=== PATIENT | female | born 1975 | race Caucasian/White ===

== ENCOUNTER 2016-12-07 19:37 | Emergency (ER) | payer SELFPAY ==
[2016-12-07 19:51] VITALS: BP 171/91
[2016-12-07] MEDS ORDERED: Ketorolac 60 MG/2 ML SDV IM ONE (20:53)
[2016-12-07] MEDS ORDERED: diphenhydrAMINE 50 MG/ML SDV IM ONE (20:54)
[2016-12-07] MEDS ORDERED: Haloperidol Lactate 5 MG/ML SDV IM ONE (20:54)
[2016-12-07] MEDS ORDERED: Ondansetron 4 MG Tab.DIS PO ONE (20:58)
--- NOTE | 2016-12-07 21:05 | EDM.PDOC ---
ED HPI HEADACHE COMPLAINT - General Chief Complaint: Headache Stated Complaint: POSSIBLE MIGRAINE Time Seen by Provider: 12/07/16 20:45 Source of Information: Reports: Patient History Limitations: Reports: No limitations - History of Present Illness INITIAL COMMENTS - FREE TEXT/NARRATIVE: Patient is a 41-year-old female who presents to the ED complaining of retro- orbital right-sided migraine that started at approximately 4:30 this afternoon upon awakening. Describes the headache as a throbbing sensation localized with no radiation. Complain of photophobia and hyperacusis. She denies any vision changes. She does have a history of MS and has chronic weakness noted. No new changes noted. She denies recent trauma to her head and or activity that may have precipitated this headache. Denies any changes to medications. She denies being . She denies recent illness, or any fever/chills, shortness of breath, chest pain, abdominal pain, numbness and tingling to extremities, stiff neck, or any additional complaints. Headache is following similar pattern to previous episodes. Timing/Duration: Reports: sudden onset, constant/continuous, waxing/waning Location: Reports: frontal, temporal, right, eye, right Quality: Reports: pounding, squeezing Severity: Reports: moderate, similar to past headaches. Denies: worst headache ever Context: Reports: other (unknown) Associated Symptoms: Reports: hyperacusis, photophobia. Denies: aura, confusion , dizziness, vision changes Treatments FURNACE FILLER: Reports: Other (see below) (none stated ) - Related Data Allergies/ADRs: Allergies Allergy/AdvReac Type Severity Reaction Status Date / Time chlorhexidine Allergy Rash Verified 12/07/16 19:51 ketoconazole Allergy Rash Verified 12/07/16 19:51 Penicillins AdvReac Vomiting Verified 12/07/16 19:51 sulfamethoxazole AdvReac Vomiting Verified 12/07/16 19:51 [From Bactrim] trimethoprim [From Bactrim] AdvReac Vomiting Verified 12/07/16 19:51 Home Meds: Home Meds Ibuprofen [Motrin] 800 mg PO Q8H PRN #20 tablet 08/05/16 [Rx] SUMAtriptan [Imitrex] 50 mg PO Q2H PRN 12/07/16 [History] Past Medical History HEENT History: Reports: Impaired vision Other HEENT History: wears glasses Genitourinary History: Reports: Renal calculus Musculoskeletal History: Reports: Back pain, chronic Neurological History: Reports: Migraines, MS Psychiatric History: Reports: Anxiety, Depression - Infectious Disease History Infectious Disease History: Reports: Chicken pox - Past Surgical History HEENT Surgical History: Reports: Tonsillectomy GI Surgical History: Reports: Appendectomy Musculoskeletal Surgical History: Reports: Other (see below) Other Musculoskeletal Surgeries/Procedures:: right lower back surgery cyst removal Social & Family History - Family History Family Medical History: Noncontributory - Tobacco Use Smoking Status *Q: Former Smoker Second Hand Smoke Exposure: No - Caffeine Use Caffeine Use: Reports: Soda - Alcohol Use Days Per Week of Alcohol Use: 0 - Recreational Drug Use Recreational Drug Use: No ED ROS GENERAL - Review of Systems Review Of Systems: See Below Constitutional: Denies: fever, chills, malaise, weakness, decreased appetite Respiratory: Reports: Cough (intermittent). Denies: Shortness of Breath Cardiovascular: Denies: Chest pain, Dyspnea on exertion, Lightheadedness, Palpitations, Syncope GI/Abdominal: Reports: Nausea (mild). Denies: Abdominal pain, Diarrhea, Vomiting : Reports: no symptoms Musculoskeletal: Denies: neck pain, back pain Neurological: Reports: Headache. Denies: Confusion, Dizziness, Numbness, Syncope, Tingling - Physical Exam Exam: See Below Exam Limited By: No limitations General Appearance: alert, WD/WN, mild distress, other (sitting in dark room on the phone) Eye Exam: bilateral eye: EOMI, PERRL (negative nystagmus) Ears: hearing grossly normal Nose: normal inspection Throat/Mouth: Normal voice, No airway compromise Head Exam: atraumatic, normocephalic Neck: normal inspection, supple, non-tender, full range of motion. No: lymphadenopathy (L), lymphadenopathy (R) Respiratory/Chest: no respiratory distress, lungs clear, normal breath sounds, no accessory muscle use Cardiovascular: normal peripheral pulses, regular rate, rhythm GI/Abdominal: normal bowel sounds, soft, non tender Neuro Exam (Abbreviated): alert, oriented, CN II-XII intact, normal cognition, no motor/sensory deficits, other (romberg intact. No weakness to upper/lower extremities) Back Exam: normal inspection, full range of motion Extremities: normal inspection, non-tender, no pedal edema, normal capillary refill Psychiatric: normal affect, normal mood Skin Exam: Warm, Dry, Intact, Normal color Course - Vital Signs Last Recorded V/S: Last Vital Signs Temp 97.8 F 12/07/16 19:40 Pulse 85 12/07/16 19:40 Resp 18 12/07/16 19:40 BP 171/91 H 12/07/16 19:40 Pulse Ox 98 12/07/16 19:40 - Orders/Labs/Meds Meds: Medications Discontinued Medications Generic Name Dose Route Start Last Admin Trade Name Davina PRGale Reason Stop Dose Admin Diphenhydramine HCl 50 mg 12/07/16 20:54 12/07/16 21:13 Benadryl IM 12/07/16 20:55 50 mg ONETIME ONE Administration Haloperidol Lactate 5 mg 12/07/16 20:54 12/07/16 21:17 Haldol IM 12/07/16 20:55 5 mg ONETIME ONE Administration Ketorolac Tromethamine 30 mg 12/07/16 20:53 12/07/16 21:10 Toradol IM 12/07/16 20:54 30 mg ONETIME ONE Administration Ondansetron HCl 4 mg 12/07/16 20:58 12/07/16 21:08 Zofran Odt PO 12/07/16 20:59 4 mg ONETIME ONE Administration - Re-Assessments/Exams Free Text/Narrative Re-Assessment/Exam: 12/07/16 21:02 Ordered IM Toradol 30 mg, Zofran 4 mg ODT, Benadryl 50 mg IM, and 5 mg IM. 12/07/16 22:20 Reassessment, headache is almost gone. Patient is requesting to be discharged home. Will discharge patient home with instructions as documented. Departure - Departure Time of Disposition: 22:20 Disposition: Home, Self-Care 01 Condition: good Clinical Impression: Migraine Referrals: Marylin Sharma NP [Primary Care Provider] - Forms: ED Department Discharge, Return to Work/School Form Additional Instructions: Followup with your primary care provider as needed for further management and treatment of migraines. No driving this evening since receiving sedative medication while in the ED. Return back to the ED for any new or worsening symptoms.v
== END 2016-12-07 22:35 | disposition home or self-care (01) ==
LOC: JD.ED 19:37
DX: G43.909 Migraine, unspecified, not intractable, without status migrainosus (principal); F41.8 Other specified anxiety disorders; Z90.49 Acquired absence of other specified parts of digestive tract; Z98.890 Other specified postprocedural states; Z87.891 Personal history of nicotine dependence; Z88.0 Allergy status to penicillin; Z88.1 Allergy status to other antibiotic agents; Z88.2 Allergy status to sulfonamides; Z88.8 Allergy status to other drugs, medicaments and biological substances
CPT/HCPCS: 96372; 99283; A9270; J1200; J1630; J1885

== ENCOUNTER 2017-05-25 20:25 | Emergency (ER) | payer OTHER ==
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
[2017-05-25 20:39] VITALS: BP 135/67
[2017-05-25] MEDS ORDERED: Lactated Ringers 1,000 ML IV ONE (20:55)
[2017-05-25] MEDS ORDERED: diphenhydrAMINE 50 MG/ML SDV IVPUSH ONE (20:55)
[2017-05-25] MEDS ORDERED: Ondansetron 4 MG/2 ML SDV IVPUSH ONE (20:55)
--- NOTE | 2017-05-26 09:42 | CR ---
Lumbar spine: AP and lateral views of the lumbar spine were obtained. Comparison: No previous study. Moderate to severe disc space narrowing is noted at L5-S1 with posterior spurring. Other disc spaces are maintained. Vertebral body heights are maintained. Slight anterior osteophytes are seen within the lumbar spine most prominent at L4. Minimal scoliosis is noted. Pedicles as well as visualized portions of the transverse and spinous processes are intact. No subluxation or fracture is seen. Sacroiliac joints are within normal limits. Impression: 1. Slight degenerative change as noted above. Minimal scoliosis. 2. Nothing acute is identified on two-view lumbar spine study. Diagnostic code #2
== END 2017-05-25 23:10 | disposition home or self-care (01) ==
LOC: JD.ED 20:25
DX: S16.1XXA Strain of muscle, fascia and tendon at neck level, initial encounter (principal); R51 Headache; G20 Parkinson's disease; F32.9 Major depressive disorder, single episode, unspecified; Z87.442 Personal history of urinary calculi; Z87.891 Personal history of nicotine dependence; Z88.0 Allergy status to penicillin; Z88.1 Allergy status to other antibiotic agents; Z88.2 Allergy status to sulfonamides; Z88.8 Allergy status to other drugs, medicaments and biological substances; V89.2XXA Person injured in unspecified motor-vehicle accident, traffic, initial encounter; Y92.410 Unspecified street and highway as the place of occurrence of the external cause
CPT/HCPCS: 72100; 96361; 96374; 96375; 99284; J1200; J2405; J3360; J7120; 99283

== ENCOUNTER 2017-06-08 14:14 | Emergency (ER) | payer OTHER ==
[2017-06-08 14:35] VITALS: BP 137/60
[2017-06-08] MEDS ORDERED: Ketorolac 60 MG/2 ML SDV IM ONE (15:16)
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
== END 2017-06-08 15:50 | disposition home or self-care (01) ==
LOC: JD.ED 14:14
DX: M54.41 Lumbago with sciatica, right side (principal); F32.9 Major depressive disorder, single episode, unspecified; Z90.49 Acquired absence of other specified parts of digestive tract; Z87.891 Personal history of nicotine dependence; Z88.0 Allergy status to penicillin; Z88.1 Allergy status to other antibiotic agents; Z88.8 Allergy status to other drugs, medicaments and biological substances
CPT/HCPCS: 96372; 99283; J1885

== ENCOUNTER 2017-06-19 14:27 | Emergency (ER) | payer SELFPAY ==
[2017-06-19 14:41] VITALS: BP 146/88
--- NOTE | 2017-06-19 15:11 | EDM.PDOC ---
ED HPI GENERAL MEDICAL PROBLEM - General Chief Complaint: Genitourinary Problem Stated Complaint: VAGINAL BURNING Time Seen by Provider: 06/19/17 15:00 Source of Information: Reports: Patient History Limitations: Reports: No Limitations - History of Present Illness INITIAL COMMENTS - FREE TEXT/NARRATIVE: 42-year-old female presents for evaluation treatment of vaginal burning. Patient reports that the symptoms have been going on the last 2 weeks. She states that she has been taking Azo for yeast symptoms initially improved but then the symptoms returned. She reports that the pain worsening and therefore decided to come to the ER for further management. Patient is reporting vaginal discharge any foul vaginal odor. She reports discharge has let up today. She reports some dysuria several days ago but then resolves. Denies any fevers, chills, nausea, vomiting, abdominal pain or hematuria. Patient reports that she did have intercourse 2 days ago. Reports that her fianc has a ketoconazole cream that he may have used which may have worsened things. She has an allergy to ketoconazole. Patient reports that she cannot take Monistat. States Diflucan has not been working for her in the past. Feels she has a yeast infection today. Vaginal Pain Score (Numeric/FACES): 10 - Related Data Allergies Allergy/AdvReac Type Severity Reaction Status Date / Time chlorhexidine Allergy Rash Verified 06/08/17 14:36 ketoconazole Allergy Rash Verified 05/25/17 21:48 Penicillins AdvReac Vomiting Verified 06/08/17 14:36 sulfamethoxazole AdvReac Vomiting Verified 06/08/17 14:36 [From Bactrim] trimethoprim [From Bactrim] AdvReac Vomiting Verified 06/08/17 14:36 Home Meds: Home Meds Ibuprofen [Motrin] 800 mg PO Q8H PRN #20 tablet 08/05/16 [Rx] Orphenadrine [Norflex] 100 mg PO BID #30 tab.er 06/08/17 [Rx] Nystatin 30 gm TP BID #1 bottle 06/19/17 [Rx] Past Medical History HEENT History: Reports: Impaired Vision Other HEENT History: wears glasses Genitourinary History: Reports: Renal Calculus Musculoskeletal History: Reports: Back Pain, Chronic Neurological History: Reports: Migraines, MS Psychiatric History: Reports: Anxiety, Depression - Infectious Disease History Infectious Disease History: Reports: Chicken Pox - Past Surgical History GI Surgical History: Reports: Appendectomy Social & Family History - Family History Family Medical History: Noncontributory - Tobacco Use Smoking Status *Q: Never Smoker Used Tobacco, but Quit: Yes Month Tobacco Last Used: may Second Hand Smoke Exposure: No - Caffeine Use Caffeine Use: Reports: Soda - Alcohol Use Days Per Week of Alcohol Use: 0 - Recreational Drug Use Recreational Drug Use: No ED ROS GENERAL - Review of Systems Review Of Systems: See Below Constitutional: Denies: Fever GI/Abdominal: Denies: Abdominal Pain, Nausea, Vomiting : Reports: Dysuria (on and off), Other (reprots vaginal burning and discharge ; reports vaginal discharge, minimal today). Denies: Hematuria ED EXAM, RENAL/ - Physical Exam Exam: See Below Exam Limited By: No Limitations General Appearance: Alert, WD/WN, No Apparent Distress Respiratory/Chest: No Respiratory Distress, Lungs Clear, Normal Breath Sounds Cardiovascular: Normal Peripheral Pulses, Regular Rate, Rhythm, No Murmur GI/Abdominal: Soft, Non-Tender (Female) Exam: Normal External Exam, Normal Speculum Exam, Vaginal Discharge (white yeast like discharge; also thinner clear white cdischarge) Neurological: Alert, Oriented, Normal Cognition Psychiatric: Normal Affect, Normal Mood Skin Exam: Warm, Dry, Normal Color Course - Vital Signs Last Recorded V/S: Last Vital Signs Temp 36.8 C 06/19/17 14:40 Pulse 88 06/19/17 14:40 Resp 20 06/19/17 14:40 BP 146/88 H 06/19/17 14:40 Pulse Ox 98 06/19/17 14:40 - Orders/Labs/Meds Orders: Active Orders 24 hr Category Date Time Status Pelvic Exam, Set Up [RC] ASDIRECTED Care 06/19/17 15:07 Active CULTURE URINE [RM] Stat Lab 06/19/17 15:30 Received Labs: Laboratory Tests 06/19/17 Range/Units 15:30 Urine Color Yellow (Yellow) Urine Appearance Clear (Clear) Urine pH 7.0 (5.0-8.0) Ur Specific [place] 1.020 (1.005-1.030) Urine Protein Negative (Negative) Urine Glucose (UA) Negative (Negative) Urine Ketones Negative (Negative) Urine Occult Blood Trace-lysed H (Negative) Urine Nitrite Negative (Negative) Urine Bilirubin Negative (Negative) Urine Urobilinogen 0.2 (0.2-1.0) Ur Leukocyte Esterase Negative (Negative) Urine RBC 0-5 (0-5) /hpf Urine WBC 0-5 (0-5) /hpf Ur Epithelial Cells 5-10 H (0-5) /hpf Urine Bacteria Few (FEW) /hpf Urine Mucus Few (FEW) /hpf - Re-Assessments/Exams Free Text/Narrative Re-Assessment/Exam: 06/19/17 16:47 wet prep has moderate clue cells and few yeast. She was offered additional STD testing but declined. Will treat with flagyl PO and nystatin topical. discharge instructions as documented. Departure - Departure Time of Disposition: 16:50 Disposition: Home, Self-Care 01 Condition: Good Clinical Impression: Bacterial vaginosis, Soni vaginitis - Discharge Information Prescriptions: Nystatin 30 gm TP BID #1 bottle Instructions: Vaginitis, Kova-[id number], Bacterial Vaginosis, [id number]-[id number] Referrals: Marylin Sharma MARKET RESEARCH INTERVIEWER [Primary Care Provider] - Forms: ED Department Discharge Additional Instructions: flagyl 500mg PO bid x 7 days given from instymeds Flagyl 1 tab twice a day for 7 days. Avoid alcohol while on this antibiotic. Nystatin twice a day for 7 days. Follow-up with your primary care provider if your symptoms persist beyond 7 days. Please return to the ER if your symptoms change or worsen. - My Orders Last 24 Hours: My Active Orders 06/19/17 15:07 Pelvic Exam, Set Up [] ASDIRECTED 06/19/17 15:30 CULTURE URINE [RM] Stat - Assessment/Plan Last 24 Hours: My Active Orders 06/19/17 15:07 Pelvic Exam, Set Up [RC] ASDIRECTED 06/19/17 15:30 CULTURE URINE [RM] Stat
== END 2017-06-19 17:17 | disposition home or self-care (01) ==
LOC: JD.ED 14:27
DX: N76.0 Acute vaginitis (principal); B37.3 Candidiasis of vulva and vagina; Z88.8 Allergy status to other drugs, medicaments and biological substances; Z88.0 Allergy status to penicillin; Z88.2 Allergy status to sulfonamides; Z87.442 Personal history of urinary calculi
CPT/HCPCS: 81001; 87086; 87210; 87808; 99283

== ENCOUNTER 2017-09-19 23:24 | Emergency (ER) | payer SELFPAY ==
[2017-09-19 23:52] VITALS: BP 150/79
[2017-09-20] MEDS ORDERED: Sodium Chloride 0.9% 10 ML Syringe FLUSH PRN (00:22)
--- NOTE | 2017-09-20 00:47 | EDM.PDOC ---
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 This has been on and off for a couple weeks but it has gotten worse. She was passing large clots today. She thinks she may be but she is not sure. She has no fever, chills, cough, chest pain, shortness of breath or dysuria. She soaked 4 pads today. Onset: Gradual Duration: Week(s): Location: Reports: Pelvis Quality: Reports: Other (cramping) Severity: Severe Improves with: Reports: None Worsens with: Reports: None Associated Symptoms: Reports: No Other Symptoms Lower Pelvic Pain Score (Numeric/FACES): 8 - Related Data Allergies Allergy/AdvReac Type Severity Reaction Status Date / Time chlorhexidine Allergy Rash Verified 09/19/17 23:44 ketoconazole Allergy Rash Verified 09/19/17 23:44 Penicillins AdvReac Vomiting Verified 09/19/17 23:44 sulfamethoxazole AdvReac Vomiting Verified 09/19/17 23:44 [From Bactrim] trimethoprim [From Bactrim] AdvReac Vomiting Verified 09/19/17 23:44 Home Meds: Home Meds medroxyPROGESTERone [Provera] 10 mg PO DAILY #9 tab 09/20/17 [Rx] Past Medical History HEENT History: Reports: Impaired Vision Other HEENT History: wears glasses Genitourinary History: Reports: Renal Calculus Musculoskeletal History: Reports: Back Pain, Chronic Neurological History: Reports: Migraines, MS Psychiatric History: Reports: Anxiety, Depression - Infectious Disease History Infectious Disease History: Reports: Chicken Pox - Past Surgical History GI Surgical History: Reports: Appendectomy Social & Family History - Family History Family Medical History: Noncontributory - Tobacco Use Smoking Status *Q: Never Smoker Used Tobacco, but Quit: Yes Month Tobacco Last Used: may Second Hand Smoke Exposure: No - Caffeine Use Caffeine Use: Reports: Soda - Alcohol Use Days Per Week of Alcohol Use: 0 - Recreational Drug Use Recreational Drug Use: No ED ROS GENERAL - Review of Systems Review Of Systems: See Below Constitutional: Reports: No Symptoms HEENT: Reports: No Symptoms Respiratory: Reports: No Symptoms Cardiovascular: Reports: No Symptoms Endocrine: Reports: No Symptoms GI/Abdominal: Reports: Abdominal Pain. Denies: Diarrhea, Nausea, Vomiting : Reports: Other (Vaginal bleeding and cramping) Musculoskeletal: Reports: No Symptoms ED EXAM, RENAL/ - Physical Exam Exam: See Below Exam Limited By: No Limitations General Appearance: Alert, No Apparent Distress Ears: Normal External Exam Nose: Normal Inspection Head: Atraumatic, Normocephalic Neck: Normal Inspection Respiratory/Chest: No Respiratory Distress, Lungs Clear, Normal Breath Sounds Cardiovascular: Regular Rate, Rhythm, No Edema, No Murmur GI/Abdominal: Soft, No Organomegaly, Tender (Mild to the lower abdomen) (Female) Exam: Other (Moderate amount of dark blood in the vagina) Course - Vital Signs Last Recorded V/S: Last Vital Signs Temp 98.2 F 09/19/17 23:46 Pulse 74 09/19/17 23:46 Resp 18 09/19/17 23:46 BP 150/79 H 09/19/17 23:46 Pulse Ox 100 09/19/17 23:46 - Orders/Labs/Meds Orders: Active Orders 24 hr Category Date Time Status Cardiac Monitoring [RC] . DIRECTED Care 09/20/17 00:22 Active Pelvic Exam, Set Up [RC] ASDIRECTED Care 09/20/17 00:23 Active Peripheral IV Care [RC] . DIRECTED Care 09/20/17 00:23 Active Transvaginal Non OB [US] Stat Exams 09/20/17 00:23 Taken ABO/RH TYPE [BBK] Stat Lab 09/20/17 01:30 Results PATIENT RETYPE [BBK] Stat Lab 09/20/17 01:30 Results Sodium Chloride 0.9% [Saline Flush] Med 09/20/17 00:22 Active 10 ml FLUSH ASDIRECTED PRN Peripheral IV Insertion Adult [OM.PC] Stat Oth 09/20/17 00:22 Ordered Medication Orders Sodium Chloride (Saline Flush) 10 ml FLUSH ASDIRECTED PRN PRN Reason: Keep Vein Open Labs: Laboratory Tests 09/20/17 09/20/17 09/20/17 Range/Units 01:30 01:30 01:30 WBC 10.48 H (3.98-10.04) K/mm3 RBC 4.71 (3.98-5.22) M/mm3 Hgb 13.8 (11.2-15.7) gm/L Hct 41.6 (34.1-44.9) % MCV 88.3 (79.4-94.8) fl MCH 29.3 (25.6-32.2) pg MCHC 33.2 (32.2-35.5) g/dl RDW Std Deviation 41.9 (36.4-46.3) fL Plt Count 372 H (182-369) K/mm3 MPV 10.3 (9.4-12.3) fl Neut % (Auto) 66.3 (34.0-71.1) % Lymph % (Auto) 18.6 L (19.3-51.7) % [place] % (Auto) 11.9 (4.7-12.5) % Eos % (Auto) 1.8 (0.7-5.8) Baso % (Auto) 0.8 (0.1-1.2) % Neut # (Auto) 6.95 H (1.56-6.13) K/mm3 Lymph # (Auto) 1.95 (1.18-3.74) K/mm3 [place] # (Auto) 1.25 H (0.24-0.36) K/mm3 Eos # (Auto) 0.19 (0.04-0.36) K/mm3 Baso # (Auto) 0.08 (0.01-0.08) K/mm3 HCG, Qual Negative (NEGATIVE) Blood Type O POSITIVE Meds: Medications Generic Name Dose Route Start Last Admin Trade Name Freq PRN Reason Stop Dose Admin Sodium Chloride 10 ml 09/20/17 00:22 Saline Flush FLUSH ASDIRECTED PRN Keep Vein Open Discontinued Medications Generic Name Dose Route Start Last Admin Trade Name Freq PRN Reason Stop Dose Admin Medroxyprogesterone Acetate 10 mg 09/20/17 02:59 Provera PO 09/20/17 03:00 ONETIME ONE - Re-Assessments/Exams Free Text/Narrative Re-Assessment/Exam: 09/20/17 00:47 I ordered an IV saline lock labs, and a transvaginal US. 09/20/17 02:55 Her WBC was slightly elevated at 10.48. Her HGB was normal at 13.8. Her HCG was negative. Her blood was o positive. Her US shows endometrium is thickened measuring 17mm, with a heterogeneous appearance. No significant associated vascularity. No focal mass. 09/20/17 03:05 I will get her on provera 10mg daily for 10 days and refer her to Dr King. Departure - Departure Time of Disposition: 03:05 Disposition: Home, Self-Care 01 Condition: Good Clinical Impression: Dysfunctional uterine bleeding - Discharge Information Prescriptions: medroxyPROGESTERone [Provera] 10 mg PO DAILY #9 tab Referrals: PCP,None [Primary Care Provider] - Esther King MD [Physician] - 1 Week Forms: ED Department Discharge Additional Instructions: Take the provera daily for 9 days. Follow up with Dr King this week. Please return if you are worse. - My Orders Last 24 Hours: My Active Orders 09/20/17 00:22 Cardiac Monitoring [RC] . DIRECTED Sodium Chloride 0.9% [Saline Flush] 10 ml FLUSH ASDIRECTED PRN Peripheral IV Insertion Adult [OM.PC] Stat 09/20/17 00:23 Pelvic Exam, Set Up [RC] ASDIRECTED Peripheral IV Care [RC] . DIRECTED Transvaginal Non OB [US] Stat 09/20/17 01:30 ABO/RH TYPE [BBK] Stat PATIENT RETYPE [BBK] Stat - Assessment/Plan Last 24 Hours: My Active Orders 09/20/17 00:22 Cardiac Monitoring [RC] . DIRECTED Sodium Chloride 0.9% [Saline Flush] 10 ml FLUSH ASDIRECTED PRN Peripheral IV Insertion Adult [OM.PC] Stat 09/20/17 00:23 Pelvic Exam, Set Up [RC] ASDIRECTED Peripheral IV Care [RC] . DIRECTED Transvaginal Non OB [US] Stat 09/20/17 01:30 ABO/RH TYPE [BBK] Stat PATIENT RETYPE [BBK] Stat
--- NOTE | 2017-09-20 08:24 | US ---
Addendum: Endometrial lining mentioned is heterogeneous in the body of the report and inhomogeneous in the impression. These two descriptions can be used interchangeably. --- Addendum1 above dictated on [09/22/2017 06:59] by [Lawrence Locke, Jonathan Rosado] --- --- Addendum1 above signed on [09/22/2017 07:20] by [Lawrence Locke Hilton J.] --- --- Original report below dictated on [09/20/2017 07:53] by [Lawrence Locke Hilton J.] --- --- Original report below signed on [09/20/2017 08:21] by [Lawrence Locke Hilton J.] --- Pelvic ultrasound: Multiple real-time images were obtained transvaginally. Comparison: No prior pelvic ultrasound. Uterus is retroverted. No myometrial abnormality is identified. Incidental nabothian cysts are present. Endometrial thickness is 1.7 cm which is at the upper limits of normal. Endometrial lining shows a slightly heterogeneous appearance. Simple 3.0 cm cyst noted within the left ovary. Two cysts noted within the right ovary believed to be physiologic. No free fluid is seen. Measurements: Uterus: Length 7.5 cm, AP height 4.1 cm, width 5.9 cm Right ovary: 2.4 x 1.6 x 1.9 cm Left ovary: 4.1 x 2.4 x 3.5 cm Impression: 1. 1.7 cm endometrial thickness. Endometrium appears somewhat inhomogeneous. 2. Simple 3.0 cm cyst within the left ovary believed to be incidental. Diagnostic code #3 I agree with preliminary report issued by [facility] ([facility] report finalized on 09/20/17, 3:51 AM Central Time) --- Addendum1 signed ---
== END 2017-09-20 03:38 | disposition home or self-care (01) ==
LOC: JD.ED 23:24
DX: N93.8 Other specified abnormal uterine and vaginal bleeding (principal); Z88.1 Allergy status to other antibiotic agents; Z88.0 Allergy status to penicillin; Z88.2 Allergy status to sulfonamides; Z79.899 Other long term (current) drug therapy
CPT/HCPCS: 36415; 76830; 84703; 85025; 86900; 86901; 99284; A9270; 99283

== ENCOUNTER 2017-11-09 07:15 | Emergency (ER) | payer SELFPAY ==
[2017-11-09 07:31] VITALS: BP 152/75
--- NOTE | 2017-11-09 07:47 | EDM.PDOC ---
ED HPI GENERAL MEDICAL PROBLEM - General Chief Complaint: ENT Problem Stated Complaint: DENTAL COMPLAINT Time Seen by Provider: 11/09/17 07:38 Source of Information: Reports: Patient, RN Notes Reviewed - History of Present Illness INITIAL COMMENTS - FREE TEXT/NARRATIVE: 42-year-old female comes in with right lower posterior dental pain. His been worsening over the past several days. The posterior molar of her right lower jaw chip dog at least several weeks ago. Now she is starting to have mild swelling of the jaws well. Hot and cold sensitive. No fever or chills. Right Oral/Mouth Pain Score (Numeric/FACES): 8 - Related Data Allergies Allergy/AdvReac Type Severity Reaction Status Date / Time chlorhexidine Allergy Rash Verified 11/09/17 07:33 ketoconazole Allergy Rash Verified 11/09/17 07:33 Penicillins AdvReac Vomiting Verified 11/09/17 07:33 sulfamethoxazole AdvReac Vomiting Verified 11/09/17 07:33 [From Bactrim] trimethoprim [From Bactrim] AdvReac Vomiting Verified 11/09/17 07:33 Home Meds: Home Meds Acetaminophen/HYDROcodone [[place] 325-5 MG] 1 tab PO Q6H PRN #14 tablet 11/09/17 [Rx] Clindamycin HCl 300 mg PO Q6HR #30 capsule 11/09/17 [Rx] Past Medical History HEENT History: Reports: Impaired Vision Other HEENT History: wears glasses Genitourinary History: Reports: Renal Calculus Musculoskeletal History: Reports: Back Pain, Chronic Neurological History: Reports: Migraines, MS Psychiatric History: Reports: Anxiety, Depression - Infectious Disease History Infectious Disease History: Reports: Chicken Pox - Past Surgical History HEENT Surgical History: Reports: Tonsillectomy GI Surgical History: Reports: Appendectomy Neurological Surgical History: Reports: Lumbar Spine Social & Family History - Family History Family Medical History: Noncontributory - Tobacco Use Smoking Status *Q: Never Smoker Used Tobacco, but Quit: Yes Month Tobacco Last Used: may Second Hand Smoke Exposure: No - Caffeine Use Caffeine Use: Reports: Soda - Alcohol Use Days Per Week of Alcohol Use: 0 - Recreational Drug Use Recreational Drug Use: No ED ROS ENT - Review of Systems Review Of Systems: See Below Constitutional: Denies: Fever, Chills HEENT: Reports: Dental Pain Respiratory: Denies: Shortness of Breath Cardiovascular: Denies: Chest Pain GI/Abdominal: Denies: Abdominal Pain, Nausea, Vomiting ED EXAM, ENT - Physical Exam Exam: See Below General Appearance: Alert, Mild Distress Mouth/Throat: Dental Pain (Right lower posterior molar is fractured off, deeply cavitated, tender, very minimal swelling of the go home, no drainage). No: Pharyngeal Erythema, Throat Pain, Throat Swelling Head: Facial Swelling (Question very slight right facial swelling in the area of the right jaw) Neck: Supple, Full Range of Motion. No: Lymphadenopathy (L), Lymphadenopathy (R ) Respiratory/Chest: No Respiratory Distress Cardiovascular: Regular Rate, Rhythm Neurological: Alert, Oriented Skin: Warm, Dry, Normal Color Course - Vital Signs Last Recorded V/S: Last Vital Signs Temp 98.1 F 11/09/17 07:28 Pulse 78 11/09/17 07:28 Resp 16 11/09/17 07:28 BP 152/75 H 11/09/17 07:28 Pulse Ox 99 11/09/17 07:28 Departure - Departure Time of Disposition: 07:45 Disposition: Home, Self-Care 01 Condition: Fair Clinical Impression: Pain, dental - Discharge Information Prescriptions: Clindamycin HCl 300 mg PO Q6HR #30 capsule Acetaminophen/HYDROcodone [[place] 325-5 MG] 1 tab PO Q6H PRN #14 tablet PRN Reason: Pain Referrals: Marylin Sharma SCIENCE LIAISON [Primary Care Provider] - Forms: ED Department Discharge
== END 2017-11-09 07:54 | disposition home or self-care (01) ==
LOC: JD.ED 07:15
DX: K08.89 Other specified disorders of teeth and supporting structures (principal); K02.9 Dental caries, unspecified; Z88.0 Allergy status to penicillin; Z88.8 Allergy status to other drugs, medicaments and biological substances
CPT/HCPCS: 99282; 99283

== ENCOUNTER 2017-12-03 17:27 | Emergency (ER) | payer SELFPAY ==
[2017-12-03 17:48] VITALS: BP 145/73
[2017-12-03] MEDS ORDERED: LORazepam 1 MG Tab PO ONE (21:07)
--- NOTE | 2017-12-03 21:14 | EDM.PDOC ---
ED HPI GENERAL MEDICAL PROBLEM - General Chief Complaint: Eye Problems Stated Complaint: MS GIVING HER TROUBLE Time Seen by Provider: 12/03/17 17:51 Source of Information: Reports: Patient, RN Notes Reviewed - History of Present Illness INITIAL COMMENTS - FREE TEXT/NARRATIVE: 42 year old female with F facial twitching yesterday and today. She does have hx of MS. Has not been sleeping well the last few day, also works nights and that does make getting good rest more difficulty. Has not been ill with nasal or sinus cole. No facial pain. Peripheral vision R eye more sahu than usual. She has had that before. No Damon, nausea or vomiting. - Related Data Allergies Allergy/AdvReac Type Severity Reaction Status Date / Time chlorhexidine Allergy Rash Verified 11/09/17 07:33 ketoconazole Allergy Rash Verified 11/09/17 07:33 Penicillins AdvReac Vomiting Verified 11/09/17 07:33 sulfamethoxazole AdvReac Vomiting Verified 11/09/17 07:33 [From Bactrim] trimethoprim [From Bactrim] AdvReac Vomiting Verified 11/09/17 07:33 Home Meds: Home Meds . [No Known Home Meds] 12/03/17 [History] Past Medical History HEENT History: Reports: Impaired Vision Other HEENT History: wears glasses Genitourinary History: Reports: Renal Calculus Musculoskeletal History: Reports: Back Pain, Chronic, Other (See Below) Neurological History: Reports: Migraines, MS Psychiatric History: Reports: Anxiety, Depression - Infectious Disease History Infectious Disease History: Reports: Chicken Pox - Past Surgical History HEENT Surgical History: Reports: Tonsillectomy GI Surgical History: Reports: Appendectomy Neurological Surgical History: Reports: Lumbar Spine Social & Family History - Family History Family Medical History: Noncontributory - Tobacco Use Smoking Status *Q: Never Smoker Used Tobacco, but Quit: Yes Month/Year Tobacco Last Used: may Second Hand Smoke Exposure: No - Caffeine Use Caffeine Use: Reports: Soda - Alcohol Use Days Per Week of Alcohol Use: 0 - Recreational Drug Use Recreational Drug Use: No ED ROS GENERAL - Review of Systems Review Of Systems: See Below Constitutional: Denies: Fever, Chills, Diaphoresis HEENT: Reports: Vision Change. Denies: Ear Pain, Eye Discharge, Eye Pain, Rhinitis, Sinus Problem, Throat Pain Respiratory: Denies: Shortness of Breath, Cough Cardiovascular: Denies: Chest Pain GI/Abdominal: Denies: Abdominal Pain, Nausea, Vomiting Musculoskeletal: Denies: Neck Pain, Back Pain Skin: Reports: No Symptoms Neurological: Denies: Headache, Numbness, Tingling, Trouble Speaking, Difficulty Walking, Weakness ED EXAM GENERAL W FULL EYE - Physical Exam Exam: See Below General Appearance: Alert, No Apparent Distress Eye Exam: Bilateral Eye: PERRL Conjunctiva & Sclera: Bilateral: Normal Appearance Extraocular Movements: Bilateral: Intact Nose: Normal Inspection Throat/Mouth: Normal Inspection Head: Atraumatic. No: Facial Swelling Neck: Supple, Full Range of Motion Respiratory/Chest: No Respiratory Distress, Lungs Clear, Normal Breath Sounds Cardiovascular: Regular Rate, Rhythm Extremities: Normal Inspection, Normal Range of Motion Neurological: Alert, Oriented, No Motor/Sensory Deficits Skin Exam: Warm, Dry, Normal Color, No Rash Course - Vital Signs Last Recorded V/S: Last Vital Signs Temp 98.5 F 12/03/17 17:47 Pulse 70 12/03/17 17:47 Resp 20 12/03/17 17:47 BP 145/73 H 12/03/17 17:47 Pulse Ox 98 12/03/17 17:47 - Orders/Labs/Meds Labs: Laboratory Tests 12/03/17 12/03/17 Range/Units 19:20 19:20 WBC 12.58 H (3.98-10.04) K/mm3 RBC 4.68 (3.98-5.22) M/mm3 Hgb 13.7 (11.2-15.7) gm/L Hct 41.2 (34.1-44.9) % MCV 88.0 (79.4-94.8) fl MCH 29.3 (25.6-32.2) pg MCHC 33.3 (32.2-35.5) g/dl RDW Std Deviation 42.1 (36.4-46.3) fL Plt Count 324 (182-369) K/mm3 MPV 10.6 (9.4-12.3) fl Neut % (Auto) 67.1 (34.0-71.1) % Lymph % (Auto) 17.9 L (19.3-51.7) % [place] % (Auto) 12.2 (4.7-12.5) % Eos % (Auto) 1.6 (0.7-5.8) Baso % (Auto) 0.7 (0.1-1.2) % Neut # (Auto) 8.45 H (1.56-6.13) K/mm3 Lymph # (Auto) 2.25 (1.18-3.74) K/mm3 [place] # (Auto) 1.53 H (0.24-0.36) K/mm3 Eos # (Auto) 0.20 (0.04-0.36) K/mm3 Baso # (Auto) 0.09 H (0.01-0.08) K/mm3 Manual Slide Review Normal smear Sodium 138 (136-145) mEq/L Potassium 4.1 (3.5-5.1) mEq/L Chloride 101 (98-107) mEq/L Carbon Dioxide 29 (21-32) mEq/L Anion Gap 12.1 (5-15) BUN 16 (7-18) mg/dL Creatinine 0.7 (0.55-1.02) mg/dL Est Cr Clr Drug Dosing 104.53 mL/min Estimated GFR (MDRD) > 60 (>60) mL/min BUN/Creatinine Ratio 22.9 H (14-18) Glucose 94 (74-106) mg/dL Calcium 9.4 (8.5-10.1) mg/dL Total Bilirubin 0.3 (0.2-1.0) mg/dL AST 13 L (15-37) U/L ALT 25 (14-59) U/L Alkaline Phosphatase 100 (46-116) U/L Total Protein 8.1 (6.4-8.2) g/dl Albumin 3.9 (3.4-5.0) g/dl Globulin 4.2 gm/dL Albumin/Globulin Ratio 0.9 L (1-2) Meds: Medications Discontinued Medications Generic Name Dose Route Start Last Admin Trade Name Freq PRN Reason Stop Dose Admin Lorazepam 1 mg 12/03/17 21:07 12/03/17 21:18 Ativan PO 12/03/17 21:08 1 mg ONETIME ONE Administration - Re-Assessments/Exams Free Text/Narrative Re-Assessment/Exam: 12/07/17 11:09 WBC very mildly elevated, chem. are nl, discharge instr. as documented. Will hold off on steroids for now. Departure - Departure Time of Disposition: 21:10 Disposition: Home, Self-Care 01 Condition: Fair Clinical Impression: Facial twitching, Multiple sclerosis - Discharge Information Instructions: Multiple Sclerosis Referrals: Marylin Sharma LEAK DETECTION ENGINEER [Primary Care Provider] - Forms: ED Department Discharge Additional Instructions: you have been given 0.5 mg ativan to help you sleep and to help the facial twitching here in the ED at time of discharge. Take the 2nd 1/2 mg tomorrow PM at bedtime. You may take further dosage if needed for the next 3 to [address] work within 8 hours of taking the ativan. If this makes you to drowsy the following morning cut those down to 1/4 of a 1mg tab. Follow up clinic as needed if symptoms not resolving as expected.
== END 2017-12-03 21:22 | disposition home or self-care (01) ==
LOC: JD.ED 17:27
DX: G35 Multiple sclerosis (principal); Z87.891 Personal history of nicotine dependence; Z88.0 Allergy status to penicillin; Z88.2 Allergy status to sulfonamides; Z88.1 Allergy status to other antibiotic agents; Z88.8 Allergy status to other drugs, medicaments and biological substances
CPT/HCPCS: 36415; 80053; 85025; 99283; A9270

== ENCOUNTER 2018-01-03 07:19 | Emergency (ER) | payer SELFPAY ==
[2018-01-03 07:26] VITALS: BP 155/71
[2018-01-03] MEDS ORDERED: Metoclopramide 10 MG/2 ML SDV IVPUSH ONE (07:47)
[2018-01-03] MEDS ORDERED: diphenhydrAMINE 50 MG/ML SDV IVPUSH ONE (07:47)
[2018-01-03] MEDS ORDERED: Sodium Chloride 0.9% 10 ML Syringe FLUSH PRN (07:47)
[2018-01-03] MEDS ORDERED: Ketorolac 30 MG/ML SDV IVPUSH SCH (08:00)
[2018-01-03] MEDS ORDERED: Sodium Chloride 0.9% 1,000 ML IV SCH (08:00)
--- NOTE | 2018-01-03 08:09 | EDM.PDOC ---
ED HPI GENERAL MEDICAL PROBLEM - General Chief Complaint: Headache Stated Complaint: HEADACHE Time Seen by Provider: 01/03/18 07:42 Source of Information: Reports: Patient, RN Notes Reviewed - History of Present Illness INITIAL COMMENTS - FREE TEXT/NARRATIVE: 42-year-old female comes in with headache. This started about 5 days ago. Primarily left-sided throbbing, just not going away. She has had some nausea with this, no vomiting. Medications taken at home given some relief but the headache does keep coming back, moderately severe at this time. No recent cough fever chills or sinus difficulty. Headache is similar to prior headaches that she has had. Left Headache Pain Score (Numeric/FACES): 8 - Related Data Allergies Allergy/AdvReac Type Severity Reaction Status Date / Time chlorhexidine Allergy Rash Verified 01/03/18 07:27 ketoconazole Allergy Rash Verified 01/03/18 07:27 Penicillins AdvReac Vomiting Verified 01/03/18 07:27 sulfamethoxazole AdvReac Vomiting Verified 01/03/18 07:27 [From Bactrim] trimethoprim [From Bactrim] AdvReac Vomiting Verified 01/03/18 07:27 Home Meds: Home Meds . [No Known Home Meds] 12/03/17 [History] Past Medical History HEENT History: Reports: Impaired Vision Other HEENT History: wears glasses Genitourinary History: Reports: Renal Calculus Musculoskeletal History: Reports: Back Pain, Chronic Neurological History: Reports: Migraines, MS Psychiatric History: Reports: Anxiety, Depression - Infectious Disease History Infectious Disease History: Reports: Chicken Pox - Past Surgical History HEENT Surgical History: Reports: Tonsillectomy GI Surgical History: Reports: Appendectomy Neurological Surgical History: Reports: Lumbar Spine Social & Family History - Family History Family Medical History: Noncontributory - Tobacco Use Smoking Status *Q: Never Smoker Used Tobacco, but Quit: Yes Month/Year Tobacco Last Used: may Second Hand Smoke Exposure: No - Caffeine Use Caffeine Use: Reports: Soda - Alcohol Use Days Per Week of Alcohol Use: 0 - Recreational Drug Use Recreational Drug Use: No ED ROS GENERAL - Review of Systems Review Of Systems: See Below Constitutional: Denies: Fever, Chills HEENT: Reports: No Symptoms Respiratory: Denies: Shortness of Breath Cardiovascular: Denies: Chest Pain GI/Abdominal: Reports: Nausea, Vomiting. Denies: Abdominal Pain, Diarrhea Musculoskeletal: Reports: No Symptoms Skin: Reports: No Symptoms Neurological: Reports: Headache. Denies: Numbness, Tingling, Trouble Speaking, Weakness - Physical Exam Exam: See Below General Appearance: Alert, Mild Distress Eye Exam: Bilateral Eye: PERRL Nose: Normal Inspection Throat/Mouth: Normal Inspection, Normal Oropharynx Head Exam: Atraumatic. No: Facial Swelling Neck: Supple, Full Range of Motion Respiratory/Chest: No Respiratory Distress, Lungs Clear, Normal Breath Sounds Cardiovascular: Regular Rate, Rhythm GI/Abdominal: Soft, Non-Tender Neuro Exam (Abbreviated): Alert, Oriented, No Motor/Sensory Deficits, Other ( Finger to nose testing normal) Course - Vital Signs Last Recorded V/S: Last Vital Signs Temp 97.3 F 01/03/18 07:24 Pulse 73 01/03/18 07:24 Resp 16 01/03/18 07:24 BP 155/71 H 01/03/18 07:24 Pulse Ox 95 01/03/18 07:24 - Orders/Labs/Meds Orders: Active Orders 24 hr Category Date Time Status Peripheral IV Care [RC] . DIRECTED Care 01/03/18 07:49 Active Peripheral IV Insertion Adult [OM.PC] Stat Oth 01/03/18 07:47 Ordered Meds: Medications Discontinued Medications Generic Name Dose Route Start Last Admin Trade Name Freq PRN Reason Stop Dose Admin Diphenhydramine HCl 25 mg 01/03/18 07:47 01/03/18 08:11 Benadryl IVPUSH 01/03/18 07:48 25 mg ONETIME ONE Administration Sodium Chloride 1,000 mls @ 999 mls/hr 01/03/18 08:00 01/03/18 08:11 Normal Saline IV 999 mls/hr ONETIME SANDRO Administration Ketorolac Tromethamine 30 mg 01/03/18 08:00 01/03/18 08:11 Toradol IVPUSH 30 mg ONETIME SANDRO Administration Metoclopramide HCl 10 mg 01/03/18 07:47 01/03/18 08:10 Reglan IVPUSH 01/03/18 07:48 10 mg ONETIME ONE Administration Sodium Chloride 10 ml 01/03/18 07:47 01/03/18 08:10 Saline Flush FLUSH 10 ml ASDIRECTED PRN Administration Keep Vein Open - Re-Assessments/Exams Free Text/Narrative Re-Assessment/Exam: 01/03/18 11:26 Headache completely gone at time of discharge. Departure - Departure Time of Disposition: 09:01 Disposition: Home, Self-Care 01 Condition: Fair Clinical Impression: Migraine - Discharge Information Instructions: Migraine Headache, [id number] Referrals: Marylin Sharma, SENIOR EXECUTIVE COMPENSATION ANALYST [Primary Care Provider] - Forms: ED Department Discharge Additional Instructions: Rest, continue Tylenol today if needed for any further headache. You also may take a dose of Benadryl 25 mg oral if needed for any further headache. Follow- up clinic as needed, return to ED as needed if symptoms worsening in any way. - My Orders Last 24 Hours: My Active Orders 01/03/18 07:47 Peripheral IV Insertion Adult [OM.PC] Stat 01/03/18 07:49 Peripheral IV Care [RC] . DIRECTED - Assessment/Plan Last 24 Hours: My Active Orders 01/03/18 07:47 Peripheral IV Insertion Adult [OM.PC] Stat 01/03/18 07:49 Peripheral IV Care [RC] . DIRECTED
== END 2018-01-03 09:25 | disposition home or self-care (01) ==
LOC: JD.ED 07:19
DX: G43.909 Migraine, unspecified, not intractable, without status migrainosus (principal); Z88.8 Allergy status to other drugs, medicaments and biological substances; Z88.0 Allergy status to penicillin; Z88.2 Allergy status to sulfonamides; Z87.891 Personal history of nicotine dependence
CPT/HCPCS: 96361; 96374; 96375; 99284; J1200; J1885; J2765; J7040; J7050

== ENCOUNTER 2018-01-27 13:25 | Emergency (ER) | payer SELFPAY ==
[2018-01-27 13:34] VITALS: BP 177/77
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
[2018-01-27] MEDS ORDERED: Ondansetron 4 MG/2 ML SDV IVPUSH ONE (13:52)
[2018-01-27] MEDS ORDERED: Sodium Chloride 0.9% 1,000 ML IV ONE ×2 (13:52→15:02)
[2018-01-27] MEDS ORDERED: Pantoprazole 40 MG Vial IVPUSH ONE (14:09)
--- NOTE | 2018-01-29 07:56 | CR ---
Abdominal series: Frontal view of the chest was obtained as well as supine and upright views of the abdomen. Comparison: No prior chest x-ray or abdominal x-ray. Mild scoliosis is seen. Heart size and mediastinum are normal. Lungs are clear. Small bowel gas is slightly increased. Several air-fluid levels are seen within small bowel. Slight stool scattered within the colon. Calcifications within the pelvis are seen most likely incidental. No soft tissue abnormality is appreciated. Impression: 1. Slightly prominent small bowel gas with air-fluid levels. Mild gastroenteritis is a possibility. This does not appear to be obstructive at this time. 2. Other incidental findings. Diagnostic code #3
== END 2018-01-27 17:13 | disposition home or self-care (01) ==
LOC: JD.ED 13:25
DX: K29.00 Acute gastritis without bleeding (principal); K59.00 Constipation, unspecified; Z88.8 Allergy status to other drugs, medicaments and biological substances; Z88.0 Allergy status to penicillin; Z88.2 Allergy status to sulfonamides; Z87.891 Personal history of nicotine dependence
CPT/HCPCS: 36415; 74022; 80053; 81001; 83735; 85025; 86677; 96361; 96374; 96375; 99284; C9113; J2405; J7040

== ENCOUNTER 2018-11-26 17:17 | Emergency (ER) | payer SELFPAY ==
[2018-11-26 17:25] VITALS: BP 159/69
--- NOTE | 2018-11-26 18:10 | EDM.PDOC ---
ED HPI GENERAL MEDICAL PROBLEM - General Chief Complaint: Lower Extremity Injury/Pain Stated Complaint: SPRAIN RIGHT ANKLE Time Seen by Provider: 11/26/18 17:38 Source of Information: Reports: Patient History Limitations: Reports: No Limitations - History of Present Illness INITIAL COMMENTS - FREE TEXT/NARRATIVE: 43 yo F comes in today for R lower leg and ankle pain/swelling/redness after slipping while trying to get into her car on Tuesday (5 days ago). She stated she waited to come in bc she needed her to give her a ride. She states she has h/o MS, with right sided weakness> left sided weakness, which caused her to slip, twisting her leg and fall to the ground. She states she did hit her R knee, there is a current abrasion there, but that she currently has no pain there. She denies any F/C, however the leg and ankle has been having increased warmth, erythema, tenderness. Unable to weight bear, but has been doing so for the past 5 days as she has no crutches or anything at home. She has tried over the counter ibuprofen with no relief. She has not tried ice. No other symptoms or complaints at this time. Right Ankle Pain Score (Numeric/FACES): 8 - Related Data Allergies Allergy/AdvReac Type Severity Reaction Status Date / Time chlorhexidine Allergy Rash Verified 11/26/18 17:23 ketoconazole Allergy Rash Verified 11/26/18 17:23 Penicillins AdvReac Vomiting Verified 11/26/18 17:23 sulfamethoxazole AdvReac Vomiting Verified 11/26/18 17:23 [From Bactrim] trimethoprim [From Bactrim] AdvReac Vomiting Verified 11/26/18 17:23 Home Meds: Home Meds Ondansetron [Zofran ODT] 1 tab PO Q8H PRN #10 tab.dis 07/26/18 [Rx] Clindamycin HCl 300 mg PO TID 7 Days #21 capsule 11/26/18 [Rx] Doxycycline [Vibramycin] 100 mg PO BID 7 Days #14 tab 11/26/18 [Rx] Saccharomyces Boulardii [Florastor] 250 mg PO BID 20 Days #40 cap 11/26/18 [Rx] Past Medical History HEENT History: Reports: Impaired Vision Other HEENT History: wears glasses Gastrointestinal History: Reports: GERD Genitourinary History: Reports: Renal Calculus Musculoskeletal History: Reports: Back Pain, Chronic Neurological History: Reports: Migraines, MS Psychiatric History: Reports: Anxiety, Depression - Infectious Disease History Infectious Disease History: Reports: Chicken Pox - Past Surgical History HEENT Surgical History: Reports: Oral Surgery, Tonsillectomy GI Surgical History: Reports: Appendectomy Neurological Surgical History: Reports: Laminectomy Social & Family History - Family History Family Medical History: Noncontributory - Tobacco Use Smoking Status *Q: Former Smoker Used Tobacco, but Quit: Yes Month/Year Tobacco Last Used: 1998 - Caffeine Use Caffeine Use: Reports: Soda - Recreational Drug Use Recreational Drug Use: No - Living Situation & Occupation Living situation: Reports: , with Spouse 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 ED EXAM, GENERAL - Physical Exam Exam: See Below Exam Limited By: No Limitations General Appearance: Alert Eye Exam: Bilateral Eye: EOMI, PERRL Head: Atraumatic, Normocephalic Neck: Normal Inspection, Supple, Non-Tender, Full Range of Motion Respiratory/Chest: No Respiratory Distress, Lungs Clear, Normal Breath Sounds, No Accessory Muscle Use, Chest Non-Tender Cardiovascular: Normal Peripheral Pulses, Regular Rate, Rhythm, No Edema, No Gallop, No JVD, No Murmur, No Rub Peripheral Pulses: 1+: Posterior Tibial (R), Dorsalis Pedis (R), 2+: Posterior Tibial (L), Dorsalis Pedis (L) GI/Abdominal: Normal Bowel Sounds, Soft, Non-Tender, No Organomegaly, No Distention, No Abnormal Bruit, No Mass Back Exam: Normal Inspection Extremities: Normal Inspection, Non-Tender, No Pedal Edema, Normal Capillary Refill, Joint Swelling (R ankle), Leg Pain (Right leg), Limited Range of Motion (R ankle), Increased Warmth (R leg and ankle), Redness (Right anterior leg and ankle) Neurological: Alert, Oriented, CN II-XII Intact. No: Normal Gait Skin Exam: Warm, Dry, Erythema (R leg and ankle), Increased Warmth (R leg and ankle), Wound/Incision (abrasion on R anterior leg, near knee) Course - Vital Signs Last Recorded V/S: Last Vital Signs Temp 98 F 11/26/18 17:23 Pulse 82 11/26/18 17:23 Resp 18 11/26/18 17:23 BP 159/69 H 11/26/18 17:23 Pulse Ox 99 11/26/18 17:23 - Orders/Labs/Meds Orders: Active Orders 24 hr Category Date Time Status Ankle Min 3V Rt [CR] Stat Exams 11/26/18 18:02 Taken Tibia Fibula Rt [CR] Stat Exams 11/26/18 18:02 Taken CULTURE BLOOD [BC] Stat Lab 11/26/18 18:25 Received CULTURE BLOOD [BC] Stat Lab 11/26/18 18:40 Received Saccharomyces Boulardii [Florastor] Med 11/26/18 21:00 Ordered 250 mg PO BID cefTRIAXone [Rocephin] 2 gm Med 11/26/18 19:00 Active Sodium Chloride 0.9% [Normal Saline] 100 ml IV Q24H Blood Culture x2 Reflex Set [OM.PC] Stat Oth 11/26/18 18:02 Ordered DME for Discharge [COMM] Routine Oth 11/26/18 20:31 Ordered DME for Discharge [COMM] Routine Oth 11/26/18 20:42 Ordered Medication Orders Ceftriaxone Sodium 2 gm/ (Sodium Chloride) 100 mls @ 200 mls/hr IV Q24H SANRDO Last Admin: 11/26/18 20:11 Dose: 200 mls/hr Saccharomyces Boulardii (Florastor) 250 mg PO BID [facility] Labs: Laboratory Tests 11/26/18 11/26/18 11/26/18 Range/Units 18:40 18:40 18:40 WBC 9.90 (3.98-10.04) K/mm3 RBC 4.67 (3.98-5.22) M/mm3 Hgb 13.2 (11.2-15.7) gm/L Hct 40.9 (34.1-44.9) % MCV 87.6 (79.4-94.8) fl MCH 28.3 (25.6-32.2) pg MCHC 32.3 (32.2-35.5) g/dl RDW Std Deviation 41.4 (36.4-46.3) fL Plt Count 314 (182-369) K/mm3 MPV 10.6 (9.4-12.3) fl Neut % (Auto) 61.2 (34.0-71.1) % Lymph % (Auto) 19.8 (19.3-51.7) % [place] % (Auto) 15.4 H (4.7-12.5) % Eos % (Auto) 1.9 (0.7-5.8) Baso % (Auto) 0.8 (0.1-1.2) % Neut # (Auto) 6.06 (1.56-6.13) K/mm3 Lymph # (Auto) 1.96 (1.18-3.74) K/mm3 [place] # (Auto) 1.52 H (0.24-0.36) K/mm3 Eos # (Auto) 0.19 (0.04-0.36) K/mm3 Baso # (Auto) 0.08 (0.01-0.08) K/mm3 Manual Slide Review Normal smear Sodium 137 (136-145) mEq/L Potassium 3.8 (3.5-5.1) mEq/L Chloride 102 (98-107) mEq/L Carbon Dioxide 27 (21-32) mEq/L Anion Gap 11.8 (5-15) BUN 13 (7-18) mg/dL Creatinine 0.7 (0.55-1.02) mg/dL Est Cr Clr Drug Dosing 103.46 mL/min Estimated GFR (MDRD) > 60 (>60) mL/min BUN/Creatinine Ratio 18.6 H (14-18) Glucose 100 (74-106) mg/dL Lactic Acid 1.0 (0.4-2.0) mmol/L Calcium 8.6 (8.5-10.1) mg/dL Total Bilirubin 0.3 (0.2-1.0) mg/dL AST 13 L (15-37) U/L ALT 28 (14-59) U/L Alkaline Phosphatase 114 (46-116) U/L C-Reactive Protein 0.9 (<1.0) mg/dL Total Protein 7.1 (6.4-8.2) g/dl Albumin 3.1 L (3.4-5.0) g/dl Globulin 4.0 gm/dL Albumin/Globulin Ratio 0.8 L (1-2) Meds: Medications Generic Name Dose Route Start Last Admin Trade Name Freq PRN Reason Stop Dose Admin Ceftriaxone Sodium 2 gm/ 100 mls @ 200 mls/hr 11/26/18 19:00 11/26/18 20:11 Sodium Chloride IV 200 mls/hr Q24H SANDRO Administration Saccharomyces Boulardii 250 mg 11/26/18 21:00 Florastor PO BID SANDRO Discontinued Medications Generic Name Dose Route Start Last Admin Trade Name Freq PRN Reason Stop Dose Admin Ceftriaxone Sodium 2 gm 11/26/18 18:15 11/26/18 19:25 Rocephin IVPUSH Not Given Q24H SANDRO Ceftriaxone Sodium Confirm 11/26/18 18:22 11/26/18 19:25 Rocephin Administered 11/26/18 18:23 Not Given Dose 2 gm IV .STK-MED ONE Diphenhydramine HCl 25 mg 11/26/18 20:03 11/26/18 20:12 Benadryl PO 11/26/18 20:04 25 mg ONETIME ONE Administration Doxycycline Hyclate 100 mg/ 100 mls @ 100 mls/hr 11/26/18 18:12 11/26/18 18: 48 Sodium Chloride IV 11/26/18 19:11 100 mls/hr ONETIME ONE Administration Sodium Chloride Confirm 11/26/18 18:22 11/26/18 19:25 Normal Saline Administered 11/26/18 18:23 Not Given Dose 100 mls @ as directed .ROUTE .STK-MED ONE Ketorolac Tromethamine 30 mg 11/26/18 18:48 11/26/18 20:09 Toradol IVPUSH 11/26/18 18:49 30 mg ONETIME ONE Administration - Re-Assessments/Exams Free Text/Narrative Re-Assessment/Exam: 11/26/18 18:11 I have ordered CBC, CMP, CRP , Blood cultures x2, Lactic Acid, R Tib/Fib, R 3V ankle Rocephin 2g and Doxy 100 IV 11/26/18 18:13 R Tib/Fib, R 3V ankle reviewed by myself and Dr. Comer- no fracture seen. 11/26/18 19:21 CBC WNL, LA 1 CMP, CRP pending 11/26/18 19:46 CMP and CRP WNL 11/26/18 20:32 Pt has received her IV antibiotic, 1/2 bags. She is having some pain with the infusion site and apparently is allergic to the chlorhexidine used to cleanse the skin. Will also give 25mg Benadryl. Departure - Departure Time of Disposition: 20:00 Disposition: Home, Self-Care 01 Condition: Good Clinical Impression: Sprained ankle, Cellulitis of right lower leg - Discharge Information *PRESCRIPTION DRUG MONITORING PROGRAM REVIEWED*: Not Applicable *COPY OF PRESCRIPTION DRUG MONITORING REPORT IN PATIENT JUAN CARLOS: Not Applicable Prescriptions: Clindamycin HCl 300 mg PO TID 7 Days #21 capsule Doxycycline [Vibramycin] 100 mg PO BID 7 Days #14 tab Saccharomyces Boulardii [Florastor] 250 mg PO BID 20 Days #40 cap Instructions: Muscle Strain, [id number], Cellulitis, Adult, [id number], Walking Boot, Adult Referrals: Cristina Recio NP [ED Midlevel Provider] - Forms: ED Department Discharge Additional Instructions: You were seen in the ED today for R leg pain and swelling after injuring it getting into your truck on Tuesday. Xrays did not show any fracture, however you do have symptoms of infection such as redness, swelling and pain (cellulitis ). You were started on IV antibiotics while here and will be sent home with antibiotics for completion of infection treatment. Recommend follow up with primary care doctor in 2-3 days, we have recommended Cristina Recio NP here at [facility]. You can call to make an appointment with her at . Please return to ED if new or worsening symptoms. - My Orders Last 24 Hours: My Active Orders 11/26/18 18:02 Ankle Min 3V Rt [CR] Stat Tibia Fibula Rt [CR] Stat Blood Culture x2 Reflex Set [OM.PC] Stat 11/26/18 18:25 CULTURE BLOOD [BC] Stat 11/26/18 18:40 CULTURE BLOOD [BC] Stat 11/26/18 19:00 cefTRIAXone [Rocephin] 2 gm Sodium Chloride 0.9% [Normal Saline] 100 ml IV Q24H 11/26/18 20:31 DME for Discharge [COMM] Routine 11/26/18 20:42 DME for Discharge [COMM] Routine 11/26/18 21:00 Saccharomyces Boulardii [Florastor] 250 mg PO BID - Assessment/Plan Last 24 Hours: My Active Orders 11/26/18 18:02 Ankle Min 3V Rt [CR] Stat Tibia Fibula Rt [CR] Stat Blood Culture x2 Reflex Set [OM.PC] Stat 11/26/18 18:25 CULTURE BLOOD [BC] Stat 11/26/18 18:40 CULTURE BLOOD [BC] Stat 11/26/18 19:00 cefTRIAXone [Rocephin] 2 gm Sodium Chloride 0.9% [Normal Saline] 100 ml IV Q24H 11/26/18 20:31 DME for Discharge [COMM] Routine 11/26/18 20:42 DME for Discharge [COMM] Routine 11/26/18 21:00 Saccharomyces Boulardii [Florastor] 250 mg PO BID
[2018-11-26] MEDS ORDERED: Doxycycline 100 MG in Sodium Chloride 0.9% 100 ML IV ONE (18:12)
[2018-11-26] MEDS ORDERED: cefTRIAXone 2 GM Vial IVPUSH SCH (18:15)
[2018-11-26] MEDS ORDERED: Sodium Chloride 0.9% 100 ML ONE (18:22)
[2018-11-26] MEDS ORDERED: cefTRIAXone 2 GM AdvVial IV ONE (18:22)
[2018-11-26] MEDS ORDERED: Ketorolac 30 MG/ML SDV IVPUSH ONE (18:48)
[2018-11-26] MEDS ORDERED: cefTRIAXone 2 GM in Sodium Chloride 0.9% 100 ML IV SCH (19:00)
[2018-11-26] MEDS ORDERED: diphenhydrAMINE 25 MG Cap PO ONE (20:03)
[2018-11-26] MEDS ORDERED: Saccharomyces Boulardii (Probiotic) 250 MG Cap PO SCH (21:00)
--- NOTE | 2018-11-27 08:20 | CR ---
Right ankle: Four views of the right ankle were obtained. Comparison: No prior ankle study. Ankle mortise is symmetric. Small plantar spur is noted. Diffuse soft tissue swelling is seen. No acute fracture, dislocation or other bony abnormality is seen. Impression: 1. Soft tissue swelling. Other incidental findings. No acute bony abnormality is identified. Diagnostic code #2
--- NOTE | 2018-11-27 08:30 | CR ---
Right tibia and fibula: AP and lateral views of the right tibia and fibula were obtained. Comparison: No previous tibia or fibula study is available. Small plantar spur is again noted. Soft tissue swelling is noted around the ankle. No acute fracture, dislocation or other bony abnormality is identified. Impression: 1. Soft tissue swelling around the ankle. Incidental plantar spur. 2. Nothing acute is appreciated on right tibia and fibula study. Diagnostic code #2
== END 2018-11-26 21:20 | disposition home or self-care (01) ==
LOC: JD.ED 17:17
DX: S93.401A Sprain of unspecified ligament of right ankle, initial encounter (principal); L03.115 Cellulitis of right lower limb; W01.0XXA Fall on same level from slipping, tripping and stumbling without subsequent striking against object, initial encounter; Z88.8 Allergy status to other drugs, medicaments and biological substances; Z88.0 Allergy status to penicillin; Z88.1 Allergy status to other antibiotic agents; Z88.2 Allergy status to sulfonamides; Z87.891 Personal history of nicotine dependence
CPT/HCPCS: 36415; 73590; 73610; 80053; 83605; 85025; 86140; 87040; 96365; 96367; 96375; 99283; A9270; J0696; J1885; J3490; J7030; 99284

== ENCOUNTER 2018-12-08 16:13 | Observation (INO) | payer OTHER ==
[2018-12-08] MEDS ORDERED: Sodium Chloride 0.9% 1,000 ML IV SCH (17:15)
--- NOTE | 2018-12-08 17:29 | EDM.PDOC ---
ED HPI GENERAL MEDICAL PROBLEM - General Chief Complaint: Lower Extremity Injury/Pain Stated Complaint: SKIN INFECTION Time Seen by Provider: 12/08/18 16:30 Source of Information: Reports: Patient, Provider History Limitations: Reports: No Limitations - History of Present Illness INITIAL COMMENTS - FREE TEXT/NARRATIVE: 43 yo F comes in with at the request of her neurologist for continuing RLE pain, redness, and swelling x 2.5 weeks. She was first seen here in the ED by me about 1.5 weeks ago (11/26/18) and was discharged with Doxycycline and Clindamycin for treatment of Cellulitis as well as a walker to prevent weight bearing. She states she took all medication as prescribed and completed the treatment, but has not completely compliant with non-weight bearing. She was then seen by her neurologist, Dr. Gudino, 2 days ago in [place] and he started her on Zyvox. When he heard she had no improvement, he called the ED to let us know she was coming and told her to come in today for treatment. She states that her symptoms have not gotten worse, but that they have remained the same. She also does complain of F/C, nausea, random sharp shooting pain in the leg 9/ 10 at its worst, chronic numbness/tingling d/t MS. She denies any new neurological deficits, chest pain, SOB, abdominal pain, vomiting, diarrhea, or any other complaints at this time. Original note from 11/26/18: 43 yo F comes in today for R lower leg and ankle pain/swelling/redness after slipping while trying to get into her car on Tuesday (5 days ago). She stated she waited to come in bc she needed her to give her a ride. She states she has h/o MS, with right sided weakness> left sided weakness, which caused her to slip, twisting her leg and fall to the ground. She states she did hit her R knee, there is a current abrasion there, but that she currently has no pain there. She denies any F/C, however the leg and ankle has been having increased warmth, erythema, tenderness. Unable to weight bear, but has been doing so for the past 5 days as she has no crutches or anything at home. She has tried over the counter ibuprofen with no relief. She has not tried ice. No other symptoms or complaints at this time. Xrays did not show any fracture, diagnosed with cellulitis. Gave Rocephin 2g IV while here and was sent home with Clindamycin 300 TID x 7 days and Doxycycline 100 BID x7 days for completion of treatment. Blood cultures negative after 7 days. She does not currently have a PCP. Her neurologist is Dr. Gudino in [place]. She is a Full Code. Right Lower Leg Pain Score (Numeric/FACES): 4 - Related Data Allergies Allergy/AdvReac Type Severity Reaction Status Date / Time chlorhexidine Allergy Rash Verified 12/08/18 16:22 ketoconazole Allergy Rash Verified 12/08/18 16:22 Penicillins AdvReac Vomiting Verified 12/08/18 16:22 sulfamethoxazole AdvReac Vomiting Verified 12/08/18 16:22 [From Bactrim] trimethoprim [From Bactrim] AdvReac Vomiting Verified 12/08/18 16:22 Home Meds: Home Meds Ocrevus. 12/08/18 [History] Saccharomyces Boulardii [Florastor] 250 mg PO BID PRN 12/08/18 [History] Past Medical History HEENT History: Reports: Impaired Vision Other HEENT History: wears glasses Gastrointestinal History: Reports: GERD Genitourinary History: Reports: Renal Calculus Musculoskeletal History: Reports: Back Pain, Chronic Neurological History: Reports: Migraines, MS Psychiatric History: Reports: Anxiety, Depression - Infectious Disease History Infectious Disease History: Reports: Chicken Pox - Past Surgical History HEENT Surgical History: Reports: Oral Surgery, Tonsillectomy GI Surgical History: Reports: Appendectomy Neurological Surgical History: Reports: Laminectomy Social & Family History - Family History Family Medical History: Noncontributory - Tobacco Use Smoking Status *Q: Former Smoker Used Tobacco, but Quit: Yes Month/Year Tobacco Last Used: 1996 - Caffeine Use Caffeine Use: Reports: Soda - Recreational Drug Use Recreational Drug Use: No - Living Situation & Occupation Living situation: Reports: , with Spouse 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) Review of Systems - Review of Systems Review Of Systems: See Below Constitutional: Reports: Chills, Fever Eyes: Reports: No Symptoms Ears: Reports: No Symptoms Nose: Reports: No Symptoms Mouth/Throat: Reports: No Symptoms Respiratory: Reports: No Symptoms Cardiovascular: Reports: No Symptoms GI/Abdominal: Reports: No Symptoms Genitourinary: Reports: No Symptoms Musculoskeletal: Reports: Leg Pain (RLE), Joint Swelling (RLE) Skin: Reports: Bruising (LLE, recently slipped in shower), Erythema (RLE), Wound (healed scar on RLE, just below the knee) Neurological: Reports: Numbness (bilateral lower extremities, chronic d/t MS), Pre-Existing Deficit, Tingling (bilateral lower extremities, chronic d/t MS), Difficulty Walking (bilateral lower extremities, chronic d/t MS), Weakness ( bilateral lower extremities, chronic d/t MS, R>L), Gait Disturbance Psychiatric: Reports: No Symptoms ED EXAM, GENERAL - Physical Exam Exam: See Below Exam Limited By: No Limitations General Appearance: Alert, WD/WN, No Apparent Distress Eye Exam: Bilateral Eye: EOMI, Normal Inspection, PERRL Nose: Normal Inspection, Normal Mucosa, No Blood Throat/Mouth: Normal Inspection, Normal Lips, Normal Teeth, Normal Gums, Normal Oropharynx, Normal Voice, No Airway Compromise Head: Atraumatic, Normocephalic Neck: Normal Inspection, Supple, Non-Tender, Full Range of Motion Respiratory/Chest: No Respiratory Distress, Lungs Clear, Normal Breath Sounds, No Accessory Muscle Use, Chest Non-Tender Cardiovascular: Normal Peripheral Pulses, No Edema, No Gallop, No JVD, No Murmur , No Rub, Tachycardia Peripheral Pulses: 1+: Posterior Tibial (R), Dorsalis Pedis (R), 2+: Posterior Tibial (L), Dorsalis Pedis (L) GI/Abdominal: Normal Bowel Sounds, Soft, Non-Tender, No Organomegaly, No Distention, No Abnormal Bruit, No Mass Back Exam: Normal Inspection Extremities: Normal Range of Motion, Non-Tender, Normal Capillary Refill, Pedal Edema (RLE), Leg Pain (RLE), Limited Range of Motion (RLE), Increased Warmth ( RLE), Redness (RLE). No: Janice's Sign Neurological: Alert, Oriented Psychiatric: Normal Affect, Normal Mood Skin Exam: Warm, Dry, Intact, Normal Color, Erythema (RLE), Increased Warmth ( RLE), Wound/Incision (healed scar RLE just below knee) Course - Vital Signs Last Recorded V/S: Last Vital Signs Temp 99.1 F 12/08/18 16:23 Pulse 90 12/08/18 16:23 Resp 16 12/08/18 16:23 BP 150/78 H 12/08/18 16:23 Pulse Ox 95 12/08/18 16:23 - Orders/Labs/Meds Orders: Active Orders 24 hr Category Date Time Status Ankle Min 3V Rt [CR] Stat Exams 12/08/18 17:53 Taken Tibia Fibula Rt [CR] Stat Exams 12/08/18 17:53 Taken VL Duplex Lwr Ext Veins Ltd Rt [US] Stat Exams 12/08/18 17:14 Taken CULTURE BLOOD [BC] Stat Lab 12/08/18 05:40 Received CULTURE BLOOD [BC] Stat Lab 12/08/18 18:27 Received Sodium Chloride 0.9% [Normal Saline] 1,000 ml Med 12/08/18 17:15 Active IV ASDIRECTED Vancomycin 2 gm Med 12/08/18 18:15 Active Sodium Chloride 0.9% [Normal Saline] 500 ml IV ONETIME Blood Culture x2 Reflex Set [OM.PC] Stat Oth 12/08/18 17:13 Ordered Medication Orders Sodium Chloride (Normal Saline) 1,000 mls @ 999 mls/hr IV ASDIRECTED SANDRO Last Admin: 12/08/18 18:33 Dose: 999 mls/hr Vancomycin HCl 2 gm/ Sodium (Chloride) 500 mls @ 250 mls/hr IV ONETIME ONE Stop: 12/08/18 20:14 Last Admin: 12/08/18 18:34 Dose: 250 mls/hr Labs: Laboratory Tests 12/08/18 12/08/18 12/08/18 Range/Units 17:40 17:40 17:40 WBC 11.81 H (3.98-10.04) K/mm3 RBC 4.82 (3.98-5.22) M/mm3 Hgb 13.8 (11.2-15.7) gm/L Hct 41.7 (34.1-44.9) % MCV 86.5 (79.4-94.8) fl MCH 28.6 (25.6-32.2) pg MCHC 33.1 (32.2-35.5) g/dl RDW Std Deviation 41.0 (36.4-46.3) fL Plt Count 387 H (182-369) K/mm3 MPV 10.9 (9.4-12.3) fl Neut % (Auto) 64.8 (34.0-71.1) % Lymph % (Auto) 16.8 L (19.3-51.7) % [place] % (Auto) 14.6 H (4.7-12.5) % Eos % (Auto) 2.4 (0.7-5.8) Baso % (Auto) 0.8 (0.1-1.2) % Neut # (Auto) 7.66 H (1.56-6.13) K/mm3 Lymph # (Auto) 1.98 (1.18-3.74) K/mm3 [place] # (Auto) 1.72 H (0.24-0.36) K/mm3 Eos # (Auto) 0.28 (0.04-0.36) K/mm3 Baso # (Auto) 0.10 H (0.01-0.08) K/mm3 Manual Slide Review Normal smear PT 11.0 (9.5-12.1) SECONDS INR 1.01 D-Dimer, Quantitative 0.44 (0.19-0.50) mg/L Sodium 141 (136-145) mEq/L Potassium 4.3 (3.5-5.1) mEq/L Chloride 105 (98-107) mEq/L Carbon Dioxide 28 (21-32) mEq/L Anion Gap 12.3 (5-15) BUN 12 (7-18) mg/dL Creatinine 0.8 (0.55-1.02) mg/dL Est Cr Clr Drug Dosing 84.01 mL/min Estimated GFR (MDRD) > 60 (>60) mL/min BUN/Creatinine Ratio 15.0 (14-18) Glucose 104 (74-106) mg/dL Lactic Acid (0.4-2.0) mmol/L Calcium 9.1 (8.5-10.1) mg/dL Total Bilirubin 0.4 (0.2-1.0) mg/dL AST 14 L (15-37) U/L ALT 25 (14-59) U/L Alkaline Phosphatase 127 H (46-116) U/L C-Reactive Protein 0.9 (<1.0) mg/dL Total Protein 7.6 (6.4-8.2) g/dl Albumin 3.8 (3.4-5.0) g/dl Globulin 3.8 gm/dL Albumin/Globulin Ratio 1.0 (1-2) 12/08/18 Range/Units 17:40 WBC (3.98-10.04) K/mm3 RBC (3.98-5.22) M/mm3 Hgb (11.2-15.7) gm/L Hct (34.1-44.9) % MCV (79.4-94.8) fl MCH (25.6-32.2) pg MCHC (32.2-35.5) g/dl RDW Std Deviation (36.4-46.3) fL Plt Count (182-369) K/mm3 MPV (9.4-12.3) fl Neut % (Auto) (34.0-71.1) % Lymph % (Auto) (19.3-51.7) % [place] % (Auto) (4.7-12.5) % Eos % (Auto) (0.7-5.8) Baso % (Auto) (0.1-1.2) % Neut # (Auto) (1.56-6.13) K/mm3 Lymph # (Auto) (1.18-3.74) K/mm3 [place] # (Auto) (0.24-0.36) K/mm3 Eos # (Auto) (0.04-0.36) K/mm3 Baso # (Auto) (0.01-0.08) K/mm3 Manual Slide Review PT (9.5-12.1) SECONDS INR D-Dimer, Quantitative (0.19-0.50) mg/L Sodium (136-145) mEq/L Potassium (3.5-5.1) mEq/L Chloride (98-107) mEq/L Carbon Dioxide (21-32) mEq/L Anion Gap (5-15) BUN (7-18) mg/dL Creatinine (0.55-1.02) mg/dL Est Cr Clr Drug Dosing mL/min Estimated GFR (MDRD) (>60) mL/min BUN/Creatinine Ratio (14-18) Glucose (74-106) mg/dL Lactic Acid 1.1 (0.4-2.0) mmol/L Calcium (8.5-10.1) mg/dL Total Bilirubin (0.2-1.0) mg/dL AST (15-37) U/L ALT (14-59) U/L Alkaline Phosphatase (46-116) U/L C-Reactive Protein (<1.0) mg/dL Total Protein (6.4-8.2) g/dl Albumin (3.4-5.0) g/dl Globulin gm/dL Albumin/Globulin Ratio (1-2) Meds: Medications Generic Name Dose Route Start Last Admin Trade Name Freq PRN Reason Stop Dose Admin Sodium Chloride 1,000 mls @ 999 mls/hr 12/08/18 17:15 12/08/18 18:33 Normal Saline IV 999 mls/hr ASDIRECTED SANDRO Administration Vancomycin HCl 2 gm/ Sodium 500 mls @ 250 mls/hr 12/08/18 18:15 12/08/18 18: 34 Chloride IV 12/08/18 20:14 250 mls/hr ONETIME ONE Administration Discontinued Medications Generic Name Dose Route Start Last Admin Trade Name Freq PRN Reason Stop Dose Admin Vancomycin HCl 2 gm/ Sodium 250 mls @ 250 mls/hr 12/08/18 18:02 Chloride IV 12/08/18 19:01 ONETIME ONE Sodium Chloride Confirm 12/08/18 18:07 12/08/18 18:36 Normal Saline Administered 12/08/18 18:08 Not Given Dose 500 mls @ as directed .ROUTE .[facility] - Re-Assessments/Exams Free Text/Narrative Re-Assessment/Exam: 12/08/18 17:13 I have ordered CBC, CMP, CRP, D-Dimer, Lactic Acid, Blood Cultures Also ordered D-Dimer, Doppler U/S, Tib/Fib and R ankle 3V Started on NS IVF, Vancomycin 2g 12/08/18 18:30 CBC shows WBC 11.81, CMP WNL Lactic Acid 1.0 CRP 0.9 12/08/18 18:32 Tib/Fib and R ankle 3V reviewed by Dr. Burrell and myself. No acute abnormalities appreciated. D-Dimer and Doppler U/S pending 12/08/18 19:06 Radiology has reported that Doppler U/S negative. D-dimer negative at 0.44. 12/08/18 19:08 I have talked with Dr. Chauhan about admission of the patient for IV antibiotics. He has accepted the patient. He requests she be started on Vancomycin and Zosyn. 12/08/18 19:17 Departure - Departure Time of Disposition: 19:10 Disposition: Refer to Observation Condition: Fair Clinical Impression: Cellulitis, leg - Discharge Information *PRESCRIPTION DRUG MONITORING PROGRAM REVIEWED*: Not Applicable *COPY OF PRESCRIPTION DRUG MONITORING REPORT IN PATIENT JUAN CARLOS: Not Applicable Instructions: Cellulitis, Adult, [id number] Referrals: PCP,None [Primary Care Provider] - Forms: ED Department Discharge - My Orders Last 24 Hours: My Active Orders 12/08/18 05:40 CULTURE BLOOD [BC] Stat 12/08/18 17:13 Blood Culture x2 Reflex Set [OM.PC] Stat 12/08/18 17:14 VL Duplex Lwr Ext Veins Ltd Rt [US] Stat 12/08/18 17:15 Sodium Chloride 0.9% [Normal Saline] 1,000 ml IV ASDIRECTED 12/08/18 17:53 Ankle Min 3V Rt [CR] Stat Tibia Fibula Rt [CR] Stat 12/08/18 18:15 Vancomycin 2 gm Sodium Chloride 0.9% [Normal Saline] 500 ml IV ONETIME 12/08/18 18:27 CULTURE BLOOD [BC] Stat - Assessment/Plan Last 24 Hours: My Active Orders 12/08/18 05:40 CULTURE BLOOD [BC] Stat 12/08/18 17:13 Blood Culture x2 Reflex Set [OM.PC] Stat 12/08/18 17:14 VL Duplex Lwr Ext Veins Ltd Rt [US] Stat 12/08/18 17:15 Sodium Chloride 0.9% [Normal Saline] 1,000 ml IV ASDIRECTED 12/08/18 17:53 Ankle Min 3V Rt [CR] Stat Tibia Fibula Rt [CR] Stat 12/08/18 18:15 Vancomycin 2 gm Sodium Chloride 0.9% [Normal Saline] 500 ml IV ONETIME 12/08/18 18:27 CULTURE BLOOD [BC] Stat
[2018-12-08] MEDS ORDERED: Sodium Chloride 0.9% 500 ML ONE (18:07)
[2018-12-08] MEDS ORDERED: Vancomycin 2 GM in Sodium Chloride 0.9% 500 ML IV ONE (18:15)
--- NOTE | 2018-12-08 19:22 | US ---
Right lower extremity deep venous ultrasound: Duplex and color flow imaging was obtained of the right common femoral, proximal greater saphenous, superficial femoral, popliteal, posterior tibial and peroneal veins. Left common femoral vein was also evaluated. Findings: Mild subcutaneous edema is noted within the right anterior calf. Deep veins show normal phasic flow, augmentation and compression. Impression: 1. Mild subcutaneous edema within the right anterior calf. 2. No evidence of deep venous thrombosis within the right lower extremity or within the left common femoral vein. Diagnostic code #2
[2018-12-08] MEDS ORDERED: LORazepam 2 MG/ML SDV IVPUSH PRN (19:54)
[2018-12-08] MEDS ORDERED: Metoprolol Tartrate 5 MG/5 ML SDV IVPUSH PRN (19:54)
[2018-12-08] MEDS ORDERED: Acetaminophen/HYDROcodone 325-5 MG Tab PO PRN (19:56)
[2018-12-08] MEDS ORDERED: Temazepam 7.5 MG Cap PO PRN (19:58)
[2018-12-08] MEDS ORDERED: Bisacodyl 5 MG Tab PO PRN (19:58)
[2018-12-08] MEDS ORDERED: Albuterol/Ipratropium 3.0-0.5 MG/3 ML Neb Soln NEB PRN (19:58)
[2018-12-08] MEDS ORDERED: LORazepam 2 MG/ML SDV IV PRN (19:58)
[2018-12-08] MEDS ORDERED: HYDROmorphone 0.5 MG/0.5 ML Syringe IVPUSH PRN (19:58)
[2018-12-08] MEDS ORDERED: Docusate Sodium 100 MG Cap PO PRN (19:58)
[2018-12-08] MEDS ORDERED: Ondansetron 4 MG/2 ML SDV IV PRN (19:58)
[2018-12-08] MEDS ORDERED: Famotidine 20 MG/2 ML SDV IVPUSH ONE (21:10)
[2018-12-08] MEDS: Dexamethasone 4 MG/ML SDV IVPUSH SCH (21:39)
[2018-12-08] MEDS: Piperacillin/Tazobactam 4.5 GM in Sodium Chloride 0.9% 100 ML IV SCH (21:48)
[2018-12-08] MEDS: hydrALAZINE 20 MG/ML SDV IVPUSH PRN (21:56)
[2018-12-08] MEDS: Acetaminophen 325 MG Tab PO PRN (22:03)
--- NOTE | 2018-12-08 22:13 | PCM.SN ---
- Free Text/Narrative Note: Patient briefly seen and examined at bedside. She complaints of itching and redness primarily on her neck and scalp. She has taken 2 pills of OTC Claritin ( [employer] brand) seen on her room table. The rest of her body appears within normal limits. Her left anterior rmoero has ecchymosis from a recent fall. There is a superficial skin changes on her right romero that is mildly erythematous, warn to the touch, no edema and or skin break. Also noted a tender-thickened area below her knee. The spot is non fluctuant and no obvious signs of abscess or carbuncle. She is non diabetic. Patient has recently received treatment with oral antibiotic for her cellulitis but w/o much improvement. She is currently on IV Vancomycin and Zosyn. Her duplex u/s shows no blood clot but edema. At this point, I felt this is not a true allergic reaction. Her IV access arm would have been the first area to show some signs of skin reaction but non and the rest of her body are clear. However given that she has hypersensitivity to various drugs as noted on her allergy list, it might be best to prevent or minimize her symptoms. She will receive IV steroid as well as H2B and we will slow the infusion rate of her antibiotic. She already got H1B through her Claritin. Informed charge nurse to closely monitor for worsening of her symptoms.
[2018-12-09] MEDS ORDERED: Vancomycin 1 GM, Vancomycin 250 MG in Sodium Chloride 0.9% 250 ML IV SCH (02:00)
[2018-12-09] MEDS: Piperacillin/Tazobactam 4.5 GM in Sodium Chloride 0.9% 100 ML IV SCH ×3 (04:00→19:30)
--- NOTE | 2018-12-09 08:13 | PCM.HP ---
H&P History of Present Illness - General Date of Service: 12/09/18 Admit Problem/Dx: Admission Diagnosis/Problem Admission Diagnosis/Problem Cellulitis of right lower leg Source of Information: Patient, Family, Old Records, Provider, RN Notes Reviewed History Limitations: Reports: No Limitations - History of Present Illness Initial Comments - Free Text/Narative: This is a 43 yo white female with past medical hx/o Impaired Vision, GERD, Back Pain, MS, Migraines, Anxiety, Depression, Hx/o Renal Stones, Peripheral Neuropathy and Class II Obesity who comes in at the request of her neurologist for continuing RLE pain associated with redness and swelling for about 2.5 weeks now after slipping while trying to get into her car. She was initially seen in ED here in [place] and was treated with Doxy and Clinda. She states she completed both medications. Then she was started on Zyvox about 2 days ago by her neurologist due to lingering symptoms. She admits to chronic numbness or tingling but no other neurological deficits. She also reports having fever and chills. Her initial work up in ED shows a CBC remarkable for WBC of 11.81, Platelet # of 387, Lymphocyte of 16.8%, Monocyte of 14.6%, Neutrophil # of 7.66, Monocyte # of 1.72 and Basophil # of 0.10. Her coagulation studies are within normal limits. Her initial chemistry was remarkable for AST of 14, and Alk Phos of 127. Her screening is negative. Her ankle as well as tibia and fibula x-ray report reads no acute bony abnormality are identified. Her peripheral U/S report reads mild subcutaneous edema within the right anterior calf. No evidence of deep vein thrombosis within the right lower extremity or within the left common femoral vein. Patient was admitted last night for treatment of continuing right leg cellulitis. Right Lower Leg Pain Score (Numeric/FACES): 0 - Related Data Allergies/Adverse Reactions: Allergies Allergy/AdvReac Type Severity Reaction Status Date / Time chlorhexidine Allergy Rash Verified 12/08/18 22:50 ketoconazole Allergy Rash Verified 12/08/18 22:50 Penicillins AdvReac Vomiting Verified 12/08/18 22:50 sulfamethoxazole AdvReac Vomiting Verified 12/08/18 22:50 [From Bactrim] trimethoprim [From Bactrim] AdvReac Vomiting Verified 12/08/18 22:50 Home Medications: Home Meds Acetaminophen/HYDROcodone [Nallen 325-5 MG] 1 tab PO BEDTIME PRN 12/08/18 [ History] Famotidine 0 mg PO BEDTIME 12/08/18 [History] Loratadine [Allergy Relief] 10 mg PO DAILY 12/08/18 [History] Past Medical History HEENT History: Reports: Hard of Hearing, Impaired Vision Other HEENT History: wears glasses, can't hear out of right ear Gastrointestinal History: Reports: GERD Genitourinary History: Reports: Renal Calculus, UTI, Recurrent Musculoskeletal History: Reports: Back Pain, Chronic Neurological History: Reports: Concussion, Migraines, MS Psychiatric History: Reports: Anxiety, Depression, Panic Attack, PTSD Endocrine/Metabolic History: Reports: Obesity/BMI 30+ Dermatologic History: Reports: Cellulitis, Other (See Below) Other Dermatologic History: 12/08/18 cellulitis right leg - Infectious Disease History Infectious Disease History: Reports: Chicken Pox, Influenza - Past Surgical History HEENT Surgical History: Reports: Oral Surgery, Tonsillectomy, Other (See Below) Other HEENT Surgeries/Procedures: dog bit to upper lip, plastic surgery to repair GI Surgical History: Reports: Appendectomy Female Surgical History: Reports: None Endocrine Surgical History: Reports: None Neurological Surgical History: Reports: Laminectomy Musculoskeletal Surgical History: Reports: None Dermatological Surgical History: Reports: None Social & Family History - Family History Family Medical History: Noncontributory - Tobacco Use Smoking Status *Q: Former Smoker Used Tobacco, but Quit: No Month/Year Tobacco Last Used: 1996 Second Hand Smoke Exposure: No - Caffeine Use Caffeine Use: Reports: Soda Other Caffeine Use: one can mellow yellow a day - Recreational Drug Use Recreational Drug Use: No - Living Situation & Occupation Living situation: Reports: , with Spouse 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 Denies: Malaise, Weakness, Fatigue HEENT: Reports: No Symptoms Pulmonary: Reports: No Symptoms Cardiovascular: Reports: No Symptoms Gastrointestinal: Denies: Abdominal Pain, Nausea, Vomiting Genitourinary: Reports: No Symptoms Musculoskeletal: Reports: Leg Pain Skin: Reports: Bruising, Erythema, Change in Color, Lesions. Denies: Cyanosis, Jaundice, Mottled, Pallor, Pruritis, Burn(s), Lumps, Urticaria Psychiatric: Denies: Confusion, Mood Lability, Agitation, Hallucinations Neurological: Reports: Numbness, Pre-Existing Deficit, Tingling, Gait Disturbance. Denies: Confusion, Dizziness, Difficulty Walking, Weakness Hematologic/Lymphatic: Reports: No Symptoms Immunologic: Reports: No Symptoms Exam - Exam Exam: See Below - Vital Signs Vital Signs: Last Vital Signs Temp 37.1 C 12/09/18 07:31 Pulse 95 12/09/18 07:31 Resp 16 12/09/18 07:31 BP 126/70 12/09/18 07:31 Pulse Ox 98 12/09/18 07:31 Weight: 106.549 kg - Exam General: Alert, Oriented, Cooperative HEENT: Conjunctiva Clear, EACs Clear, EOMI, Hearing Intact, Mucosa Moist & Matthews , Nares Patent, Normal Nasal Septum, Posterior Pharynx Clear, Pupils Equal, Pupils Reactive Neck: Supple, Trachea Midline Lungs: Clear to Auscultation, Normal Respiratory Effort Cardiovascular: Regular Rate, Regular Rhythm GI/Abdominal Exam: Normal Bowel Sounds, Soft, No Distention, No Abnormal Bruit, No Mass (Female) Exam: Deferred Rectal (Female) Exam: Deferred Back Exam: Normal Inspection, Decreased Range of Motion Extremities: Normal Range of Motion, Non-Tender, No Pedal Edema, Normal Capillary Refill, Redness (mild at the right romero) Peripheral Pulses: 3+: Posterior Tibial (R), Dorsalis Pedis (L), Dorsalis Pedis (R) Skin: Warm, Dry, Intact, Ecchymosis (left romero) Skin Alteration Location (Drawings Not To Scale): 1 - ecchymosis 2 - tender-thickened area 3 - erythema - Patient Data Lab Results Last 24 hrs: Laboratory Results - last 24 hr 12/08/18 12/08/18 12/08/18 Range/Units 17:40 17:40 17:40 WBC 11.81 H (3.98-10.04) K/mm3 RBC 4.82 (3.98-5.22) M/mm3 Hgb 13.8 (11.2-15.7) gm/L Hct 41.7 (34.1-44.9) % MCV 86.5 (79.4-94.8) fl MCH 28.6 (25.6-32.2) pg MCHC 33.1 (32.2-35.5) g/dl RDW Std Deviation 41.0 (36.4-46.3) fL Plt Count 387 H (182-369) K/mm3 MPV 10.9 (9.4-12.3) fl Neut % (Auto) 64.8 (34.0-71.1) % Lymph % (Auto) 16.8 L (19.3-51.7) % [place] % (Auto) 14.6 H (4.7-12.5) % Eos % (Auto) 2.4 (0.7-5.8) Baso % (Auto) 0.8 (0.1-1.2) % Neut # (Auto) 7.66 H (1.56-6.13) K/mm3 Lymph # (Auto) 1.98 (1.18-3.74) K/mm3 [place] # (Auto) 1.72 H (0.24-0.36) K/mm3 Eos # (Auto) 0.28 (0.04-0.36) K/mm3 Baso # (Auto) 0.10 H (0.01-0.08) K/mm3 Manual Slide Review Normal smear PT 11.0 (9.5-12.1) SECONDS INR 1.01 D-Dimer, Quantitative 0.44 (0.19-0.50) mg/L Sodium 141 (136-145) mEq/L Potassium 4.3 (3.5-5.1) mEq/L Chloride 105 (98-107) mEq/L Carbon Dioxide 28 (21-32) mEq/L Anion Gap 12.3 (5-15) BUN 12 (7-18) mg/dL Creatinine 0.8 (0.55-1.02) mg/dL Est Cr Clr Drug Dosing 84.01 mL/min Estimated GFR (MDRD) > 60 (>60) mL/min BUN/Creatinine Ratio 15.0 (14-18) Glucose 104 (74-106) mg/dL Lactic Acid (0.4-2.0) mmol/L Calcium 9.1 (8.5-10.1) mg/dL Magnesium (1.8-2.4) mg/dl Total Bilirubin 0.4 (0.2-1.0) mg/dL AST 14 L (15-37) U/L ALT 25 (14-59) U/L Alkaline Phosphatase 127 H (46-116) U/L C-Reactive Protein 0.9 (<1.0) mg/dL Total Protein 7.6 (6.4-8.2) g/dl Albumin 3.8 (3.4-5.0) g/dl Globulin 3.8 gm/dL Albumin/Globulin Ratio 1.0 (1-2) 12/08/18 12/09/18 12/09/18 Range/Units 17:40 05:12 05:12 WBC 16.70 H (3.98-10.04) K/mm3 RBC 5.07 (3.98-5.22) M/mm3 Hgb 14.4 (11.2-15.7) gm/L Hct 43.7 (34.1-44.9) % MCV 86.2 (79.4-94.8) fl MCH 28.4 (25.6-32.2) pg MCHC 33.0 (32.2-35.5) g/dl RDW Std Deviation 41.7 (36.4-46.3) fL Plt Count 431 H (182-369) K/mm3 MPV 11.4 (9.4-12.3) fl Neut % (Auto) 92.9 H (34.0-71.1) % Lymph % (Auto) 3.9 L (19.3-51.7) % [place] % (Auto) 2.6 L (4.7-12.5) % Eos % (Auto) 0 L (0.7-5.8) Baso % (Auto) 0.1 (0.1-1.2) % Neut # (Auto) 15.51 H (1.56-6.13) K/mm3 Lymph # (Auto) 0.65 L (1.18-3.74) K/mm3 [place] # (Auto) 0.44 H (0.24-0.36) K/mm3 Eos # (Auto) 0.00 L (0.04-0.36) K/mm3 Baso # (Auto) 0.02 (0.01-0.08) K/mm3 Manual Slide Review Abnormal smear PT (9.5-12.1) SECONDS INR D-Dimer, Quantitative (0.19-0.50) mg/L Sodium 140 (136-145) mEq/L Potassium 4.3 (3.5-5.1) mEq/L Chloride 106 (98-107) mEq/L Carbon Dioxide 22 (21-32) mEq/L Anion Gap 16.3 H (5-15) BUN 12 (7-18) mg/dL Creatinine 1.0 (0.55-1.02) mg/dL Est Cr Clr Drug Dosing 72.42 mL/min Estimated GFR (MDRD) > 60 (>60) mL/min BUN/Creatinine Ratio 12.0 L (14-18) Glucose 216 H (74-106) mg/dL Lactic Acid 1.1 (0.4-2.0) mmol/L Calcium 9.1 (8.5-10.1) mg/dL Magnesium 2.0 (1.8-2.4) mg/dl Total Bilirubin (0.2-1.0) mg/dL AST (15-37) U/L ALT (14-59) U/L Alkaline Phosphatase (46-116) U/L C-Reactive Protein 2.2 H* (<1.0) mg/dL Total Protein (6.4-8.2) g/dl Albumin (3.4-5.0) g/dl Globulin gm/dL Albumin/Globulin Ratio (1-2) 12/09/18 Range/Units 05:12 WBC (3.98-10.04) K/mm3 RBC (3.98-5.22) M/mm3 Hgb (11.2-15.7) gm/L Hct (34.1-44.9) % MCV (79.4-94.8) fl MCH (25.6-32.2) pg MCHC (32.2-35.5) g/dl RDW Std Deviation (36.4-46.3) fL Plt Count (182-369) K/mm3 MPV (9.4-12.3) fl Neut % (Auto) (34.0-71.1) % Lymph % (Auto) (19.3-51.7) % [place] % (Auto) (4.7-12.5) % Eos % (Auto) (0.7-5.8) Baso % (Auto) (0.1-1.2) % Neut # (Auto) (1.56-6.13) K/mm3 Lymph # (Auto) (1.18-3.74) K/mm3 [place] # (Auto) (0.24-0.36) K/mm3 Eos # (Auto) (0.04-0.36) K/mm3 Baso # (Auto) (0.01-0.08) K/mm3 Manual Slide Review PT (9.5-12.1) SECONDS INR D-Dimer, Quantitative 0.83 H (0.19-0.50) mg/L Sodium (136-145) mEq/L Potassium (3.5-5.1) mEq/L Chloride (98-107) mEq/L Carbon Dioxide (21-32) mEq/L Anion Gap (5-15) BUN (7-18) mg/dL Creatinine (0.55-1.02) mg/dL Est Cr Clr Drug Dosing mL/min Estimated GFR (MDRD) (>60) mL/min BUN/Creatinine Ratio (14-18) Glucose (74-106) mg/dL Lactic Acid (0.4-2.0) mmol/L Calcium (8.5-10.1) mg/dL Magnesium (1.8-2.4) mg/dl Total Bilirubin (0.2-1.0) mg/dL AST (15-37) U/L ALT (14-59) U/L Alkaline Phosphatase (46-116) U/L C-Reactive Protein (<1.0) mg/dL Total Protein (6.4-8.2) g/dl Albumin (3.4-5.0) g/dl Globulin gm/dL Albumin/Globulin Ratio (1-2) Result Diagrams: 12/09/18 05:12 12/09/18 05:12 Problem List Initiated/Reviewed/Updated: Yes Orders Last 24hrs: Active Orders 24 hr Category Date Time Status Admission Status [Patient Status] [ADT] Routine ADT 12/08/18 19:23 Active Height and Weight [RC] DAILY Care 12/08/18 19:58 Active Intake and Output [RC] QSHIFT Care 12/08/18 20:00 Active Oxygen Therapy [RC] PRN Care 12/08/18 19:58 Active RT Aerosol Therapy [RC] ASDIRECTED Care 12/08/18 20:03 Active Up ad Dasha [RC] ASDIRECTED Care 12/08/18 19:58 Active VTE/DVT Education [RC] PER UNIT ROUTINE Care 12/08/18 19:58 Active Vital Signs [RC] Q4H Care 12/08/18 19:58 Active Consult to Case Management/Brand Ambassador Promotional Model [CONS] Cons 12/08/18 19:58 Active Routine Consult to Spiritual Care [CONS] Routine Cons 12/08/18 19:58 Active Regular Diet [DIET] Diet 12/09/18 Breakfast Active Ankle Min 3V Rt [CR] Stat Exams 12/08/18 17:53 Taken Tibia Fibula Rt [CR] Stat Exams 12/08/18 17:53 Taken BMP [BASIC METABOLIC PANEL,BMP] [CHEM] AM Lab 12/10/18 05:11 Ordered BMP [BASIC METABOLIC PANEL,BMP] [CHEM] AM Lab 12/11/18 05:11 Ordered BMP [BASIC METABOLIC PANEL,BMP] [CHEM] AM Lab 12/12/18 05:11 Ordered CBC WITH AUTO DIFF [HEME] AM Lab 12/10/18 05:11 Ordered CBC WITH AUTO DIFF [HEME] AM Lab 12/11/18 05:11 Ordered CBC WITH AUTO DIFF [HEME] AM Lab 12/12/18 05:11 Ordered CRP [C-REACTIVE PROTEIN] [CHEM] AM Lab 12/10/18 05:11 Ordered CRP [C-REACTIVE PROTEIN] [CHEM] AM Lab 12/11/18 05:11 Ordered CRP [C-REACTIVE PROTEIN] [CHEM] AM Lab 12/12/18 05:11 Ordered CULTURE BLOOD [BC] Stat Lab 12/08/18 18:27 Received MG [MAGNESIUM] [CHEM] AM Lab 12/10/18 05:11 Ordered MG [MAGNESIUM] [CHEM] AM Lab 12/11/18 05:11 Ordered MG [MAGNESIUM] [CHEM] AM Lab 12/12/18 05:11 Ordered VANCOMYCIN TROUGH [CHEM] Timed Lab 12/09/18 17:30 Ordered Acetaminophen [Tylenol] Med 12/08/18 19:46 Active 650 mg PO Q4H PRN Acetaminophen/HYDROcodone [Nallen 325-5 MG] Med 12/08/18 19:56 Pending 1 tab PO BEDTIME PRN Albuterol/Ipratropium [DuoNeb 3.0-0.5 MG/3 ML] Med 12/08/18 19:58 Active 3 ml NEB Q4H PRN Bisacodyl [Dulcolax] Med 12/08/18 19:58 Active 5 mg PO DAILY PRN Dexamethasone Med 12/08/18 21:15 Active 4 mg IVPUSH Q12H Docusate Sodium [Colace] Med 12/08/18 19:58 Active 100 mg PO BID PRN Docusate Sodium/Sennosides [Senna Plus] Med 12/08/18 19:58 Active 1 tab PO BID PRN Enoxaparin [Lovenox] Med 12/09/18 09:00 Active 40 mg SUBCUT DAILY HYDROmorphone [Dilaudid] Med 12/08/18 19:58 Active 0.25 mg IVPUSH Q2H PRN LORazepam [Ativan] Med 12/08/18 19:58 Active 1 mg IV Q6H PRN LORazepam [Ativan] Med 12/08/18 19:54 Active 2 mg IVPUSH Q4H PRN Loratadine [Allergy Relief] Med 12/09/18 09:00 Pending 10 mg PO DAILY Metoprolol Tartrate [Lopressor] Med 12/08/18 19:54 Active 5 mg IVPUSH Q4H PRN Ondansetron [Zofran] Med 12/08/18 19:58 Active 4 mg IV Q6H PRN Pharmacy to Dose - Magnesium R [Pharmacy to Dose - Med 12/08/18 20:00 Pending Magnesium Replacement] 1 dose .XX ASDIRECTED Pharmacy to Dose - Potassium R [Pharmacy to Dose - Med 12/08/18 20:00 Pending Potassium Replacement] 1 dose .XX ASDIRECTED Pharmacy to Dose - Vancomycin Med 12/09/18 08:00 Pending 1 dose .XX Q12H Piperacillin/Tazobactam [Piperacil-Tazobact] 4.5 gm Med 12/08/18 19:30 Active Sodium Chloride 0.9% [Normal Saline] 100 ml IV Q8H Saccharomyces Boulardii [Florastor] Med 12/09/18 09:00 Active 250 mg PO DAILY Temazepam [Restoril] Med 12/08/18 19:58 Active 7.5 mg PO BEDTIME PRN Vancomycin 1 gm Med 12/09/18 02:00 Active Vancomycin 250 mg Sodium Chloride 0.9% [Normal Saline] 250 ml IV Q8H hydrALAZINE [Apresoline] Med 12/08/18 19:54 Active 20 mg IVPUSH Q4H PRN Blood Culture x2 Reflex Set [OM.PC] Stat Oth 12/08/18 17:13 Ordered Code Status [Resuscitation Status] Stat Resus Stat 12/08/18 19:23 Ordered Medication Orders Acetaminophen (Tylenol) 650 mg PO Q4H PRN PRN Reason: Pain (Mild 1-3)/fever Last Admin: 12/08/18 22:03 Dose: 650 mg Hydrocodone Bitart/Acetaminophen (Nallen 325-5 Mg) 1 tab PO BEDTIME PRN PRN Reason: Pain Albuterol/Ipratropium (Duoneb 3.0-0.5 Mg/3 Ml) 3 ml NEB Q4H PRN PRN Reason: Shortness Of Breath/wheezing Bisacodyl (Dulcolax) 5 mg PO DAILY PRN PRN Reason: Constipation Dexamethasone (Dexamethasone) 4 mg IVPUSH Q12H [facility] Stop: 12/09/18 09:16 Last Admin: 12/08/18 21:39 Dose: 4 mg Docusate Sodium (Colace) 100 mg PO BID PRN PRN Reason: Constipation Enoxaparin Sodium (Lovenox) 40 mg SUBCUT DAILY [facility] Hydralazine HCl (Apresoline) 20 mg IVPUSH Q4H PRN PRN Reason: Hypertension Last Admin: 12/08/18 21:56 Dose: 20 mg Hydromorphone HCl (Dilaudid) 0.25 mg IVPUSH Q2H PRN PRN Reason: Pain (severe 7-10) Piperacillin Sod/Tazobactam (Sod 4.5 gm/ Sodium Chloride) 100 mls @ 25 mls/hr IV Q8H [facility] Last Admin: 12/09/18 04:00 Dose: 25 mls/hr Infusion: 12/09/18 01:48 Dose: 25 mls/hr Admin: 12/08/18 21:48 Dose: 25 mls/hr Vancomycin HCl 1 gm/Vancomycin HCl 250 mg/ Sodium Chloride 250 mls @ 166.667 mls/hr IV Q8H [facility] Last Admin: 12/09/18 03:54 Dose: 166.667 mls/hr Lorazepam (Ativan) 2 mg IVPUSH Q4H PRN PRN Reason: Seizures Lorazepam (Ativan) 1 mg IV Q6H PRN PRN Reason: Anxiety Magnesium Sulfate (Pharmacy To Dose - Magnesium Replacement) 1 dose .XX ASDIRECTED [facility] Metoprolol Tartrate (Lopressor) 5 mg IVPUSH Q4H PRN PRN Reason: Tachycardia Non-Formulary Medication (Loratadine [Allergy Relief]) 10 mg PO DAILY [facility] Ondansetron HCl (Zofran) 4 mg IV Q6H PRN PRN Reason: Nausea/Vomiting Potassium Chloride (Pharmacy To Dose - Potassium Replacement) 1 dose .XX ASDIRECTED [facility] Saccharomyces Boulardii (Florastor) 250 mg PO DAILY [facility] Senna/Docusate Sodium (Senna Plus) 1 tab PO BID PRN PRN Reason: Constipation Temazepam (Restoril) 7.5 mg PO BEDTIME PRN PRN Reason: Sleep Last Admin: 12/08/18 21:54 Dose: 7.5 mg Vancomycin HCl (Pharmacy To Dose - Vancomycin) 1 dose .XX Q12H [facility] Assessment/Plan Comment:: Assessment/Plan: Acute: Right Leg Cellulitis - S/p Fall - Carries a hx/o MS - Treated outpatient with oral antibiotic; w/o minimal improvement - Duplex U/S: Mild SubQ edema. No evidence of DVT - She is on biologic/immunosuppressant - WBC 11.81--> 16.71 (likely 2/2 MS); CRP 0.9 --> 2.2 - Need double coverage - Currently on IV Zosyn and Vancomycin-pharmacy to dose - So far since last night it had already improved - Possible d/c in AM S/p Hypersensitivity Reaction - Unknown in etiology - Localized to her neck and scalp - Not due to medications - Has gotten IV steroids, H2B and H1B Pre-Diabetes - NS 216 - A1C 6.30 - Risk Factor: Class II Obesity - Counseled on [facility] Chronic: Impaired Vision GERD Back Pain MS Migraines Anxiety Depression Hx/o Renal Stones Peripheral Neuropathy Plan: Admitted to [facility] last night She is clinically stable and responding to treatment Routine AM Labs Fall Precautions DVT PPx SW/CM for d/c planning Possible d/c in AM is stable
[2018-12-09 08:43] LABS: HEMOGLOBIN A1C 6.3 % (4.50-6.20)
[2018-12-09] MEDS: Loratadine 10 MG Tab PO SCH (08:55)
[2018-12-09] MEDS: Saccharomyces Boulardii (Probiotic) 250 MG Cap PO SCH (08:55)
[2018-12-09] MEDS: Enoxaparin 40 MG/0.4 ML Syringe SUBCUT SCH (08:55)
[2018-12-09] MEDS: Dexamethasone 4 MG/ML SDV IVPUSH SCH (08:56)
--- NOTE | 2018-12-09 09:47 | CR ---
Right tibia and fibula: AP and lateral views of the right tibia and fibula were obtained. Comparison: No previous study. Slight soft tissue swelling is noted anteriorly. Small plantar spur is noted. Soft tissue swelling is noted around the ankle. No acute fracture or other bony abnormality is seen. Impression: 1. Incidental findings as noted above. No acute bony abnormality is identified on two-view right tibia and fibula study. Diagnostic code #2
--- NOTE | 2018-12-09 09:47 | CR ---
Right ankle: Four views of the right ankle were obtained. Comparison: Prior right ankle study of 11/26/18. Soft tissue swelling is noted. Ankle mortise is symmetric. Small plantar spur is seen. No acute fracture, dislocation or other bony abnormality is seen. Impression: 1. Findings as noted above. No acute bony abnormality is identified. Diagnostic code #2
[2018-12-09] MEDS: Vancomycin 1 GM, Vancomycin 250 MG in Sodium Chloride 0.9% 250 ML IV SCH (17:45)
[2018-12-09] MEDS: hydrALAZINE 20 MG/ML SDV IVPUSH PRN (20:00)
[2018-12-09] MEDS ORDERED: Temazepam 15 MG Cap PO PRN (22:29)
[2018-12-10] MEDS: Piperacillin/Tazobactam 4.5 GM in Sodium Chloride 0.9% 100 ML IV SCH ×3 (03:18→18:30)
[2018-12-10] MEDS: Vancomycin 1 GM, Vancomycin 250 MG in Sodium Chloride 0.9% 250 ML IV SCH (03:19)
[2018-12-10] MEDS: Saccharomyces Boulardii (Probiotic) 250 MG Cap PO SCH ×2 (08:54→20:14)
[2018-12-10] MEDS: Enoxaparin 40 MG/0.4 ML Syringe SUBCUT SCH (08:54)
[2018-12-10] MEDS: Loratadine 10 MG Tab PO SCH (08:54)
--- NOTE | 2018-12-10 11:07 | PCM.PN ---
- General Info Date of Service: 12/10/18 Admission Dx/Problem (Free Text): Admission Diagnosis/Problem Admission Diagnosis/Problem Cellulitis of right lower leg Subjective Update: Follow Up Functional Status: Reports: Pain Controlled, Tolerating Diet, Ambulating, Urinating. Denies: New Symptoms - Review of Systems General: Denies: Fever, Weakness, Fatigue, Malaise, Chills HEENT: Reports: No Symptoms Pulmonary: Denies: Shortness of Breath Cardiovascular: Denies: Chest Pain, Dyspnea on Exertion, Lightheadedness Gastrointestinal: Denies: Abdominal Pain, Nausea, Vomiting Genitourinary: Reports: No Symptoms Musculoskeletal: Reports: No Symptoms Skin: Denies: Cyanosis, Mottled, Bruising Neurological: Reports: Gait Disturbance. Denies: Confusion, Difficulty Walking , Weakness Psychiatric: Denies: Depression, Anxiety, Agitation, Hallucinations Systems Review Comment:: Had a little trouble with her heart rate and blood pressure last night but now more this morning. She feels good now complaints. She is afebrile. Blood culture so far it negative. He CRP is minimal but her WBC continues to go up. Her leg appears to be getting better. - Patient Data Vitals - Most Recent: Last Vital Signs Temp 36.6 C 12/10/18 08:52 Pulse 83 12/10/18 08:52 Resp 18 12/10/18 08:52 BP 133/69 12/10/18 08:52 Pulse Ox 100 12/10/18 08:52 Weight - Most Recent: 105.868 kg I&O - Last 24 Hours: Intake & Output 12/09/18 12/10/18 12/10/18 22:59 06:59 14:59 Intake Total 770 1150 120 Output Total 900 1150 Balance -130 0 120 Lab Results Last 24 Hours: Laboratory Results - last 24 hr 12/10/18 12/10/18 Range/Units 04:00 04:50 WBC 17.97 H (3.98-10.04) K/mm3 RBC 4.53 (3.98-5.22) M/mm3 Hgb 13.0 (11.2-15.7) gm/L Hct 39.5 (34.1-44.9) % MCV 87.2 (79.4-94.8) fl MCH 28.7 (25.6-32.2) pg MCHC 32.9 (32.2-35.5) g/dl RDW Std Deviation 43.2 (36.4-46.3) fL Plt Count 381 H (182-369) K/mm3 MPV 11.1 (9.4-12.3) fl Neut % (Auto) 79.6 H (34.0-71.1) % Lymph % (Auto) 9.5 L (19.3-51.7) % [place] % (Auto) 9.9 (4.7-12.5) % Eos % (Auto) 0.1 L (0.7-5.8) Baso % (Auto) 0.2 (0.1-1.2) % Neut # (Auto) 14.30 H (1.56-6.13) K/mm3 Lymph # (Auto) 1.70 (1.18-3.74) K/mm3 [place] # (Auto) 1.78 H (0.24-0.36) K/mm3 Eos # (Auto) 0.02 L (0.04-0.36) K/mm3 Baso # (Auto) 0.04 (0.01-0.08) K/mm3 Manual Slide Review Normal smear Sodium 142 (136-145) mEq/L Potassium 3.7 (3.5-5.1) mEq/L Chloride 107 (98-107) mEq/L Carbon Dioxide 24 (21-32) mEq/L Anion Gap 14.7 (5-15) BUN 15 (7-18) mg/dL Creatinine 0.7 (0.55-1.02) mg/dL Est Cr Clr Drug Dosing 103.46 mL/min Estimated GFR (MDRD) > 60 (>60) mL/min BUN/Creatinine Ratio 21.4 H (14-18) Glucose 146 H (74-106) mg/dL Calcium 9.0 (8.5-10.1) mg/dL Magnesium 2.1 (1.8-2.4) mg/dl C-Reactive Protein 2.1 H* (<1.0) mg/dL [place] Results Last 24 Hours: Microbiology 12/08/18 18:27 Aerobic Blood Culture - Preliminary Blood - Venous - Lab Draw NO GROWTH AFTER 1 DAY Anaerobic Blood Culture - Preliminary NO GROWTH AFTER 1 DAY 12/08/18 05:40 Aerobic Blood Culture - Preliminary Blood - Venous NO GROWTH AFTER 1 DAY Anaerobic Blood Culture - Preliminary NO GROWTH AFTER 1 DAY Med Orders - Current: Current Medications Acetaminophen (Tylenol) 650 mg PO Q4H PRN PRN Reason: Pain (Mild 1-3)/fever Last Admin: 12/08/18 22:03 Dose: 650 mg Hydrocodone Bitart/Acetaminophen ([place] 325-5 Mg) 1 tab PO BEDTIME PRN PRN Reason: Pain Albuterol/Ipratropium (Duoneb 3.0-0.5 Mg/3 Ml) 3 ml NEB Q4H PRN PRN Reason: Shortness Of Breath/wheezing Bisacodyl (Dulcolax) 5 mg PO DAILY PRN PRN Reason: Constipation Docusate Sodium (Colace) 100 mg PO BID PRN PRN Reason: Constipation Enoxaparin Sodium (Lovenox) 40 mg SUBCUT DAILY [facility] Last Admin: 12/10/18 08:54 Dose: 40 mg Hydralazine HCl (Apresoline) 20 mg IVPUSH Q4H PRN PRN Reason: Hypertension Last Admin: 12/09/18 20:00 Dose: 20 mg Hydromorphone HCl (Dilaudid) 0.25 mg IVPUSH Q2H PRN PRN Reason: Pain (severe 7-10) Piperacillin Sod/Tazobactam (Sod 4.5 gm/ Sodium Chloride) 100 mls @ 25 mls/hr IV Q8H [facility] Last Admin: 12/10/18 03:18 Dose: 25 mls/hr Loratadine (Claritin) 10 mg PO DAILY [facility] Last Admin: 12/10/18 08:54 Dose: 10 mg Lorazepam (Ativan) 2 mg IVPUSH Q4H PRN PRN Reason: Seizures Lorazepam (Ativan) 1 mg IV Q6H PRN PRN Reason: Anxiety Last Admin: 12/09/18 21:39 Dose: 1 mg Magnesium Sulfate (Pharmacy To Dose - Magnesium Replacement) 1 dose .XX ASDIRECTED [facility] Metoprolol Tartrate (Lopressor) 5 mg IVPUSH Q4H PRN PRN Reason: Tachycardia Last Admin: 12/09/18 20:59 Dose: 5 mg Ondansetron HCl (Zofran) 4 mg IV Q6H PRN PRN Reason: Nausea/Vomiting Potassium Chloride (Pharmacy To Dose - Potassium Replacement) 1 dose .XX ASDIRECTED [facility] Saccharomyces Boulardii (Florastor) 250 mg PO DAILY [facility] Last Admin: 12/10/18 08:54 Dose: 250 mg Senna/Docusate Sodium (Senna Plus) 1 tab PO BID PRN PRN Reason: Constipation Temazepam (Restoril) 15 mg PO BEDTIME PRN PRN Reason: Sleep Discontinued Medications Dexamethasone (Dexamethasone) 4 mg IVPUSH Q12H [facility] Stop: 12/09/18 09:16 Last Admin: 12/09/18 08:56 Dose: 4 mg Famotidine (Pepcid) 20 mg IVPUSH ONETIME ONE Stop: 12/08/18 21:11 Last Admin: 12/08/18 21:41 Dose: 20 mg Sodium Chloride (Normal Saline) 1,000 mls @ 999 mls/hr IV ASDIRECTED [facility] Last Admin: 12/08/18 18:33 Dose: 999 mls/hr Vancomycin HCl 2 gm/ Sodium (Chloride) 250 mls @ 250 mls/hr IV ONETIME ONE Stop: 12/08/18 19:01 Last Admin: 12/08/18 21:00 Dose: Not Given Sodium Chloride (Normal Saline) Confirm Administered Dose 500 mls @ as directed .ROUTE .STK-MED ONE Stop: 12/08/18 18:08 Last Admin: 12/08/18 18:36 Dose: Not Given Vancomycin HCl 2 gm/ Sodium (Chloride) 500 mls @ 250 mls/hr IV ONETIME ONE Stop: 12/08/18 20:14 Last Admin: 12/08/18 18:34 Dose: 250 mls/hr Vancomycin HCl 1 gm/Vancomycin HCl 250 mg/ Sodium Chloride 250 mls @ 166.667 mls/hr IV Q8H [facility] Last Admin: 12/09/18 03:54 Dose: 166.667 mls/hr Vancomycin HCl 1 gm/Vancomycin HCl 250 mg/ Sodium Chloride 250 mls @ 166.667 mls/hr IV Q12H [facility] Last Admin: 12/10/18 03:19 Dose: 166.667 mls/hr Temazepam (Restoril) 7.5 mg PO BEDTIME PRN PRN Reason: Sleep Last Admin: 12/08/18 21:54 Dose: 7.5 mg Vancomycin HCl (Pharmacy To Dose - Vancomycin) 1 dose .XX ASDIRECTED [facility] Vancomycin HCl (Pharmacy To Dose - Vancomycin) 1 dose .XX Q12H [facility] Vancomycin HCl (Pharmacy To Dose - Vancomycin) 1 dose .XX Q12H [facility] - Exam General: Alert, Oriented, Cooperative, No Acute Distress HEENT: Pupils Equal, Pupils Reactive, EOMI, Mucous Membr. Moist/[place] Neck: Supple, Trachea Midline Lungs: Clear to Auscultation, Normal Respiratory Effort Cardiovascular: Regular Rate, Regular Rhythm GI/Abdominal Exam: Normal Bowel Sounds, Soft, Non-Tender, No Organomegaly, No Distention, No Abnormal Bruit (Female) Exam: Deferred Back Exam: Normal Inspection, Full Range of Motion Extremities: Normal Inspection, Normal Range of Motion, Non-Tender, No Pedal Edema, Normal Capillary Refill Skin: Warm, Dry, Intact, Ecchymosis (left romero ), Other (no obvious erythema on the right romero) Neurological: No New Focal Deficit Psy/Mental Status: Alert, Normal Affect, Normal Mood - Problem List Review Problem List Initiated/Reviewed/Updated: Yes - My Orders Last 24 Hours: My Active Orders 12/09/18 22:29 Temazepam [Restoril] 15 mg PO BEDTIME PRN 12/11/18 05:11 BMP [BASIC METABOLIC PANEL,BMP] [CHEM] AM CBC WITH AUTO DIFF [HEME] AM CRP [C-REACTIVE PROTEIN] [CHEM] AM MG [MAGNESIUM] [CHEM] AM 12/12/18 05:11 BMP [BASIC METABOLIC PANEL,BMP] [CHEM] AM CBC WITH AUTO DIFF [HEME] AM CRP [C-REACTIVE PROTEIN] [CHEM] AM MG [MAGNESIUM] [CHEM] AM - Plan Plan:: Assessment/Plan: Acute: Right Leg Cellulitis - S/p Fall - Carries a hx/o MS - Treated outpatient with oral antibiotic; w/o minimal improvement - Duplex U/S: Mild SubQ edema. No evidence of DVT - She is on biologic/immunosuppressant - WBC 11.81--> 16.71--> 17.97 (likely 2/2 MS); CRP 0.9 --> 2.2--> 2.1 - Need double coverage - Currently on IV Zosyn and Vancomycin-pharmacy to dose; May consider switching to oral antibiotic - Offered Quinolone as a possible oral agent and we went over potential risks and benefits with special attention to joint/connective tissue ruptures and she is will to try (with me was her day nurse, Batsheva) - So far since last night it had already improved - Her leg no shows no signs of edema or erythema - Would like to have another doctor to take a look at it - Will ask Dr. Cain for second opinion Pre-Diabetes - NS 216 - A1C 6.30 - Risk Factor: Class II Obesity - Counseled on LSM Untreated HTN - Lisinopril 10 mg x1 no then 20 mg po Daily - Norvasc 5 mg po x1 then 10 mg po QHS - HCTZ 25 mg po x1 now then 12.5 mg po BID Resolved: S/p Hypersensitivity Reaction - Unknown in etiology - Localized to her neck and scalp - Not due to medications - Has gotten IV steroids, H2B and H1B Chronic: Impaired Vision GERD Back Pain MS Migraines Anxiety Depression Hx/o Renal Stones Peripheral Neuropathy Plan: She is clinically stable otherwise Wants to know if she can bring in her dog; will defer to charge nurse PT/OT consult for eval Routine AM Labs Fall Precautions Called Dr. Cain for the consult DVT PPx SW/CM for d/c planning May need 1-2 days plus pending recommendations from Dr. Cain
[2018-12-10] MEDS ORDERED: Hydrochlorothiazide 25 MG Tab PO ONE (11:09)
[2018-12-10] MEDS ORDERED: amLODIPine 5 MG Tab PO ONE (11:09)
[2018-12-10] MEDS ORDERED: Lisinopril 10 MG Tab PO ONE (11:09)
[2018-12-10] MEDS: Acetaminophen 325 MG Tab PO PRN (13:36)
[2018-12-10] MEDS: Hydrochlorothiazide 12.5 MG Cap PO SCH (13:38)
--- NOTE | 2018-12-10 19:29 | PCM.CONS ---
H&P History of Present Illness - General Date of Service: 12/10/18 Admit Problem/Dx: Admission Diagnosis/Problem Admission Diagnosis/Problem Cellulitis of right lower leg Source of Information: Patient, Provider History Limitations: Reports: No Limitations - History of Present Illness Initial Comments - Free Text/Narative: The patient is a 43 y/o lady who presents with edema and erythema of the RLE. She reports an injury 2-3 weeks ago where she slipped and hit her leg against her truck. She had subsequent edema in the extremity and was treated with multiple PO antibiotics, but has had lingering edema and erythema as well as pain. She has been in the hospital for >24hr, but has continued elevated WBC. She reports subjective fever at home with chills. She is taking an immune modulating medication currently to control her MS symptoms, last dose was one month ago. Right Lower Leg Pain Score (Numeric/FACES): 5 - Related Data Allergies/Adverse Reactions: Allergies Allergy/AdvReac Type Severity Reaction Status Date / Time chlorhexidine Allergy Rash Verified 12/08/18 22:50 ketoconazole Allergy Rash Verified 12/08/18 22:50 Penicillins AdvReac Vomiting Verified 12/08/18 22:50 sulfamethoxazole AdvReac Vomiting Verified 12/08/18 22:50 [From Bactrim] trimethoprim [From Bactrim] AdvReac Vomiting Verified 12/08/18 22:50 Home Medications: Home Meds Acetaminophen/HYDROcodone [[place] 325-5 MG] 1 tab PO BEDTIME PRN 12/08/18 [ History] Famotidine 0 mg PO BEDTIME 12/08/18 [History] Loratadine [Allergy Relief] 10 mg PO DAILY 12/08/18 [History] Past Medical History HEENT History: Reports: Hard of Hearing, Impaired Vision Other HEENT History: wears glasses, can't hear out of right ear Gastrointestinal History: Reports: GERD Genitourinary History: Reports: Renal Calculus, UTI, Recurrent Musculoskeletal History: Reports: Back Pain, Chronic Neurological History: Reports: Concussion, Migraines, MS Psychiatric History: Reports: Anxiety, Depression, Panic Attack, PTSD Endocrine/Metabolic History: Reports: Obesity/BMI 30+ Dermatologic History: Reports: Cellulitis, Other (See Below) Other Dermatologic History: 12/08/18 cellulitis right leg - Infectious Disease History Infectious Disease History: Reports: Chicken Pox, Influenza - Past Surgical History HEENT Surgical History: Reports: Oral Surgery, Tonsillectomy, Other (See Below) Other HEENT Surgeries/Procedures: dog bit to upper lip, plastic surgery to repair GI Surgical History: Reports: Appendectomy Female Surgical History: Reports: None Endocrine Surgical History: Reports: None Neurological Surgical History: Reports: Laminectomy Musculoskeletal Surgical History: Reports: None Dermatological Surgical History: Reports: None Social & Family History - Family History Family Medical History: Unobtainable (patient was adopted) - Tobacco Use Smoking Status *Q: Former Smoker Used Tobacco, but Quit: No Month/Year Tobacco Last Used: 1996 Second Hand Smoke Exposure: No - Caffeine Use Caffeine Use: Reports: Soda Other Caffeine Use: one can mellow yellow a day - Recreational Drug Use Recreational Drug Use: No - Living Situation & Occupation Living situation: Reports: , with Spouse 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) H&P Review of Systems - Review of Systems: Review Of Systems: See Below General: Reports: Fever, Chills HEENT: Reports: No Symptoms Pulmonary: Reports: No Symptoms Cardiovascular: Reports: No Symptoms Gastrointestinal: Reports: No Symptoms Genitourinary: Reports: No Symptoms Musculoskeletal: Reports: Leg Pain Skin: Reports: Erythema, Other (edema in the RLE) Psychiatric: Reports: No Symptoms Neurological: Reports: Weakness (chronic right sided weakness) Hematologic/Lymphatic: Reports: No Symptoms Immunologic: Reports: No Symptoms Exam - Exam Exam: See Below - Vital Signs Vital Signs: Last Vital Signs Temp 36.8 C 12/10/18 16:48 Pulse 87 12/10/18 16:48 Resp 16 12/10/18 16:48 BP 120/66 12/10/18 16:48 Pulse Ox 99 12/10/18 16:48 Weight: 105.868 kg - Exam Quality Assessment: No: Supplemental Oxygen General: Alert, Oriented HEENT: Conjunctiva Clear, EOMI Neck: Supple Lungs: Clear to Auscultation, Normal Respiratory Effort Cardiovascular: Regular Rate, Regular Rhythm GI/Abdominal Exam: Normal Bowel Sounds, Soft, Non-Tender, No Distention Extremities: Redness (very mild near the ankle anteriorly), Other (mild edema of the RLE with firm, tender mass in the area of the injury. No fluctuance) Peripheral Pulses: 2+: Dorsalis Pedis (L), Dorsalis Pedis (R) Skin: Warm, Dry, Intact, Ecchymosis (healing ecchymosis over the injury site on the RLE) Neurological: Cranial Nerves Intact Neuro Extensive - Mental Status: Alert, Oriented x3, Normal Mood/Affect - Patient Data Lab Results Last 24 hrs: Laboratory Results - last 24 hr 12/10/18 12/10/18 Range/Units 04:00 04:50 WBC 17.97 H (3.98-10.04) K/mm3 RBC 4.53 (3.98-5.22) M/mm3 Hgb 13.0 (11.2-15.7) gm/L Hct 39.5 (34.1-44.9) % MCV 87.2 (79.4-94.8) fl MCH 28.7 (25.6-32.2) pg MCHC 32.9 (32.2-35.5) g/dl RDW Std Deviation 43.2 (36.4-46.3) fL Plt Count 381 H (182-369) K/mm3 MPV 11.1 (9.4-12.3) fl Neut % (Auto) 79.6 H (34.0-71.1) % Lymph % (Auto) 9.5 L (19.3-51.7) % [place] % (Auto) 9.9 (4.7-12.5) % Eos % (Auto) 0.1 L (0.7-5.8) Baso % (Auto) 0.2 (0.1-1.2) % Neut # (Auto) 14.30 H (1.56-6.13) K/mm3 Lymph # (Auto) 1.70 (1.18-3.74) K/mm3 [place] # (Auto) 1.78 H (0.24-0.36) K/mm3 Eos # (Auto) 0.02 L (0.04-0.36) K/mm3 Baso # (Auto) 0.04 (0.01-0.08) K/mm3 Manual Slide Review Normal smear Sodium 142 (136-145) mEq/L Potassium 3.7 (3.5-5.1) mEq/L Chloride 107 (98-107) mEq/L Carbon Dioxide 24 (21-32) mEq/L Anion Gap 14.7 (5-15) BUN 15 (7-18) mg/dL Creatinine 0.7 (0.55-1.02) mg/dL Est Cr Clr Drug Dosing 103.46 mL/min Estimated GFR (MDRD) > 60 (>60) mL/min BUN/Creatinine Ratio 21.4 H (14-18) Glucose 146 H (74-106) mg/dL Calcium 9.0 (8.5-10.1) mg/dL Magnesium 2.1 (1.8-2.4) mg/dl C-Reactive Protein 2.1 H* (<1.0) mg/dL Result Diagrams: 12/10/18 04:50 12/10/18 04:00 [place] Results Last 24 hrs: Microbiology 12/08/18 18:27 Aerobic Blood Culture - Preliminary Blood - Venous - Lab Draw NO GROWTH AFTER 2 DAYS Anaerobic Blood Culture - Preliminary NO GROWTH AFTER 2 DAYS 12/08/18 05:40 Aerobic Blood Culture - Preliminary Blood - Venous NO GROWTH AFTER 2 DAYS Anaerobic Blood Culture - Preliminary NO GROWTH AFTER 2 DAYS Consult PN Assessment/Plan Procedures: Procedures ASSAY OF LACTIC ACID (11/26/18) ASSAY OF MAGNESIUM (07/25/18) BL SMEAR W/DIFF WBC COUNT (07/25/18) BLOOD CULTURE FOR BACTERIA (11/26/18) BLOOD TYPING SEROLOGIC ABO (09/19/17) BLOOD TYPING SEROLOGIC RH(D) (09/19/17) C-REACTIVE PROTEIN (11/26/18) CHORIONIC GONADOTROPIN ASSAY (09/19/17) CHYLMD TRACH DNA AMP PROBE (06/28/18) COMPLETE CBC AUTOMATED (07/25/18) COMPLETE CBC W/AUTO DIFF WBC (11/26/18) COMPREHEN METABOLIC PANEL (11/26/18) CULTURE AEROBIC IDENTIFY (05/31/18) EMERGENCY DEPT VISIT (11/26/18) EMERGENCY DEPT VISIT (01/27/18) EMERGENCY DEPT VISIT (12/03/17) EMERGENCY DEPT VISIT (11/09/17) EMERGENCY DEPT VISIT (09/19/17) EMERGENCY DEPT VISIT (06/19/17) EMERGENCY DEPT VISIT (05/25/17) EMERGENCY DEPT VISIT (12/07/16) EMERGENCY DEPT VISIT (12/04/15) EMERGENCY DEPT VISIT (07/19/15) EMERGENCY DEPT VISIT (07/14/15) EMERGENCY DEPT VISIT (02/14/15) EMERGENCY DEPT VISIT (11/28/14) EMERGENCY DEPT VISIT (11/13/14) EMERGENCY DEPT VISIT (06/15/14) EMERGENCY DEPT VISIT (03/06/14) HELICOBACTER PYLORI ANTIBODY (01/27/18) HYDRATE IV INFUSION ADD-ON (01/27/18) MRI BRAIN STEM W/O & W/DYE (08/05/14) N.GONORRHOEAE DNA AMP PROB (06/28/18) ROUTINE VENIPUNCTURE (11/26/18) RPR F/E/E/N/L/M 2.5 CM/< (07/14/15) SMEAR WET [place] SALINE/INK (09/20/18) THER/PROPH/DIAG INJ IV PUSH (01/27/18) THER/PROPH/DIAG INJ SC/IM (06/08/17) THER/PROPH/DIAG IV INF INIT (11/26/18) TRANSVAGINAL US NON-OB (09/19/17) TRICHOMONAS ASSAY W/OPTIC (09/20/18) TX/PRO/DX INJ NEW DRUG ADDON (11/26/18) TX/PROPH/DG ADDL SEQ IV INF (11/26/18) URINALYSIS AUTO W/SCOPE (09/20/18) URINE CULTURE/COLONY COUNT (05/31/18) X-RAY EXAM L-S SPINE 2/3 VWS (05/25/17) X-RAY EXAM OF ANKLE (11/26/18) X-RAY EXAM OF LOWER LEG (11/26/18) X-RAY EXAM SERIES ABDOMEN (01/27/18) (1) Cellulitis of right lower leg SNOMED Code(s): 085075995 Code(s): L03.115 - CELLULITIS OF RIGHT LOWER LIMB Current Visit: No Problem List Initiated/Reviewed/Updated: Yes Plan: 43 y/o lady with cellulitis of RLE, cannot rule out abscess - recommend CT of the RLE with IV contrast to evaluate the deeper tissues of the RLE. Cannot appreciate fluctuance on exam - recommend CXR and UA to complete search for source since she has continued elevation in her WBC - continue medical management per primary - continue current pain regimen - NPO in am until after the CT scan has been completed and evaluated Hayley Rivas MD General surgery
[2018-12-10] MEDS ORDERED: Sodium Chloride 0.9% 250 ML IV PRN (19:30)
[2018-12-10] MEDS ORDERED: Iopamidol 755 Mg/ML 200 ML Bottle IV ONE (20:27)
[2018-12-10] MEDS ORDERED: amLODIPine 10 MG Tab PO SCH (21:00)
[2018-12-10] MEDS ORDERED: Levofloxacin 500 MG Tab PO SCH (21:00)
[2018-12-10] MEDS: Clindamycin Phosphate 600 MG in Sodium Chloride 0.9% 100 ML IV SCH (22:00)
[2018-12-11] MEDS: Clindamycin Phosphate 600 MG in Sodium Chloride 0.9% 100 ML IV SCH ×3 (02:14→12:31)
[2018-12-11] MEDS: Piperacillin/Tazobactam 4.5 GM in Sodium Chloride 0.9% 100 ML IV SCH ×2 (02:30→11:10)
--- NOTE | 2018-12-11 06:46 | CR ---
Chest: Portable view of the chest was obtained. Comparison: No prior chest x-ray. Cardiac silhouette and mediastinum are within normal limits. Lungs are clear and no acute parenchymal change. Bony structures are unremarkable. Impression: 1. Nothing acute is seen on portable chest x-ray. Diagnostic code #1 I agree with preliminary report from [facility], finalized on 12/10/18, 9:03 PM Central Time
--- NOTE | 2018-12-11 07:11 | CT ---
CT right lower extremity Technique: Multiple axial sections were obtained through the right tibia and fibula. Intravenous contrast was utilized. Findings: Subcutaneous edema is noted within the lower aspect of the tibia and fibula along the fibular side of the lateral lower leg. No fluid collections are seen. No bony destruction is noted. Lateral joint space narrowing is noted. No acute fracture is seen. Impression: 1. Soft tissue swelling along the distal fibula presumably representing cellulitis. No soft tissue abscess is seen. No bony destruction is identified. Diagnostic code #3 I agree with preliminary report from [facility], finalized on 12/10/18, 10:01 PM Central Time
[2018-12-11] MEDS ORDERED: Lisinopril 20 MG Tab PO SCH (09:00)
--- NOTE | 2018-12-11 09:02 | PCM.PN ---
- General Info Date of Service: 12/11/18 Admission Dx/Problem (Free Text): Admission Diagnosis/Problem Admission Diagnosis/Problem Cellulitis of right lower leg - Patient Data Vitals - Most Recent: Last Vital Signs Temp 97.9 F 12/11/18 07:43 Pulse 80 12/11/18 07:43 Resp 16 12/11/18 07:43 BP 102/77 12/11/18 07:43 Pulse Ox 99 12/11/18 07:43 Weight - Most Recent: 230 lb I&O - Last 24 Hours: Intake & Output 12/10/18 12/11/18 12/11/18 22:59 06:59 14:59 Intake Total 790 950 Output Total 1750 3300 Balance -960 -2350 Lab Results Last 24 Hours: Laboratory Results - last 24 hr 12/10/18 12/11/18 12/11/18 Range/Units 21:10 05:00 05:00 WBC 9.98 (3.98-10.04) K/mm3 RBC 4.60 (3.98-5.22) M/mm3 Hgb 13.3 (11.2-15.7) gm/L Hct 40.2 (34.1-44.9) % MCV 87.4 (79.4-94.8) fl MCH 28.9 (25.6-32.2) pg MCHC 33.1 (32.2-35.5) g/dl RDW Std Deviation 44.1 (36.4-46.3) fL Plt Count 379 H (182-369) K/mm3 MPV 10.9 (9.4-12.3) fl Neut % (Auto) 55.5 (34.0-71.1) % Lymph % (Auto) 24.5 (19.3-51.7) % [place] % (Auto) 15.0 H (4.7-12.5) % Eos % (Auto) 2.4 (0.7-5.8) Baso % (Auto) 0.7 (0.1-1.2) % Neut # (Auto) 5.53 (1.56-6.13) K/mm3 Lymph # (Auto) 2.45 (1.18-3.74) K/mm3 [place] # (Auto) 1.50 H (0.24-0.36) K/mm3 Eos # (Auto) 0.24 (0.04-0.36) K/mm3 Baso # (Auto) 0.07 (0.01-0.08) K/mm3 Manual Slide Review Normal smear Sodium 139 (136-145) mEq/L Potassium 3.7 (3.5-5.1) mEq/L Chloride 103 (98-107) mEq/L Carbon Dioxide 26 (21-32) mEq/L Anion Gap 13.7 (5-15) BUN 17 (7-18) mg/dL Creatinine 0.8 (0.55-1.02) mg/dL Est Cr Clr Drug Dosing 90.53 mL/min Estimated GFR (MDRD) > 60 (>60) mL/min BUN/Creatinine Ratio 21.3 H (14-18) Glucose 117 H (74-106) mg/dL Calcium 8.5 (8.5-10.1) mg/dL Magnesium 1.9 (1.8-2.4) mg/dl C-Reactive Protein 0.7 (<1.0) mg/dL Urine Color [place] H (Yellow) Urine Appearance Clear (Clear) Urine pH 7.0 (5.0-8.0) Ur Specific [place] 1.020 (1.005-1.030) Urine Protein Negative (Negative) Urine Glucose (UA) Negative (Negative) Urine Ketones Negative (Negative) Urine Occult Blood 3+ H (Negative) Urine Nitrite Negative (Negative) Urine Bilirubin Negative (Negative) Urine Urobilinogen 0.2 (0.2-1.0) Ur Leukocyte Esterase Negative (Negative) Urine RBC 20-30 H (0-5) /hpf Urine WBC 10-20 H (0-5) /hpf Ur Epithelial Cells Not seen (0-5) /hpf Urine Bacteria Not seen (FEW) /hpf Urine Mucus Not seen (FEW) /hpf [place] Results Last 24 Hours: Microbiology 12/08/18 18:27 Aerobic Blood Culture - Preliminary Blood - Venous - Lab Draw NO GROWTH AFTER 2 DAYS Anaerobic Blood Culture - Preliminary NO GROWTH AFTER 2 DAYS 12/08/18 05:40 Aerobic Blood Culture - Preliminary Blood - Venous NO GROWTH AFTER 2 DAYS Anaerobic Blood Culture - Preliminary NO GROWTH AFTER 2 DAYS Med Orders - Current: Current Medications Acetaminophen (Tylenol) 650 mg PO Q4H PRN PRN Reason: Pain (Mild 1-3)/fever Last Admin: 12/10/18 13:36 Dose: 650 mg Hydrocodone Bitart/Acetaminophen ([place] 325-5 Mg) 1 tab PO BEDTIME PRN PRN Reason: Pain Albuterol/Ipratropium (Duoneb 3.0-0.5 Mg/3 Ml) 3 ml NEB Q4H PRN PRN Reason: Shortness Of Breath/wheezing Amlodipine Besylate (Norvasc) 10 mg PO BEDTIME [facility] Last Admin: 12/10/18 20:14 Dose: 10 mg Bisacodyl (Dulcolax) 5 mg PO DAILY PRN PRN Reason: Constipation Docusate Sodium (Colace) 100 mg PO BID PRN PRN Reason: Constipation Enoxaparin Sodium (Lovenox) 40 mg SUBCUT DAILY [facility] Last Admin: 12/10/18 08:54 Dose: 40 mg Hydralazine HCl (Apresoline) 20 mg IVPUSH Q4H PRN PRN Reason: Hypertension Last Admin: 12/09/18 20:00 Dose: 20 mg Hydrochlorothiazide (Hydrochlorothiazide) 12.5 mg PO BIDDIURETIC [facility] Last Admin: 12/10/18 13:38 Dose: 12.5 mg Hydromorphone HCl (Dilaudid) 0.25 mg IVPUSH Q2H PRN PRN Reason: Pain (severe 7-10) Piperacillin Sod/Tazobactam (Sod 4.5 gm/ Sodium Chloride) 100 mls @ 25 mls/hr IV Q8H [facility] Last Admin: 12/11/18 02:30 Dose: 25 mls/hr Clindamycin Phosphate 600 mg/ (Sodium Chloride) 104 mls @ 100 mls/hr IV Q6H [facility] Last Admin: 12/11/18 06:08 Dose: 100 mls/hr Lisinopril (Prinivil) 20 mg PO DAILY [facility] Loratadine (Claritin) 10 mg PO DAILY [facility] Last Admin: 12/10/18 08:54 Dose: 10 mg Lorazepam (Ativan) 2 mg IVPUSH Q4H PRN PRN Reason: Seizures Lorazepam (Ativan) 1 mg IV Q6H PRN PRN Reason: Anxiety Last Admin: 12/09/18 21:39 Dose: 1 mg Magnesium Sulfate (Pharmacy To Dose - Magnesium Replacement) 1 dose .XX ASDIRECTED [facility] Metoprolol Tartrate (Lopressor) 5 mg IVPUSH Q4H PRN PRN Reason: Tachycardia Last Admin: 12/09/18 20:59 Dose: 5 mg Ondansetron HCl (Zofran) 4 mg IV Q6H PRN PRN Reason: Nausea/Vomiting Potassium Chloride (Pharmacy To Dose - Potassium Replacement) 1 dose .XX ASDIRECTED [facility] Saccharomyces Boulardii (Florastor) 250 mg PO BID [facility] Last Admin: 12/10/18 20:14 Dose: 250 mg Senna/Docusate Sodium (Senna Plus) 1 tab PO BID PRN PRN Reason: Constipation Temazepam (Restoril) 15 mg PO BEDTIME PRN PRN Reason: Sleep Last Admin: 12/10/18 23:40 Dose: 15 mg Discontinued Medications Amlodipine Besylate (Norvasc) 5 mg PO ONETIME ONE Stop: 12/10/18 11:10 Last Admin: 12/10/18 11:49 Dose: 5 mg Dexamethasone (Dexamethasone) 4 mg IVPUSH Q12H [facility] Stop: 12/09/18 09:16 Last Admin: 12/09/18 08:56 Dose: 4 mg Famotidine (Pepcid) 20 mg IVPUSH ONETIME ONE Stop: 12/08/18 21:11 Last Admin: 12/08/18 21:41 Dose: 20 mg Hydrochlorothiazide (Hydrochlorothiazide) 25 mg PO ONETIME ONE Stop: 12/10/18 11:10 Last Admin: 12/10/18 11:53 Dose: 25 mg Sodium Chloride (Normal Saline) 1,000 mls @ 999 mls/hr IV ASDIRECTED [facility] Last Admin: 12/08/18 18:33 Dose: 999 mls/hr Vancomycin HCl 2 gm/ Sodium (Chloride) 250 mls @ 250 mls/hr IV ONETIME ONE Stop: 12/08/18 19:01 Last Admin: 12/08/18 21:00 Dose: Not Given Sodium Chloride (Normal Saline) Confirm Administered Dose 500 mls @ as directed .ROUTE .STK-MED ONE Stop: 12/08/18 18:08 Last Admin: 12/08/18 18:36 Dose: Not Given Vancomycin HCl 2 gm/ Sodium (Chloride) 500 mls @ 250 mls/hr IV ONETIME ONE Stop: 12/08/18 20:14 Last Admin: 12/08/18 18:34 Dose: 250 mls/hr Vancomycin HCl 1 gm/Vancomycin HCl 250 mg/ Sodium Chloride 250 mls @ 166.667 mls/hr IV Q8H [facility] Last Admin: 12/09/18 03:54 Dose: 166.667 mls/hr Vancomycin HCl 1 gm/Vancomycin HCl 250 mg/ Sodium Chloride 250 mls @ 166.667 mls/hr IV Q12H [facility] Last Admin: 12/10/18 03:19 Dose: 166.667 mls/hr Sodium Chloride (Normal Saline) 250 mls @ 499.445 mls/hr IV .BOLUS PRN PRN Reason: 250ML BEFORE AND AFTER CT SCAN Stop: 12/10/18 23:59 Last Admin: 12/10/18 20:12 Dose: 499.445 mls/hr Iopamidol (Isovue-370 (76%)) 200 ml IV ONETIME ONE Stop: 12/10/18 20:28 Last Admin: 12/10/18 20:55 Dose: 200 ml Levofloxacin (Levaquin) 500 mg PO Q24H [facility] Lisinopril (Prinivil) 10 mg PO ONETIME ONE Stop: 12/10/18 11:10 Last Admin: 12/10/18 11:53 Dose: 10 mg Saccharomyces Boulardii (Florastor) 250 mg PO DAILY [facility] Last Admin: 12/10/18 08:54 Dose: 250 mg Temazepam (Restoril) 7.5 mg PO BEDTIME PRN PRN Reason: Sleep Last Admin: 12/08/18 21:54 Dose: 7.5 mg Vancomycin HCl (Pharmacy To Dose - Vancomycin) 1 dose .XX ASDIRECTED [facility] Vancomycin HCl (Pharmacy To Dose - Vancomycin) 1 dose .XX Q12H [facility] Vancomycin HCl (Pharmacy To Dose - Vancomycin) 1 dose .XX Q12H [facility] - Problem List & Annotations (1) Pre-diabetes SNOMED Code(s): 453505713 Code(s): R73.03 - PREDIABETES Status: Acute Priority: High Current Visit: Yes (2) Cellulitis, leg SNOMED Code(s): 506304846 Code(s): L03.119 - CELLULITIS OF UNSPECIFIED PART OF LIMB Status: Acute Priority: High Current Visit: Yes Qualifiers: Laterality: right Qualified Code(s): L03.115 - Cellulitis of right lower limb (3) HTN (hypertension) SNOMED Code(s): 36566207 Code(s): I10 - ESSENTIAL (PRIMARY) HYPERTENSION Status: Acute Priority: High Current Visit: Yes Qualifiers: Hypertension type: unspecified Qualified Code(s): I10 - Essential (primary ) hypertension - Problem List Review Problem List Initiated/Reviewed/Updated: Yes - Plan Plan:: Assessment/Plan: Acute: Right Leg Cellulitis - S/p Fall - Carries a hx/o MS - Treated outpatient with oral antibiotic; w/o minimal improvement - Duplex U/S: Mild SubQ edema. No evidence of DVT - She is on biologic/immunosuppressant - WBC 11.81--> 16.71--> 17.97 (likely 2/2 MS); CRP 0.9 --> 2.2--> 2.1 - Need double coverage - Currently on IV Zosyn and Vancomycin-pharmacy to dose; May consider switching to oral antibiotic - Offered Quinolone as a possible oral agent and we went over potential risks and benefits with special attention to joint/connective tissue ruptures and she is will to try (with me was her day nurse, Batsheva) - So far since last night it had already improved - Her leg no shows no signs of edema or erythema - Would like to have another doctor to take a look at it - Will ask Dr. Cain for second opinion Pre-Diabetes - NS 216 - A1C 6.30 - Risk Factor: Class II Obesity - Counseled on LSM Untreated HTN - Lisinopril 10 mg x1 no then 20 mg po Daily - Norvasc 5 mg po x1 then 10 mg po QHS - HCTZ 25 mg po x1 now then 12.5 mg po BID Resolved: S/p Hypersensitivity Reaction - Unknown in etiology - Localized to her neck and scalp - Not due to medications - Has gotten IV steroids, H2B and H1B Chronic: Impaired Vision GERD Back Pain MS Migraines Anxiety Depression Hx/o Renal Stones Peripheral Neuropathy Plan: She is clinically stable otherwise Wants to know if she can bring in her dog; will defer to charge nurse PT/OT consult for eval Routine AM Labs Fall Precautions Called Dr. Cain for the consult DVT PPx SW/CM for d/c planning May need 1-2 days plus pending recommendations from Dr. Cain
[2018-12-11] MEDS: Saccharomyces Boulardii (Probiotic) 250 MG Cap PO SCH (11:13)
[2018-12-11] MEDS: Loratadine 10 MG Tab PO SCH (11:13)
[2018-12-11] MEDS: Enoxaparin 40 MG/0.4 ML Syringe SUBCUT SCH (11:14)
[2018-12-11] MEDS: Hydrochlorothiazide 12.5 MG Cap PO SCH ×2 (11:14→15:26)
[2018-12-11 11:40] VITALS: BP 130/69
--- NOTE | 2018-12-11 12:08 | PCM.DCSUM1 ---
Discharge Summary - Hospital Course HPI Initial Comments: This is a 43 yo white female with past medical hx/o Impaired Vision, GERD, Back Pain, MS, Migraines, Anxiety, Depression, Hx/o Renal Stones, Peripheral Neuropathy and Class II Obesity who comes in at the request of her neurologist for continuing RLE pain associated with redness and swelling for about 2.5 weeks now after slipping while trying to get into her car. She was initially seen in ED here in [place] and was treated with Doxy and Clinda. She states she completed both medications. Then she was started on Zyvox about 2 days ago by her neurologist due to lingering symptoms. She admits to chronic numbness or tingling but no other neurological deficits. She also reports having fever and chills. Her initial work up in ED shows a CBC remarkable for WBC of 11.81, Platelet # of 387, Lymphocyte of 16.8%, Monocyte of 14.6%, Neutrophil # of 7.66, Monocyte # of 1.72 and Basophil # of 0.10. Her coagulation studies are within normal limits. Her initial chemistry was remarkable for AST of 14, and Alk Phos of 127. Her screening is negative. Her ankle as well as tibia and fibula x-ray report reads no acute bony abnormality are identified. Her peripheral U/S report reads mild subcutaneous edema within the right anterior calf. No evidence of deep vein thrombosis within the right lower extremity or within the left common femoral vein. Patient was admitted last night for treatment of continuing right leg cellulitis. Diagnosis: Stroke: No - Discharge Data Discharge Date: 12/11/18 (Admit date: 12/08/18) Discharge Disposition: Home, Self-Care 01 Condition: Good - Discharge Diagnosis/Problem(s) (1) Pre-diabetes SNOMED Code(s): 052253534 ICD Code: R73.03 - PREDIABETES Status: Acute Priority: High Current Visit: Yes (2) Cellulitis, leg SNOMED Code(s): 841847694 ICD Code: L03.119 - CELLULITIS OF UNSPECIFIED PART OF LIMB Status: Acute Priority: High Current Visit: Yes Qualifiers: Laterality: right Qualified Code(s): L03.115 - Cellulitis of right lower limb (3) HTN (hypertension) SNOMED Code(s): 60147653 ICD Code: I10 - ESSENTIAL (PRIMARY) HYPERTENSION Status: Acute Priority: High Current Visit: Yes Qualifiers: Hypertension type: essential hypertension Qualified Code(s): I10 - Essential (primary) hypertension - Patient Summary/Data Consults: Consultations 12/08/18 19:58 Consult to Case Management/Medical Auditor [CONS] Routine Consult to Spiritual Care [CONS] Routine 12/10/18 11:08 Consult to Occupational Therapy [OT Evaluation and Treatment] [CONS] Routine PT Evaluation and Treatment [CONS] Routine 12/10/18 13:48 Consult to Physician [CONS] Routine Labs Pending at D/C: None Recommended Follow-up Testing/Procedures: Follow-up with PCP within 1 week of discharge, sooner if needed. Hospital Course: Assessment/Plan: Acute: Right Leg Cellulitis - S/p Fall - Carries a hx/o MS - Treated outpatient with oral antibiotic; w/o minimal improvement - Duplex U/S: Mild SubQ edema. No evidence of DVT - She is on biologic/immunosuppressant - WBC 11.81--> 16.71--> 17.97-->9.98 (likely 2/2 MS); CRP 0.9 --> 2.2--> 2.1- ->0.7 - Need double coverage - Currently on IV Zosyn and Vancomycin-pharmacy to dose; May consider switching to oral antibiotic - Offered Quinolone as a possible oral agent and we went over potential risks and benefits with special attention to joint/connective tissue ruptures and she is will to try (with me was her day nurse, Batsheva) - So far since last night it had already improved - Her leg no shows no signs of edema or erythema - Would like to have another doctor to take a look at it - Will ask Dr. Cain for second opinion Pre-Diabetes - NS 216 - A1C 6.30 - Risk Factor: Class II Obesity - Counseled on LSM Untreated HTN - Lisinopril 10 mg x1 no then 20 mg po Daily - Norvasc 5 mg po x1 then 10 mg po QHS - HCTZ 25 mg po x1 now then 12.5 mg po BID Resolved: S/p Hypersensitivity Reaction - Unknown in etiology - Localized to her neck and scalp - Not due to medications - Has gotten IV steroids, H2B and H1B Chronic: Impaired Vision GERD Back Pain MS Migraines Anxiety Depression Hx/o Renal Stones Peripheral Neuropathy Plan: She is clinically stable otherwise Wants to know if she can bring in her dog; will defer to charge nurse PT/OT consult for eval Routine AM Labs Fall Precautions Called Dr. Cain for the consult DVT PPx SW/CM for d/c planning Keya Mccauley was admitted for management after failing outpatient treatment for right leg cellulitis. Of note she does have a history of MS and is on immunosuppressants. She was started on Zosyn and vancomycin in the ED and this was continued on the floor. She was later switched to clindamycin and Zosyn. Blood cultures remain negative. The wound never drained there was nothing to culture there. Her leg did continue to improve while here as there was some red streaking noted on admission. That is absent today. DVT workup was grossly negative. Her white count did trend down all of this may be skewed by her MS history. CRP trended down as well although this could be skewed also. General surgeon, Dr. Cain, did see the patient and surgery was not indicated. CT scan showed no abscess and only swelling in her leg. She did see PT and OT with no concerns noted. She was found to have an A1c of 6.3 and be a prediabetic. She is obese and lifestyle modifications were discussed with her. She also was noted to be hypertensive with a blood pressure in the 160s over 90s. She started on lisinopril, Norvasc, and HCTZ with good response. These will be continued at home on discharge. While here she was noted to have a hypersensitivity reaction although cause was not found. His believe this is not due to her medications. It did resolve rapidly. She'll be discharged today on 7 more days of 300 mg by mouth clindamycin. She will also get a probiotic. She started on 500 mg by mouth metformin. She'll also be discharged on 10 mg by mouth at bedtime amlodipine along with Toprol 0.5 mg by mouth twice a day HCTZ and 20 mg by mouth daily lisinopril. She was instructed to follow-up with her PCP within one week. She reports she has not had a PCP since hers left town and she would like to see Risa Wilson PA-C as a primary care provider. Should symptoms return or worsen she should return to the ED. She was also advised she can follow-up with Dr. Cain if needed. She' ll be discharged home today. - Patient Instructions Diet: Heart Healthy Diet, Diabetic Diet, Weight Loss Diet Activity: As Tolerated Driving: May Drive Today Showering/Bathing: May Shower Wound/Incision Care: Keep Operative Site/Wound Site Clean and Dry Notify Provider of: Fever, Increased Pain, Swelling and Redness, Drainage, Nausea and/or Vomiting Other/Special Instructions: - Please take all new medications as directed. - Resume all home medications and routine home activities as tolerated. - Recommend life style modifications. - You must take Metformin with breakfast or food. - Call or follow up with your PCP for any questions or concerns after discharge. - Follow up with your PCP in 1 week. - Come back or seek immediate care should your symptoms persist or get worse - Discharge Plan *PRESCRIPTION DRUG MONITORING PROGRAM REVIEWED*: Not Applicable *COPY OF PRESCRIPTION DRUG MONITORING REPORT IN PATIENT JUAN CARLOS: Not Applicable Prescriptions/Med Rec: amLODIPine Besylate [Norvasc] 10 mg PO BEDTIME #30 tablet Clindamycin HCl 300 mg PO Q6H #28 capsule hydroCHLOROthiazide [Hydrochlorothiazide] 12.5 mg PO BIDDIURETIC #60 cap Lisinopril [Prinivil] 20 mg PO DAILY #30 tablet metFORMIN HCl [Fortamet] 500 mg PO ASDIRECTED #60 tab.er.24 Saccharomyces Boulardii [Florastor] 250 mg PO Q6H #28 capsule Home Medications: Home Meds Acetaminophen/HYDROcodone [[place] 325-5 MG] 1 tab PO BEDTIME PRN 12/08/18 [ History] Famotidine 0 mg PO BEDTIME 12/08/18 [History] Loratadine [Allergy Relief] 10 mg PO DAILY 12/08/18 [History] Clindamycin HCl 300 mg PO Q6H #28 capsule 12/11/18 [Rx] Lisinopril [Prinivil] 20 mg PO DAILY #30 tablet 12/11/18 [Rx] Saccharomyces Boulardii [Florastor] 250 mg PO Q6H #28 capsule 12/11/18 [Rx] amLODIPine Besylate [Norvasc] 10 mg PO BEDTIME #30 tablet 12/11/18 [Rx] hydroCHLOROthiazide [Hydrochlorothiazide] 12.5 mg PO BIDDIURETIC #60 cap [Rx] metFORMIN HCl [Fortamet] 500 mg PO ASDIRECTED #60 tab.er.24 12/11/18 [Rx] Oxygen Therapy Mode: Room Air Patient Handouts: Prediabetes, Cellulitis, Adult, [id number], Hypertension, Wwur-[id number], Obesity, Adult, [id number] Referrals: Risa Wilson PA-C [Ordering Only Provider] - 12/18/18 3:00 pm (Please follow up with Risa Wilson on December 18 at 300pm.) - Discharge Summary/Plan Comment DC Time >30 min.: Yes (45 mins ) - General Info Date of Service: 12/11/18 Subjective Update: In to see Keya with Dr. Chauhan. She is lying in bed and her is at bedside. She is doing well and reports she feels good. Her leg has improved. She has no concerns. No nursing concerns. Updated on plan of care after discharge. She reports she would like to see Risa Wilson PA-C as a PCP after discharge and appointment will be made with her. She will be discharged today. Functional Status: Reports: Pain Controlled, Tolerating Diet, Ambulating, Urinating. Denies: New Symptoms - Review of Systems General: Reports: No Symptoms. Denies: Fever, Weakness, Fatigue, Malaise, Chills HEENT: Reports: No Symptoms. Denies: Headaches, Sore Throat Pulmonary: Reports: No Symptoms. Denies: Shortness of Breath, Pleuritic Chest Pain, Cough, Sputum, Wheezing Cardiovascular: Reports: No Symptoms. Denies: Chest Pain, Palpitations, Dyspnea on Exertion, Edema, Lightheadedness Gastrointestinal: Reports: No Symptoms. Denies: Abdominal Pain, Constipation, Diarrhea, Nausea, Vomiting Genitourinary: Reports: No Symptoms. Denies: Pain Musculoskeletal: Reports: No Symptoms Skin: Reports: No Symptoms. Denies: Cyanosis Neurological: Reports: No Symptoms. Denies: Trouble Speaking, Difficulty Walking, Gait Disturbance Psychiatric: Reports: No Symptoms - Patient Data Vitals - Most Recent: Last Vital Signs Temp 98.2 F 12/11/18 11:15 Pulse 64 12/11/18 11:15 Resp 16 12/11/18 11:15 BP 130/69 12/11/18 11:15 Pulse Ox 90 L 12/11/18 11:15 Weight - Most Recent: 230 lb I&O - Last 24 hours: Intake & Output 12/10/18 12/11/18 12/11/18 22:59 06:59 14:59 Intake Total 790 344 Output Total 2747 6950 Balance -960 -2350 Lab Results - Last 24 hrs: Laboratory Results - last 24 hr 12/10/18 12/11/18 12/11/18 Range/Units 21:10 05:00 05:00 WBC 9.98 (3.98-10.04) K/mm3 RBC 4.60 (3.98-5.22) M/mm3 Hgb 13.3 (11.2-15.7) gm/L Hct 40.2 (34.1-44.9) % MCV 87.4 (79.4-94.8) fl MCH 28.9 (25.6-32.2) pg MCHC 33.1 (32.2-35.5) g/dl RDW Std Deviation 44.1 (36.4-46.3) fL Plt Count 379 H (182-369) K/mm3 MPV 10.9 (9.4-12.3) fl Neut % (Auto) 55.5 (34.0-71.1) % Lymph % (Auto) 24.5 (19.3-51.7) % [place] % (Auto) 15.0 H (4.7-12.5) % Eos % (Auto) 2.4 (0.7-5.8) Baso % (Auto) 0.7 (0.1-1.2) % Neut # (Auto) 5.53 (1.56-6.13) K/mm3 Lymph # (Auto) 2.45 (1.18-3.74) K/mm3 [place] # (Auto) 1.50 H (0.24-0.36) K/mm3 Eos # (Auto) 0.24 (0.04-0.36) K/mm3 Baso # (Auto) 0.07 (0.01-0.08) K/mm3 Manual Slide Review Normal smear Sodium 139 (136-145) mEq/L Potassium 3.7 (3.5-5.1) mEq/L Chloride 103 (98-107) mEq/L Carbon Dioxide 26 (21-32) mEq/L Anion Gap 13.7 (5-15) BUN 17 (7-18) mg/dL Creatinine 0.8 (0.55-1.02) mg/dL Est Cr Clr Drug Dosing 90.53 mL/min Estimated GFR (MDRD) > 60 (>60) mL/min BUN/Creatinine Ratio 21.3 H (14-18) Glucose 117 H (74-106) mg/dL Calcium 8.5 (8.5-10.1) mg/dL Magnesium 1.9 (1.8-2.4) mg/dl C-Reactive Protein 0.7 (<1.0) mg/dL Urine Color Mayflower H (Yellow) Urine Appearance Clear (Clear) Urine pH 7.0 (5.0-8.0) Ur Specific [place] 1.020 (1.005-1.030) Urine Protein Negative (Negative) Urine Glucose (UA) Negative (Negative) Urine Ketones Negative (Negative) Urine Occult Blood 3+ H (Negative) Urine Nitrite Negative (Negative) Urine Bilirubin Negative (Negative) Urine Urobilinogen 0.2 (0.2-1.0) Ur Leukocyte Esterase Negative (Negative) Urine RBC 20-30 H (0-5) /hpf Urine WBC 10-20 H (0-5) /hpf Ur Epithelial Cells Not seen (0-5) /hpf Urine Bacteria Not seen (FEW) /hpf Urine Mucus Not seen (FEW) /hpf VON Results - Last 24 hrs: Microbiology 12/08/18 18:27 Aerobic Blood Culture - Preliminary Blood - Venous - Lab Draw NO GROWTH AFTER 2 DAYS Anaerobic Blood Culture - Preliminary NO GROWTH AFTER 2 DAYS 12/08/18 05:40 Aerobic Blood Culture - Preliminary Blood - Venous NO GROWTH AFTER 2 DAYS Anaerobic Blood Culture - Preliminary NO GROWTH AFTER 2 DAYS Med Orders - Current: Current Medications Acetaminophen (Tylenol) 650 mg PO Q4H PRN PRN Reason: Pain (Mild 1-3)/fever Last Admin: 12/10/18 13:36 Dose: 650 mg Hydrocodone Bitart/Acetaminophen ([place] 325-5 Mg) 1 tab PO BEDTIME PRN PRN Reason: Pain Albuterol/Ipratropium (Duoneb 3.0-0.5 Mg/3 Ml) 3 ml NEB Q4H PRN PRN Reason: Shortness Of Breath/wheezing Amlodipine Besylate (Norvasc) 10 mg PO BEDTIME [facility] Last Admin: 12/10/18 20:14 Dose: 10 mg Bisacodyl (Dulcolax) 5 mg PO DAILY PRN PRN Reason: Constipation Docusate Sodium (Colace) 100 mg PO BID PRN PRN Reason: Constipation Enoxaparin Sodium (Lovenox) 40 mg SUBCUT DAILY [facility] Last Admin: 12/11/18 11:14 Dose: 40 mg Hydralazine HCl (Apresoline) 20 mg IVPUSH Q4H PRN PRN Reason: Hypertension Last Admin: 12/09/18 20:00 Dose: 20 mg Hydrochlorothiazide (Hydrochlorothiazide) 12.5 mg PO BIDDIURETIC [facility] Last Admin: 12/11/18 11:14 Dose: 12.5 mg Hydromorphone HCl (Dilaudid) 0.25 mg IVPUSH Q2H PRN PRN Reason: Pain (severe 7-10) Piperacillin Sod/Tazobactam (Sod 4.5 gm/ Sodium Chloride) 100 mls @ 25 mls/hr IV Q8H [facility] Last Admin: 12/11/18 11:10 Dose: 25 mls/hr Clindamycin Phosphate 600 mg/ (Sodium Chloride) 104 mls @ 100 mls/hr IV Q6H [facility] Last Admin: 12/11/18 06:08 Dose: 100 mls/hr Lisinopril (Prinivil) 20 mg PO DAILY [facility] Last Admin: 12/11/18 11:13 Dose: 20 mg Loratadine (Claritin) 10 mg PO DAILY [facility] Last Admin: 12/11/18 11:13 Dose: 10 mg Lorazepam (Ativan) 2 mg IVPUSH Q4H PRN PRN Reason: Seizures Lorazepam (Ativan) 1 mg IV Q6H PRN PRN Reason: Anxiety Last Admin: 12/09/18 21:39 Dose: 1 mg Magnesium Sulfate (Pharmacy To Dose - Magnesium Replacement) 1 dose .XX ASDIRECTED [facility] Metoprolol Tartrate (Lopressor) 5 mg IVPUSH Q4H PRN PRN Reason: Tachycardia Last Admin: 12/09/18 20:59 Dose: 5 mg Ondansetron HCl (Zofran) 4 mg IV Q6H PRN PRN Reason: Nausea/Vomiting Potassium Chloride (Pharmacy To Dose - Potassium Replacement) 1 dose .XX ASDIRECTED [facility] Saccharomyces Boulardii (Florastor) 250 mg PO BID [facility] Last Admin: 12/11/18 11:13 Dose: 250 mg Senna/Docusate Sodium (Senna Plus) 1 tab PO BID PRN PRN Reason: Constipation Temazepam (Restoril) 15 mg PO BEDTIME PRN PRN Reason: Sleep Last Admin: 12/10/18 23:40 Dose: 15 mg Discontinued Medications Amlodipine Besylate (Norvasc) 5 mg PO ONETIME ONE Stop: 12/10/18 11:10 Last Admin: 12/10/18 11:49 Dose: 5 mg Dexamethasone (Dexamethasone) 4 mg IVPUSH Q12H [facility] Stop: 12/09/18 09:16 Last Admin: 12/09/18 08:56 Dose: 4 mg Famotidine (Pepcid) 20 mg IVPUSH ONETIME ONE Stop: 12/08/18 21:11 Last Admin: 12/08/18 21:41 Dose: 20 mg Hydrochlorothiazide (Hydrochlorothiazide) 25 mg PO ONETIME ONE Stop: 12/10/18 11:10 Last Admin: 12/10/18 11:53 Dose: 25 mg Sodium Chloride (Normal Saline) 1,000 mls @ 999 mls/hr IV ASDIRECTED [facility] Last Admin: 12/08/18 18:33 Dose: 999 mls/hr Vancomycin HCl 2 gm/ Sodium (Chloride) 250 mls @ 250 mls/hr IV ONETIME ONE Stop: 12/08/18 19:01 Last Admin: 12/08/18 21:00 Dose: Not Given Sodium Chloride (Normal Saline) Confirm Administered Dose 500 mls @ as directed .ROUTE .STK-MED ONE Stop: 12/08/18 18:08 Last Admin: 12/08/18 18:36 Dose: Not Given Vancomycin HCl 2 gm/ Sodium (Chloride) 500 mls @ 250 mls/hr IV ONETIME ONE Stop: 12/08/18 20:14 Last Admin: 12/08/18 18:34 Dose: 250 mls/hr Vancomycin HCl 1 gm/Vancomycin HCl 250 mg/ Sodium Chloride 250 mls @ 166.667 mls/hr IV Q8H [facility] Last Admin: 12/09/18 03:54 Dose: 166.667 mls/hr Vancomycin HCl 1 gm/Vancomycin HCl 250 mg/ Sodium Chloride 250 mls @ 166.667 mls/hr IV Q12H [facility] Last Admin: 12/10/18 03:19 Dose: 166.667 mls/hr Sodium Chloride (Normal Saline) 250 mls @ 499.445 mls/hr IV .BOLUS PRN PRN Reason: 250ML BEFORE AND AFTER CT SCAN Stop: 12/10/18 23:59 Last Admin: 12/10/18 20:12 Dose: 499.445 mls/hr Iopamidol (Isovue-370 (76%)) 200 ml IV ONETIME ONE Stop: 12/10/18 20:28 Last Admin: 12/10/18 20:55 Dose: 200 ml Levofloxacin (Levaquin) 500 mg PO Q24H [facility] Lisinopril (Prinivil) 10 mg PO ONETIME ONE Stop: 12/10/18 11:10 Last Admin: 12/10/18 11:53 Dose: 10 mg Saccharomyces Boulardii (Florastor) 250 mg PO DAILY [facility] Last Admin: 12/10/18 08:54 Dose: 250 mg Temazepam (Restoril) 7.5 mg PO BEDTIME PRN PRN Reason: Sleep Last Admin: 12/08/18 21:54 Dose: 7.5 mg Vancomycin HCl (Pharmacy To Dose - Vancomycin) 1 dose .XX ASDIRECTED [facility] Vancomycin HCl (Pharmacy To Dose - Vancomycin) 1 dose .XX Q12H [facility] Vancomycin HCl (Pharmacy To Dose - Vancomycin) 1 dose .XX Q12H [facility] - Exam Quality Assessment: Reports: DVT Prophylaxis General: Reports: Alert, Oriented, Cooperative, No Acute Distress HEENT: Reports: Pupils Equal, Pupils Reactive, EOMI, Mucous Membr. Moist/[place] Neck: Reports: Supple, Trachea Midline, No JVD Lungs: Reports: Clear to Auscultation, Normal Respiratory Effort Cardiovascular: Reports: Regular Rate, Regular Rhythm GI/Abdominal Exam: Normal Bowel Sounds, Soft, Non-Tender, No Organomegaly, No Distention (Female) Exam: Deferred Rectal (Female) Exam: Deferred Back Exam: Reports: Normal Inspection, Full Range of Motion Extremities: Normal Range of Motion, Non-Tender, No Pedal Edema, Normal Capillary Refill Skin: Reports: Warm, Dry, Intact Wound/Incisions: Reports: Healing Well, No Drainage, Erythema Improving Neurological: Reports: No New Focal Deficit Psy/Mental Status: Reports: Alert, Normal Affect, Normal Mood
== END 2018-12-11 15:33 | disposition home or self-care (01) ==
LOC: JD.ED 16:13 → JD.MS 19:23
PROVIDERS: ADMIT Internal Medicine; ATTEND Internal Medicine
DX: L03.115 Cellulitis of right lower limb (principal); I10 Essential (primary) hypertension; R73.03 Prediabetes; E66.9 Obesity, unspecified; G35 Multiple sclerosis; H54.7 Unspecified visual loss; K21.9 Gastro-esophageal reflux disease without esophagitis; G43.909 Migraine, unspecified, not intractable, without status migrainosus; F41.9 Anxiety disorder, unspecified; F32.9 Major depressive disorder, single episode, unspecified; G62.9 Polyneuropathy, unspecified; Z87.891 Personal history of nicotine dependence; Z79.899 Other long term (current) drug therapy; Z88.0 Allergy status to penicillin; Z88.8 Allergy status to other drugs, medicaments and biological substances; Z88.2 Allergy status to sulfonamides
CPT/HCPCS: 36415; 71045; 73590; 73610; 73701; 80048; 80053; 81001; 83036; 83605; 83735; 84703; 85025; 85379; 85610; 86140; 87040; 93971; 96365; 96366; 96367; 96372; 96375; 96376; 97116; 97161; 97165; 97530; 99285; A9270; G0378; J0360; J1100; J1650; J2060; J2543; J3370; J3490; J7030; J7040; J7050; Q9967; 99284

== ENCOUNTER 2018-12-20 21:30 | Emergency (ER) | payer OTHER ==
[2018-12-20 21:54] VITALS: BP 136/62
[2018-12-20] MEDS ORDERED: Sodium Chloride 0.9% 10 ML Syringe FLUSH PRN (22:07)
[2018-12-20] MEDS ORDERED: Vancomycin 2 GM in Sodium Chloride 0.9% 500 ML IV ONE (22:49)
--- NOTE | 2018-12-20 23:11 | EDM.PDOC ---
ED HPI GENERAL MEDICAL PROBLEM - General Chief Complaint: Skin Complaint Stated Complaint: CELULITUS RIGHT LEG LOW FEVER Time Seen by Provider: 12/20/18 21:54 Source of Information: Reports: Patient History Limitations: Reports: No Limitations - History of Present Illness INITIAL COMMENTS - FREE TEXT/NARRATIVE: The patient presents with right leg pain, edema and erythema. This has been an ongoing problem for a month. She has been on antibiotics and was admitted over a week ago. She took her last clindamycin yesterday. She says the redness and pain never really went away. She feels like she has been running a low grade fever for a couple days. She has no new injury to her leg. She has no chest pain or shortness of breath. She had an US done that did not show any DVT a week ago. Onset: Gradual Duration: Week(s): (4) Location: Reports: Lower Extremity, Right (lower leg) Quality: Reports: Sharp Severity: Moderate Improves with: Reports: Immobilization Worsens with: Reports: Movement Associated Symptoms: Reports: No Other Symptoms Right Lower Leg Pain Score (Numeric/FACES): 7 - Related Data Allergies Allergy/AdvReac Type Severity Reaction Status Date / Time chlorhexidine Allergy Rash Verified 12/20/18 21:52 ketoconazole Allergy Rash Verified 12/20/18 21:52 Penicillins AdvReac Vomiting Verified 12/20/18 21:52 sulfamethoxazole AdvReac Vomiting Verified 12/20/18 21:52 [From Bactrim] trimethoprim [From Bactrim] AdvReac Vomiting Verified 12/20/18 21:52 Home Meds: Home Meds Famotidine 0 mg PO BEDTIME 12/08/18 [History] Loratadine [Allergy Relief] 10 mg PO DAILY 12/08/18 [History] Saccharomyces Boulardii [Florastor] 250 mg PO Q6H #28 capsule 12/11/18 [Rx] metFORMIN HCl [Fortamet] 500 mg PO ASDIRECTED #60 tab.er.24 12/11/18 [Rx] Cephalexin [Keflex] 500 mg PO QID #40 capsule 12/21/18 [Rx] Past Medical History HEENT History: Reports: Hard of Hearing, Impaired Vision Other HEENT History: wears glasses, can't hear out of right ear Gastrointestinal History: Reports: GERD Genitourinary History: Reports: Renal Calculus, UTI, Recurrent Musculoskeletal History: Reports: Back Pain, Chronic Neurological History: Reports: Concussion, Migraines, MS Psychiatric History: Reports: Anxiety, Depression, Panic Attack, PTSD Endocrine/Metabolic History: Reports: Obesity/BMI 30+ Dermatologic History: Reports: Cellulitis, Other (See Below) Other Dermatologic History: 12/08/18 cellulitis right leg - Infectious Disease History Infectious Disease History: Reports: Chicken Pox, Influenza - Past Surgical History HEENT Surgical History: Reports: Oral Surgery, Tonsillectomy, Other (See Below) Other HEENT Surgeries/Procedures: dog bit to upper lip, plastic surgery to repair GI Surgical History: Reports: Appendectomy Female Surgical History: Reports: None Endocrine Surgical History: Reports: None Neurological Surgical History: Reports: Laminectomy Musculoskeletal Surgical History: Reports: None Dermatological Surgical History: Reports: None Social & Family History - Family History Family Medical History: Unobtainable - Tobacco Use Smoking Status *Q: Former Smoker Used Tobacco, but Quit: Yes Month/Year Tobacco Last Used: 08/1997 - Caffeine Use Caffeine Use: Reports: Soda Other Caffeine Use: one can mellow yellow a day - Recreational Drug Use Recreational Drug Use: No - Living Situation & Occupation Living situation: Reports: , with Spouse 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) ED ROS GENERAL - Review of Systems Review Of Systems: See Below Constitutional: Reports: No Symptoms HEENT: Reports: No Symptoms Respiratory: Reports: No Symptoms Cardiovascular: Reports: No Symptoms Endocrine: Reports: No Symptoms GI/Abdominal: Reports: No Symptoms : Reports: No Symptoms Musculoskeletal: Reports: Other (Right leg has erythema and edema) ED EXAM, SKIN/RASH Exam: See Below Exam Limited By: No Limitations General Appearance: Alert, No Apparent Distress Ears: Normal External Exam Nose: Normal Inspection Head: Atraumatic, Normocephalic Neck: Normal Inspection Respiratory/Chest: No Respiratory Distress, Lungs Clear, Normal Breath Sounds Cardiovascular: Regular Rate, Rhythm, No Edema, No Murmur GI/Abdominal: Soft, Non-Tender, No Organomegaly, No Mass Back Exam: Normal Inspection Extremities: Other (Erythema to the right foot and anterior lower leg. With edema. Good sensation and pulses distally.) Course - Vital Signs Last Recorded V/S: Last Vital Signs Temp 97.4 F 12/20/18 21:50 Pulse 66 12/20/18 21:50 Resp 18 12/20/18 21:50 BP 136/62 12/20/18 21:50 Pulse Ox 99 12/20/18 21:50 - Orders/Labs/Meds Orders: Active Orders 24 hr Category Date Time Status Peripheral IV Care [RC] . DIRECTED Care 12/20/18 22:07 Active Sodium Chloride 0.9% [Saline Flush] Med 12/20/18 22:07 Active 10 ml FLUSH ASDIRECTED PRN Vancomycin 2 gm Med 12/20/18 22:49 Active Sodium Chloride 0.9% [Normal Saline] 500 ml IV ONETIME Peripheral IV Insertion Adult [OM.PC] Routine Oth 12/20/18 22:07 Ordered Medication Orders Vancomycin HCl 2 gm/ Sodium (Chloride) 500 mls @ 250 mls/hr IV ONETIME ONE Stop: 12/21/18 00:48 Last Admin: 12/20/18 22:50 Dose: 250 mls/hr Sodium Chloride (Saline Flush) 10 ml FLUSH ASDIRECTED PRN PRN Reason: Keep Vein Open Last Admin: 12/20/18 22:51 Dose: 10 ml Labs: Laboratory Tests 12/20/18 12/20/18 Range/Units 22:13 22:13 WBC 10.45 H (3.98-10.04) K/mm3 RBC 4.71 (3.98-5.22) M/mm3 Hgb 13.5 (11.2-15.7) gm/L Hct 40.9 (34.1-44.9) % MCV 86.8 (79.4-94.8) fl MCH 28.7 (25.6-32.2) pg MCHC 33.0 (32.2-35.5) g/dl RDW Std Deviation 42.9 (36.4-46.3) fL Plt Count 318 (182-369) K/mm3 MPV 10.9 (9.4-12.3) fl Neut % (Auto) 54.9 (34.0-71.1) % Lymph % (Auto) 19.4 (19.3-51.7) % Adams % (Auto) 18.9 H (4.7-12.5) % Eos % (Auto) 4.9 (0.7-5.8) Baso % (Auto) 1.1 (0.1-1.2) % Neut # (Auto) 5.74 (1.56-6.13) K/mm3 Lymph # (Auto) 2.03 (1.18-3.74) K/mm3 Adams # (Auto) 1.97 H (0.24-0.36) K/mm3 Eos # (Auto) 0.51 H (0.04-0.36) K/mm3 Baso # (Auto) 0.12 H (0.01-0.08) K/mm3 Manual Slide Review Normal smear Sodium 138 (136-145) mEq/L Potassium 3.7 (3.5-5.1) mEq/L Chloride 103 (98-107) mEq/L Carbon Dioxide 29 (21-32) mEq/L Anion Gap 9.7 (5-15) BUN 15 (7-18) mg/dL Creatinine 0.9 (0.55-1.02) mg/dL Est Cr Clr Drug Dosing 80.47 mL/min Estimated GFR (MDRD) > 60 (>60) mL/min BUN/Creatinine Ratio 16.7 (14-18) Glucose 120 H (74-106) mg/dL Calcium 8.9 (8.5-10.1) mg/dL Total Bilirubin 0.3 (0.2-1.0) mg/dL AST 11 L (15-37) U/L ALT 27 (14-59) U/L Alkaline Phosphatase 117 H (46-116) U/L C-Reactive Protein 1.7 H* (<1.0) mg/dL Total Protein 7.1 (6.4-8.2) g/dl Albumin 3.4 (3.4-5.0) g/dl Globulin 3.7 gm/dL Albumin/Globulin Ratio 0.9 L (1-2) Meds: Medications Generic Name Dose Route Start Last Admin Trade Name Freq PRN Reason Stop Dose Admin Vancomycin HCl 2 gm/ Sodium 500 mls @ 250 mls/hr 12/20/18 22:49 12/20/18 22: 50 Chloride IV 12/21/18 00:48 250 mls/hr ONETIME ONE Administration Sodium Chloride 10 ml 12/20/18 22:07 12/20/18 22:51 Saline Flush FLUSH 10 ml ASDIRECTED PRN Administration Keep Vein Open Discontinued Medications Generic Name Dose Route Start Last Admin Trade Name Davina PRN Reason Stop Dose Admin Hydromorphone HCl 0.5 mg 12/20/18 23:24 12/20/18 23:44 Dilaudid IVPUSH 12/20/18 23:25 0.5 mg ONETIME ONE Administration - Re-Assessments/Exams Free Text/Narrative Re-Assessment/Exam: 12/20/18 23:13 I ordered an IV saline lock, vancomycin 2 grams IV and labs. 12/20/18 23:14 Her WBC was elevated at 10.45. Her CRP was elevated at 1.7. Her glucose was elevated at 120. 12/20/18 23:14 I initially was going to admit her so I ordered the vancomycin. The WBC and CRP are reassuring. I will get her on keflex and I feel she may need to see infections disease. I will have her follow up with her doctor to set that up. Departure - Departure Time of Disposition: 00:30 Disposition: Home, Self-Care 01 Condition: Good Clinical Impression: Cellulitis, leg Qualifiers: Laterality: right Qualified Code(s): L03.115 - Cellulitis of right lower limb - Discharge Information *PRESCRIPTION DRUG MONITORING PROGRAM REVIEWED*: No *COPY OF PRESCRIPTION DRUG MONITORING REPORT IN PATIENT JUAN CARLOS: No Prescriptions: Cephalexin [Keflex] 500 mg PO QID #40 capsule Referrals: Risa Wilson PA-C [Primary Care Provider] - Forms: ED Department Discharge, ED Return to Work/School Form Additional Instructions: Take the keflex 4 times per day for 10 days. Elevate your leg as much as you can for 2 days. Use a warm compress on your leg 3 times per day for 5 days. Follow up with Dr Mcnally the infections disease doctor. Please return if you are worse. - My Orders Last 24 Hours: My Active Orders 12/20/18 22:07 Peripheral IV Care [RC] . DIRECTED Sodium Chloride 0.9% [Saline Flush] 10 ml FLUSH ASDIRECTED PRN Peripheral IV Insertion Adult [OM.PC] Routine 12/20/18 22:49 Vancomycin 2 gm Sodium Chloride 0.9% [Normal Saline] 500 ml IV ONETIME - Assessment/Plan Last 24 Hours: My Active Orders 12/20/18 22:07 Peripheral IV Care [RC] . DIRECTED Sodium Chloride 0.9% [Saline Flush] 10 ml FLUSH ASDIRECTED PRN Peripheral IV Insertion Adult [OM.PC] Routine 12/20/18 22:49 Vancomycin 2 gm Sodium Chloride 0.9% [Normal Saline] 500 ml IV ONETIME
[2018-12-20] MEDS ORDERED: HYDROmorphone 1 MG/ML Syringe IVPUSH ONE (23:24)
== END 2018-12-21 01:00 | disposition home or self-care (01) ==
LOC: JD.ED 21:30
DX: L03.115 Cellulitis of right lower limb (principal); K21.9 Gastro-esophageal reflux disease without esophagitis; F41.9 Anxiety disorder, unspecified; F32.9 Major depressive disorder, single episode, unspecified; F43.10 Post-traumatic stress disorder, unspecified; Z79.899 Other long term (current) drug therapy; Z88.1 Allergy status to other antibiotic agents; Z87.891 Personal history of nicotine dependence; Z88.8 Allergy status to other drugs, medicaments and biological substances; Z88.2 Allergy status to sulfonamides; Z88.0 Allergy status to penicillin
CPT/HCPCS: 36415; 80053; 85025; 86140; 96365; 96366; 96375; 99283; J1170; J3370; J7050; 99284

== ENCOUNTER 2019-02-08 15:57 | Emergency (ER) | payer OTHER ==
[2019-02-08 16:21] VITALS: BP 159/79
--- NOTE | 2019-02-08 18:55 | US ---
Right lower extremity deep venous ultrasound: Duplex and color flow imaging was obtained of the right common femoral, superficial femoral and popliteal teal veins. Posterior tibial and peroneal veins not optimally seen due to patient body habitus as well as swelling. Findings: Normal phasic flow, augmentation and compression is seen. Calf veins appear to show flow but other evaluation is impossible. Impression: 1. No evidence of definite venous thrombosis within the right lower extremity. Diagnostic code #2
--- NOTE | 2019-02-08 18:59 | EDM.PDOC ---
ED HPI GENERAL MEDICAL PROBLEM - General Chief Complaint: Skin Complaint Stated Complaint: CELLULITIS Time Seen by Provider: 02/08/19 17:00 Source of Information: Reports: Patient, Old Records History Limitations: Reports: No Limitations - History of Present Illness INITIAL COMMENTS - FREE TEXT/NARRATIVE: 43 year old female presents for evaluation and treatment of cellulitis. Patient reports she has had cellulitis to the right lower leg for several months. She has been hospitalized twice - once in [place] and once here - for this. She reports she has been on numerous antibiotics. She just finished a course yesterday. Currently follows with ID for the cellulitis. Patient reports worsening pain and swelling in the right lower leg. Acknowledges the erythema has markedly improved since initially being hospitalized. Patient denies any fevers, chills, nausea or vomiting. Patient has a history of MS. Reports decreased sensation in the right lower leg. - Related Data Allergies Allergy/AdvReac Type Severity Reaction Status Date / Time chlorhexidine Allergy Rash Verified 02/08/19 16:22 ketoconazole Allergy Rash Verified 02/08/19 16:22 Penicillins AdvReac Vomiting Verified 02/08/19 16:22 sulfamethoxazole AdvReac Vomiting Verified 02/08/19 16:22 [From Bactrim] trimethoprim [From Bactrim] AdvReac Vomiting Verified 02/08/19 16:22 Home Meds: Home Meds Fluconazole [Diflucan] 200 mg PO Q3D 02/08/19 [History] Past Medical History HEENT History: Reports: Hard of Hearing, Impaired Vision Other HEENT History: wears glasses, can't hear out of right ear Gastrointestinal History: Reports: GERD Genitourinary History: Reports: Renal Calculus, UTI, Recurrent Musculoskeletal History: Reports: Back Pain, Chronic Neurological History: Reports: Concussion, Migraines, MS Psychiatric History: Reports: Anxiety, Depression, Panic Attack, PTSD Endocrine/Metabolic History: Reports: Obesity/BMI 30+ Dermatologic History: Reports: Cellulitis, Other (See Below) Other Dermatologic History: 12/08/18 cellulitis right leg - Infectious Disease History Infectious Disease History: Reports: Chicken Pox, Influenza - Past Surgical History HEENT Surgical History: Reports: Oral Surgery, Tonsillectomy, Other (See Below) Other HEENT Surgeries/Procedures: dog bit to upper lip, plastic surgery to repair GI Surgical History: Reports: Appendectomy Female Surgical History: Reports: None Endocrine Surgical History: Reports: None Neurological Surgical History: Reports: Laminectomy Musculoskeletal Surgical History: Reports: None Dermatological Surgical History: Reports: None Social & Family History - Family History Family Medical History: Unobtainable - Tobacco Use Smoking Status *Q: Never Smoker Second Hand Smoke Exposure: No - Caffeine Use Caffeine Use: Reports: None Other Caffeine Use: one can mellow yellow a day - Recreational Drug Use Recreational Drug Use: No - Living Situation & Occupation Living situation: Reports: , with Spouse 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) ED ROS GENERAL - Review of Systems Review Of Systems: See Below Constitutional: Denies: Fever, Chills GI/Abdominal: Denies: Nausea, Vomiting Musculoskeletal: Reports: Leg Pain (right), Other (reports right leg swelling) Skin: Reports: Erythema (to the anterior right lower leg) Neurological: Reports: Numbness (chronic from MS) ED EXAM, SKIN/RASH Exam: See Below Exam Limited By: No Limitations General Appearance: Alert, WD/WN, No Apparent Distress Respiratory/Chest: No Respiratory Distress, Lungs Clear, Normal Breath Sounds Cardiovascular: Normal Peripheral Pulses, Regular Rate, Rhythm, No Murmur Peripheral Pulses: 2+: Posterior Tibial (L), Posterior Tibial (R), Dorsalis Pedis (L), Dorsalis Pedis (R) Extremities: No: Janice's Sign Neurological: Alert, Oriented, Normal Cognition Psychiatric: Normal Affect, Normal Mood Skin: Warm, Dry, Normal Color. No: Increased Warmth Location, Skin: Lower Extremity, Right (anterior right lower leg; slight pink discoloration, no tenderness area approximately 15cm x 5 cm) Course - Vital Signs Last Recorded V/S: Last Vital Signs Temp 97.5 F 02/08/19 16:17 Pulse 95 02/08/19 16:17 Resp 16 02/08/19 16:17 BP 159/79 H 02/08/19 16:17 Pulse Ox 97 02/08/19 16:17 - Radiology Interpretation Free Text/Narrative:: right lower leg ultrasound negative for DVT ankle xray shows no acute fractures or dislocations - Re-Assessments/Exams Free Text/Narrative Re-Assessment/Exam: 02/08/19 19:08 Had Jaclyn Nassar PA-C see the patient. She has seen [facility] previously for the cellulitis. Feels the cellulitis is markedly improved. Reviewed the xray and ultrasound results with the patient. Decided against labs as her symptoms have markedly improved and she has no constitutional symptoms at this time. Recommend she discuss further antibiotics with ID as she has been on numerous antibiotics for this. Recommend she consider seeing dermatology as I question if this is cellulitis at this point. Discharge instructions as documented. Departure - Departure Time of Disposition: 19:08 Disposition: Home, Self-Care 01 Condition: Fair Clinical Impression: Erythema - Discharge Information *PRESCRIPTION DRUG MONITORING PROGRAM REVIEWED*: No *COPY OF PRESCRIPTION DRUG MONITORING REPORT IN PATIENT JUAN CARLOS: No Referrals: PCP,None [Primary Care Provider] - Forms: ED Department Discharge Additional Instructions: follow-up with your Infectious disease doctor for further management. Recommend seeing dermatology. Contact ree l[facility] [place] for a scrap burner appointment. Elevate your leg to help with the swelling. Please return to the ER should your symptoms change or worsen.
--- NOTE | 2019-02-09 06:08 | CR ---
Right ankle: Four views of the right ankle were obtained. Comparison: Previous right ankle study of 12/08/18. Soft tissue swelling is identified. Ankle mortise is symmetric. Small plantar spur is noted. No fracture or other bony abnormality is seen. Impression: 1. Soft tissue swelling and small plantar spur. 2. No acute bony abnormality is identified on right ankle exam. Diagnostic code #2
== END 2019-02-08 19:16 | disposition home or self-care (01) ==
LOC: JD.ED 15:57
DX: L53.9 Erythematous condition, unspecified (principal); Z88.0 Allergy status to penicillin; Z88.8 Allergy status to other drugs, medicaments and biological substances; Z88.2 Allergy status to sulfonamides; Z88.1 Allergy status to other antibiotic agents
CPT/HCPCS: 73610-26-RT; 73610-RT; 93971-26-RT; 93971-RT; 99282; 99284-25

== ENCOUNTER 2019-06-26 21:47 | Emergency (ER) | payer SELFPAY ==
[2019-06-26 22:04] VITALS: BP 170/75; PULSE 75
--- NOTE | 2019-06-26 22:40 | EDM.PDOC ---
ED HPI GENERAL MEDICAL PROBLEM - General Chief Complaint: Respiratory Problem Stated Complaint: FEVER/CONGESTION/COUGH Time Seen by Provider: 06/26/19 22:39 Source of Information: Reports: Patient History Limitations: Reports: No Limitations - History of Present Illness INITIAL COMMENTS - FREE TEXT/NARRATIVE: 44-year-old female presents to the ED with acute upper respiratory tract infection for about 5 days. He comes mainly because she can't stop coughing. She cannot fall asleep. She reports sputum is thick and yellowish in color without blood. She is nasally congested ears don't hurt. Note significant pain in her chest except from coughing. She reports her brother was ill and seemed to give her this infection. She reports her throat is sore. Appetite is been decreased from the norm. Her voice is quite croaky from coughing so much. Patient is on medication for her multiple sclerosis and is mildly immunocompromised. Onset: Gradual Onset Date: 06/20/19 Duration: Day(s):, Getting Worse Location: Reports: Neck (Sore throat), Chest (Harsh paroxysmal productive sounding cough.) Quality: Reports: Ache (Bodyache), Burning Severity: Moderate (Burning in the throat.) Improves with: Reports: None Worsens with: Reports: Other Context: Reports: Sick Contact. Denies: Activity, Exercise (Cough is much worse with lying down or exposure to cool night air.), Lifting, Trauma, Other Associated Symptoms: Reports: Chest Pain, Cough, cough w sputum (Upper anterior chest from coughing so much), Fever/Chills, Headaches, Loss of Appetite, Malaise , Shortness of Breath. Denies: Confusion (Father has a sick with upper respiratory tract infection a week ago.), Diaphoresis ( yellowish sputum), Nausea/Vomiting, Rash, Seizure, Syncope, Weakness Treatments COMPLIANCE TESTING ANALYST: Reports: Acetaminophen, NSAIDS (Motrin) - Related Data Allergies Allergy/AdvReac Type Severity Reaction Status Date / Time chlorhexidine Allergy Rash Verified 06/26/19 22:04 ketoconazole Allergy Rash Verified 06/26/19 22:04 Penicillins AdvReac Vomiting Verified 06/26/19 22:04 sulfamethoxazole AdvReac Vomiting Verified 06/26/19 22:04 [From Bactrim] trimethoprim [From Bactrim] AdvReac Vomiting Verified 06/26/19 22:04 Home Meds: Home Meds Furosemide [Lasix] 20 mg PO DAILY 04/18/19 [History] Codeine/Promethazine [Phenergan with Codeine] 15 ml PO Q6HR #300 ml 06/26/19 [Rx ] Doxycycline [Vibramycin] 100 mg PO BID #20 cap 06/26/19 [Rx] Ocrelizumab [Ocrevus] 300 mg IV Q6M 06/26/19 [History] Past Medical History HEENT History: Reports: Hard of Hearing, Impaired Vision Other HEENT History: wears glasses, can't hear out of right ear Cardiovascular History: Reports: None Respiratory History: Reports: None Gastrointestinal History: Reports: GERD Genitourinary History: Reports: Urinary Incontinence RN NEONATAL History: Reports: None Musculoskeletal History: Reports: Back Pain, Chronic Neurological History: Reports: Migraines, MS Psychiatric History: Reports: Anxiety, Depression Endocrine/Metabolic History: Reports: Obesity/BMI 30+ Hematologic History: Reports: None Immunologic History: Reports: None Oncologic (Cancer) History: Reports: None Dermatologic History: Reports: None Other Dermatologic History: 12/08/18 cellulitis right leg - Infectious Disease History Infectious Disease History: Reports: Chicken Pox, Influenza - Past Surgical History Head Surgeries/Procedures: Reports: None HEENT Surgical History: Reports: Oral Surgery, Tonsillectomy GI Surgical History: Reports: Appendectomy, EGD Neurological Surgical History: Reports: Lumbar Spine Social & Family History - Family History Family Medical History: Unobtainable - Tobacco Use Smoking Status *Q: Never Smoker - Caffeine Use Caffeine Use: Reports: Soda Other Caffeine Use: one can mellow yellow a day - Recreational Drug Use Recreational Drug Use: No - Living Situation & Occupation Living situation: Reports: , with Spouse 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 Denies: Wheezing, Pleuritic Chest Pain Cardiovascular: Reports: No Symptoms Endocrine: Reports: Fatigue GI/Abdominal: Reports: Decreased Appetite : Reports: Frequency, Incontinence (Mostly stress-induced. There is some urgency issues with MS is well. She has never gone into full urinary retention.) Musculoskeletal: Reports: Other (Has weakness in her lower extremities) Skin: Reports: No Symptoms ( from MS.) Neurological: Reports: Difficulty Walking (Due to multiple sclerosis.) Psychiatric: Reports: No Symptoms Hematologic/Lymphatic: Reports: No Symptoms ED EXAM, GENERAL - Physical Exam Exam: See Below Exam Limited By: No Limitations General Appearance: Alert, WD/WN, No Apparent Distress, Other (Temperatures 36.8. Pulse 75 and sinus respiratory to 14 BP elevated 170/75. Sats are 96% on room air.) Eye Exam: Bilateral Eye: Normal Inspection Ears: Normal TMs Nose: Other (Nose is very congested with swelling of the medial and superior turbinates bilaterally. Suspect an early nasal polyp on the right side.) Throat/Mouth: Normal Lips, Normal Teeth, Other. No: Normal Voice Head: Atraumatic (Or pharynx is diffusely erythematous I believe from postnasal drip.), Normocephalic Neck: Normal Inspection, Supple, Non-Tender, Full Range of Motion, Lymphadenopathy (L), Lymphadenopathy (R) (Mildly enlarged submandibular node. A enlarged submandibular node which is tender.) Respiratory/Chest: No Respiratory Distress, Lungs Clear, Normal Breath Sounds, No Accessory Muscle Use. No: Respiratory Distress Cardiovascular: Normal Peripheral Pulses, Regular Rate, Rhythm, No Edema, No Gallop, No Murmur, No Rub Peripheral Pulses: 3+: Posterior Tibial (L), Posterior Tibial (R), Dorsalis Pedis (L), Dorsalis Pedis (R) Back Exam: Normal Inspection, Full Range of Motion. No: CVA Tenderness (L), CVA Tenderness (R) Extremities: Normal Inspection, Normal Range of Motion, Non-Tender Neurological: Alert, Oriented, CN II-XII Intact, Normal Cognition Psychiatric: Normal Affect, Normal Mood Skin Exam: Warm, Dry, Intact, Normal Color, No Rash Course - Vital Signs Last Recorded V/S: Last Vital Signs Temp 36.8 C 06/26/19 22:01 Pulse 75 06/26/19 22:01 Resp 14 06/26/19 22:01 BP 170/75 H 06/26/19 22:01 Pulse Ox 96 06/26/19 22:01 - Orders/Labs/Meds Orders: Active Orders 24 hr Category Date Time Status Chest 1V Frontal [CR] Stat Exams 06/26/19 22:39 Taken Meds: Medications Discontinued Medications Generic Name Dose Route Start Last Admin Trade Name Rodq PRN Reason Stop Dose Admin Doxycycline Hyclate 100 mg 06/26/19 23:06 06/26/19 23:15 Vibramycin PO 06/26/19 23:07 100 mg ONETIME ONE Administration Promethazine HCl/Codeine 15 ml 06/26/19 23:05 06/26/19 23:16 Phenergan With Codeine PO 06/26/19 23:06 15 ml ONETIME ONE Administration - Radiology Interpretation Free Text/Narrative:: 44-year-old female presents to the ED with acute onset of upper respiratory tract infection a week ago. Cough is getting worse and the reason she came to the ED is because of severe paroxysmal coughing and can't sleep. Sore throat decreased appetite some fever and chills last few nights. She is mildly immunocompromised due to medication being taken for multiple sclerosis. - Re-Assessments/Exams Free Text/Narrative Re-Assessment/Exam: 06/26/19: 23:10: Portable chest x-ray is within normal limits showing no injury minimal increased infiltrate against the right heart border. No definite pneumonia. Diagnosis is bronchitis. She will be treated with doxepin 100 mg twice a day for 10 days. First dose was 200 mg given in the ED now. She was given 15 mils of codeine with Phenergan suspension for cough relief overnight. Prescription written for the same medication to be taken every 8 hours when necessary as needed for cough relief. Follow-up with personal care physician if not markedly improved in 4 days time. Departure - Departure Time of Disposition: 23:11 Disposition: Home, Self-Care 01 Condition: Fair Clinical Impression: Bronchitis Sinusitis nasal Qualifiers: Sinusitis location: ethmoidal Chronicity: acute Recurrence: non-recurrent Qualified Code(s): J01.20 - Acute ethmoidal sinusitis, unspecified Pharyngitis Qualifiers: Pharyngitis/tonsillitis etiology: other specified organisms Qualified Code(s): J02.8 - Acute pharyngitis due to other specified organisms - Discharge Information *PRESCRIPTION DRUG MONITORING PROGRAM REVIEWED*: No *COPY OF PRESCRIPTION DRUG MONITORING REPORT IN PATIENT JUAN CARLOS: No Prescriptions: Codeine/Promethazine [Phenergan with Codeine] 15 ml PO Q6HR #300 ml Doxycycline [Vibramycin] 100 mg PO BID #20 cap Instructions: Pharyngitis, Sinusitis, Adult, [id number], Acute Bronchitis, Adult Referrals: Risa Wilson PA-C [Primary Care Provider] - Forms: ED Department Discharge Additional Instructions: Evaluation the emergency room tonight in regards to development of upper respiratory tract infection almost a week ago. Associated sinus congestion and nasal congestion sore throat and paroxysmal productive cough. Examination reveals evidence of nasal sinus infection. Middle ear cavities were normal. The oropharynx is quite red and inflamed from infection and postnasal drip. Low lung cochran are clear. Chest x-ray showed no signs of pneumonia. Diagnosis is upper spica tract infection with sinusitis, pharyngitis and bronchitis. Treatment is Motrin 600 mg every 6 hours as needed for fever relief. Cough syrup Phenergan With Codeine 15 mils every 6 hours as needed for cough relief preferably with a little fluid in your stomach. Antibiotic is to be Doxil cycle 100 mg twice daily for the next 10 days. First dose was provided in the ED tonight as well as first dose of cough syrup so that she get some sleep tonight. Expect marked improvement over the next 72 hours. - My Orders Last 24 Hours: My Active Orders 06/26/19 22:39 Chest 1V Frontal [CR] Stat - Assessment/Plan Last 24 Hours: My Active Orders 06/26/19 22:39 Chest 1V Frontal [CR] Stat
[2019-06-26] MEDS ORDERED: Codeine/Promethazine 10-6.25 MG/5 ML Syrup 5 ML UD Cup PO ONE (23:05)
[2019-06-26] MEDS ORDERED: Doxycycline 100 MG Cap PO ONE (23:06)
--- NOTE | 2019-06-27 06:53 | CR ---
Chest: Frontal view of the chest was obtained. Comparison: Prior chest x-ray of 12/10/18. Heart size and mediastinum are normal. Lungs are clear with no acute parenchymal change. Bony structures are grossly intact. Impression: 1. Nothing acute is appreciated on frontal chest x-ray. Diagnostic code #1
== END 2019-06-26 23:21 | disposition home or self-care (01) ==
LOC: JD.ED 21:47
DX: J01.20 Acute ethmoidal sinusitis, unspecified (principal); J02.8 Acute pharyngitis due to other specified organisms; J40 Bronchitis, not specified as acute or chronic; Z88.0 Allergy status to penicillin; Z88.2 Allergy status to sulfonamides; Z88.8 Allergy status to other drugs, medicaments and biological substances; Z88.1 Allergy status to other antibiotic agents; Z79.899 Other long term (current) drug therapy
CPT/HCPCS: 71045; 99283; A9270

== ENCOUNTER 2019-11-25 02:35 | Emergency (ER) | payer MEDICAID ==
[2019-11-25 02:46] VITALS: BP 170/82; PULSE 87
--- NOTE | 2019-11-25 03:16 | EDM.PDOC ---
ED HPI GENERAL MEDICAL PROBLEM - General Chief Complaint: Back Pain or Injury Stated Complaint: BACK PAIN Time Seen by Provider: 11/25/19 02:58 Source of Information: Reports: Patient History Limitations: Reports: No Limitations - History of Present Illness INITIAL COMMENTS - FREE TEXT/NARRATIVE: Mrs. Mccauley is a 44-year-old woman with a past medical history significant for anxiety, depression, MS, and chronic back pain, who now presents to the ED telling me that she has had mid-back pain since Tuesday morning, 11/23/2019. She states that she saw her chiropractor yesterday, 11/24/2019, and was told that she was "really tight". Her back was adjusted, without relief. She states that she has taken Tylenol, ibuprofen, tramadol, and baclofen, all without relief. She would like me to prescribe something to allow her to sleep. She states that she had similar back pain once before, but that her back pain was preceded by a "pop". This time, there was no trauma, injury, or "pop". She states that our gurney is more comfortable than her bed at home, but she denies lying on something hard that might have caused local injury. The patient denies recent fever, chills, cough, dyspnea, chest pain, palpitations, nausea, vomiting, constipation, diarrhea, abdominal pain, urinary symptoms, recent weight gain or weight loss, recent bloody bowel movements or black bowel movements, recent joint aches, headaches, or rashes. The patient's PCP is RANDY Chance. Her Neurologist is Dr. Juliana Gudino. Back Pain Score (Numeric/FACES): 10 - Related Data Allergies Allergy/AdvReac Type Severity Reaction Status Date / Time chlorhexidine Allergy Rash Verified 11/25/19 02:46 ketoconazole Allergy Rash Verified 11/25/19 02:46 Penicillins AdvReac Vomiting Verified 11/25/19 02:46 sulfamethoxazole AdvReac Vomiting Verified 11/25/19 02:46 [From Bactrim] trimethoprim [From Bactrim] AdvReac Vomiting Verified 11/25/19 02:46 Home Meds: Home Meds Ocrelizumab [Ocrevus] 300 mg IV Q6M 06/26/19 [History] FLUoxetine HCl [Prozac] 20 mg PO DAILY 11/25/19 [History] Omeprazole 20 mg PO DAILY 11/25/19 [History] diazePAM [Valium] 1 tab PO Q8H PRN #10 tablet 11/25/19 [Rx] Past Medical History HEENT History: Reports: Hard of Hearing (deaf right ear), Impaired Vision Other HEENT History: wears glasses Gastrointestinal History: Reports: GERD Genitourinary History: Reports: Urinary Incontinence (stress incontinence) Neurological History: Reports: Migraines (untreated), MS Psychiatric History: Reports: Anxiety, Depression Endocrine/Metabolic History: Reports: Obesity/BMI 30+ - Infectious Disease History Infectious Disease History: Reports: Chicken Pox, Influenza - Past Surgical History HEENT Surgical History: Reports: Oral Surgery (wisdom teeth extraction), Tonsillectomy GI Surgical History: Reports: Appendectomy, EGD (x 2) Neurological Surgical History: Reports: Lumbar Spine (laminectomy) Dermatological Surgical History: Reports: Other (See Below) (Pilonidal cyst excision) Social & Family History - Family History Family Medical History: Unobtainable - Tobacco Use Smoking Status *Q: Never Smoker - Caffeine Use Caffeine Use: Reports: Soda Other Caffeine Use: one can mellow yellow a day - Alcohol Use Alcohol Use History: Yes Alcohol Use Frequency: Socially - Recreational Drug Use Recreational Drug Use: No - Living Situation & Occupation Living situation: Reports: , with Spouse 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 Musculoskeletal: Reports: Back Pain ED EXAM, UPPER BACK/NECK PAIN - Physical Exam Exam: See Below Exam Limited By: No Limitations General Appearance: Alert, WD/WN, No Apparent Distress (does not appear to be in pain) Eye Exam: Bilateral Eye: EOMI, Normal Inspection Ears Exam: Normal External Exam, Hearing Grossly Normal Nose Exam: Normal Inspection Throat/Mouth Exam: Normal Inspection, Normal Lips, Normal Voice, No Airway Compromise Head Exam: Atraumatic, Normocephalic Neck Exam: Non-Tender, Normal Inspection Cardiovascular/Respiratory: Regular Rate, Rhythm, No M/R/G, Normal Peripheral Pulses, No JVD, Normal Breath Sounds, No Respiratory Distress GI/Abdominal: Normal Bowel Sounds, Soft, Non-Tender, No Organomegaly, No Distention, No Abnormal Bruit, No Mass (Female) Exam: Deferred Rectal (Female) Exam: Deferred Back Exam: Normal Inspection, Full Range of Motion (moves easily), Vertebral Tenderness (The patient states that she is extremely tender to palpation of the thoracic spinous processes). No: Paraspinal Tenderness Extremities: Normal Inspection, Normal Range of Motion, No Pedal Edema, Normal Capillary Refill Neurologic: No Motor/Sensory Deficits, Alert, Oriented x 3 Psychiatric: Normal Affect Skin Exam: Normal Color, Warm/Dry Course - Vital Signs Last Recorded V/S: Last Vital Signs Temp 36.9 C 11/25/19 02:43 Pulse 87 11/25/19 02:43 Resp 16 11/25/19 02:43 BP 170/82 H 11/25/19 02:43 Pulse Ox 95 11/25/19 02:43 - Orders/Labs/Meds Orders: Active Orders 24 hr Category Date Time Status Thoracic Spine 3V [CR] Stat Exams 11/25/19 03:09 Ordered - Re-Assessments/Exams Free Text/Narrative Re-Assessment/Exam: 11/25/19 03:10 I am confused by the huge disparity of the patient telling me that she is in extreme pain, with no relief from Tylenol, ibuprofen, tramadol, or baclofen, but at the same time, she moves extremely easily, virtually jumping out of bed to retrieve her cell phone when I asked if she could get the name of the muscle relaxant that she was taking, then telling me that she has excruciating pain to even the mildest palpation of her midline thoracic spinous processes. I pointed out to the patient that unless there is an anatomic problem to the spinous process, such as a fracture, that spinous processes, being a bony prominence, should not be tender to palpation, any more than the bony prominence of one's elbow. The patient insists, however, that the spinous processes of her thoracic spine are indeed tender. Moreover, she denies tenderness to the thoracic paraspinous musculature. I can only conclude, therefore, that there is indeed an anatomic problem to the patient's thoracic spine, therefore I recommended x-rays of the thoracic spine. 11/25/19 03:25 3-view radiographs of the thoracic spine appear to demonstrate some degenerative changes, including disc space narrowing and minor endplate bone spurs. No spinous process fractures. Formal read per the Radiologist pending. 11/25/19 03:33 X-ray results discussed with the patient. I am at somewhat of a loss to explain her pain, but asked whether or not it might be stress related. The patient acknowledges that it might be. I will therefore write a prescription for a few days of diazepam to see if that helps. I explained to the patient that because she drove herself here, I cannot give her diazepam now, that she will have to fill a prescription at the [facility], and that they will only be open between noon and 4:00 this afternoon. The patient was agreeable. Departure - Departure Time of Disposition: 03:35 Disposition: Home, Self-Care 01 Condition: Good Clinical Impression: Pain in thoracic spine - Discharge Information *PRESCRIPTION DRUG MONITORING PROGRAM REVIEWED*: Not Applicable *COPY OF PRESCRIPTION DRUG MONITORING REPORT IN PATIENT JUAN CARLOS: Not Applicable Prescriptions: diazePAM [Valium] 1 tab PO Q8H PRN #10 tablet PRN Reason: Pain Referrals: Risa Wilson PA-C [Primary Care Provider] - Juliana Gudino MD [Ordering Only Provider] - Additional Instructions: You were seen in the emergency room for mid-back pain since Tuesday. Work-up in the ER included x-rays of your thoracic spine, which showed some arthritic changes, but no injuries that would explain your symptoms. You have been prescribed the sedative diazepam (Valium). You can fill the prescription at the [facility], located just south and across the [address] from [facility]. The pharmacy will be open between noon and 4:00 this afternoon. Take 1 tablet of diazepam up to every 8 hours, as needed for pain. Diazepam will likely make you quite sleepy, so do not drive for at least 12 hours after taking it. Never combine diazepam with a narcotic, such as tramadol , or alcohol. If your symptoms persist, please follow-up with your PCP, RANDY Chance. If any other problems, please do not hesitate to return to the ER. Sepsis Event Note - Evaluation Sepsis Screening Result: No Definite Risk - Focused Exam Vital Signs: Vital Signs Temp Pulse Resp BP Pulse Ox 11/25/19 02:43 36.9 C 87 16 170/82 H 95 Date Exam was Performed: 11/25/19 Time Exam was Performed: 03:10 - My Orders Last 24 Hours: My Active Orders 11/25/19 03:09 Thoracic Spine 3V [CR] Stat - Assessment/Plan Last 24 Hours: My Active Orders 11/25/19 03:09 Thoracic Spine 3V [CR] Stat
--- NOTE | 2019-11-25 06:26 | CR ---
Thoracic spine: AP, lateral and swimmer's views of the thoracic spine were obtained. Comparison: No prior thoracic spine imaging is available. Vertebral body heights are maintained. Pedicles are intact. Minimal scoliosis is noted. Minimal scattered disc space narrowing is seen. No subluxation or fracture is appreciated. Impression: 1. Slight scoliosis and minimal degenerative change. 2. Thoracic spine study is otherwise unremarkable. Diagnostic code #2 This report was dictated in [place] Standard Time
== END 2019-11-25 03:53 | disposition home or self-care (01) ==
LOC: JD.ED 02:35
DX: M54.6 Pain in thoracic spine (principal); K21.9 Gastro-esophageal reflux disease without esophagitis; F41.9 Anxiety disorder, unspecified; F32.9 Major depressive disorder, single episode, unspecified; E66.9 Obesity, unspecified; Z68.36 Body mass index [BMI] 36.0-36.9, adult; G35 Multiple sclerosis; Z79.899 Other long term (current) drug therapy; Z88.2 Allergy status to sulfonamides; Z88.0 Allergy status to penicillin; Z88.8 Allergy status to other drugs, medicaments and biological substances
CPT/HCPCS: 72072; 72072-26; 99283; 99283-25

== ENCOUNTER 2019-11-28 12:05 | Emergency (ER) | payer MEDICAID ==
[2019-11-28 12:11] VITALS: BP 166/73; PULSE 78
--- NOTE | 2019-11-28 12:40 | EDM.PDOC ---
ED HPI GENERAL MEDICAL PROBLEM - General Chief Complaint: Abdominal Pain Stated Complaint: [facility] Time Seen by Provider: 11/28/19 12:10 Source of Information: Reports: Patient, RN Notes Reviewed History Limitations: Reports: No Limitations - History of Present Illness INITIAL COMMENTS - FREE TEXT/NARRATIVE: Patient is a 44-year-old female who presents to the ED via [facility] for the evaluation of some abdominal pain. Patient notes that she has lower pelvic discomfort, this is been presents for a few days, she states that she has had her period since November 09. She notes that she will have cycles between where she has a couple clots, where her period is extra heavy, then have regular flow, and it will cycle back and forth. She is not had any nonbleeding days since November 09. Patient notes that she has seen CYTOLOGY TECHNOLOGIST in the past, and was wondering about the possibility of hysterectomy, but this is not been done or scheduled at this time. She does have some lower abdominal cramping associated with this. She states that she has had her appendix taken out in the past, she believes in 2000. Patient states that she called the ambulance today however due to the fact that she had some pain that radiated up into her right arm. Of note she was evaluated in this ER roughly 3 nights ago for upper back pain, she was given a prescription for diazepam, as it was believed that some stress/anxiety very well could be the cause of most of her issues, she went to fill the medication and could not fill it at the pharmacy as Medicaid would not pay for it, and she did not have the money to do so at that time. Patient notes that she had one episode of nausea and vomiting this morning, she is not had any diarrhea, she is not complaining of any obvious chest pain, but did state that she was having some of the right arm pain. She is not having any shortness of breath. Patient notes she is not really had an appetite for the past few days as well, and she did have a regular bowel movement this morning. 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 TENDER: Reports: IV/IO, Other (see below) Other 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 TENDER: dilaudid IVP - Related Data Allergies Allergy/AdvReac Type Severity Reaction Status Date / Time chlorhexidine Allergy Rash Verified 11/28/19 12:11 ketoconazole Allergy Rash Verified 11/28/19 12:11 Penicillins AdvReac Vomiting Verified 11/28/19 12:11 sulfamethoxazole AdvReac Vomiting Verified 11/28/19 12:11 [From Bactrim] trimethoprim [From Bactrim] AdvReac Vomiting Verified 11/28/19 12:11 Home Meds: Home Meds Ocrelizumab [Ocrevus] 300 mg IV Q6M 06/26/19 [History] FLUoxetine HCl [Prozac] 20 mg PO DAILY 11/25/19 [History] Omeprazole 20 mg PO DAILY 11/25/19 [History] medroxyPROGESTERone [Provera] 10 mg PO DAILY #10 tab 11/28/19 [Rx] Past Medical History HEENT History: Reports: Hard of Hearing, Impaired Vision Other HEENT History: wears glasses Gastrointestinal History: Reports: GERD Genitourinary History: Reports: Urinary Incontinence Musculoskeletal History: Reports: Back Pain, Chronic Neurological History: Reports: Migraines, MS Psychiatric History: Reports: Anxiety, Depression Endocrine/Metabolic History: Reports: Obesity/BMI 30+ Dermatologic History: Reports: Cellulitis Other Dermatologic History: 12/08/18 cellulitis right leg - Infectious Disease History Infectious Disease History: Reports: Chicken Pox, Influenza - Past Surgical History HEENT Surgical History: Reports: Oral Surgery, Tonsillectomy GI Surgical History: Reports: Appendectomy, EGD Neurological Surgical History: Reports: Lumbar Spine Dermatological Surgical History: Reports: Other (See Below) Social & Family History - Family History Family Medical History: Unobtainable - Tobacco Use Smoking Status *Q: Never Smoker - Caffeine Use Caffeine Use: Reports: None Other Caffeine Use: one can mellow yellow a day - Recreational Drug Use Recreational Drug Use: No - Living Situation & Occupation Living situation: Reports: , with Spouse 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 Denies: Fever Respiratory: Denies: Shortness of Breath, Cough Cardiovascular: Denies: Chest Pain, Lightheadedness GI/Abdominal: Reports: Abdominal Pain (lower abdominal cramping), Decreased Appetite, Nausea, Vomiting. Denies: Constipation, Diarrhea : Reports: Other (vaginal bleeding). Denies: Dysuria, Frequency, Urgency Musculoskeletal: Reports: Arm Pain (R arm pain) Neurological: Denies: Numbness, Tingling Psychiatric: Reports: Anxiety (stress) ED EXAM, GI/ABD - Physical Exam Exam: See Below Exam Limited By: No Limitations General Appearance: Alert, WD/WN, No Apparent Distress Eyes: Bilateral: Normal Appearance, EOMI Ears: Normal External Exam Nose: Normal Inspection Throat/Mouth: Normal Inspection, Normal Lips, Normal Teeth, Normal Gums, Normal Oropharynx, Normal Voice, No Airway Compromise Head: Atraumatic, Normocephalic Neck: Normal Inspection, Supple, Non-Tender, Full Range of Motion Respiratory/Chest: No Respiratory Distress, Lungs Clear, Normal Breath Sounds, No Accessory Muscle Use, Chest Non-Tender Cardiovascular: Normal Peripheral Pulses, Regular Rate, Rhythm, No Edema, No Murmur GI/Abdominal Exam: Normal Bowel Sounds, Soft, Non-Tender, No Distention, No Mass (Female) Exam: Deferred Extremities: Normal Inspection, Normal Capillary Refill Neurological: Alert, Oriented, Normal Cognition, No Motor/Sensory Deficits Psychiatric: Normal Affect, Normal Mood Skin Exam: Warm, Dry, Intact, Normal Color, No Rash EKG INTERPRETATION EKG Date: 11/28/19 Time: 12:51 Rhythm: NSR Rate (Beats/Min): 71 Hannah: Normal P-Wave: Present QRS: Normal ST-T: Normal QT: Normal Comparison: NA - No Prior EKG EKG Interpretation Comments: No acute ischemic changes noted by myself or Dr. Burrell. Course - Vital Signs Last Recorded V/S: Last Vital Signs Temp 98.9 F 11/28/19 12:08 Pulse 78 11/28/19 12:08 Resp 16 11/28/19 12:08 BP 166/73 H 11/28/19 12:08 Pulse Ox 98 11/28/19 12:08 - Orders/Labs/Meds Orders: Active Orders 24 hr Category Date Time Status EKG Documentation Completion [RC] STAT Care 11/28/19 12:32 Active UA W/MICROSCOPIC [URIN] Stat Lab 11/28/19 13:57 Ordered Labs: Laboratory Tests 11/28/19 11/28/19 11/28/19 Range/Units 12:40 12:40 12:40 WBC 14.62 H (3.98-10.04) K/mm3 RBC 4.68 (3.98-5.22) M/mm3 Hgb 13.3 (11.2-15.7) gm/dl Hct 40.8 (34.1-44.9) % MCV 87.2 (79.4-94.8) fl MCH 28.4 (25.6-32.2) pg MCHC 32.6 (32.2-35.5) g/dl RDW Std Deviation 44.4 (36.4-46.3) fL Plt Count 427 H D (182-369) K/mm3 MPV 11.1 (9.4-12.3) fl Neutrophils % (Manual) 89 H (40-60) % Band Neutrophils % 0 (0-10) % Lymphocytes % (Manual) 5 L (20-40) % Atypical Lymphs % 0 % Monocytes % (Manual) 4 (2-10) % Eosinophils % (Manual) 2 (0.7-5.8) % Basophils % (Manual) 0 L (0.1-1.2) Platelet Estimate Increased RBC Morph Comment Normal PT 11.2 (9.7-12.0) SECONDS INR 1.03 APTT 26 (22-31) SECONDS Sodium 141 (136-145) mEq/L Potassium 3.4 L (3.5-5.1) mEq/L Chloride 105 (98-107) mEq/L Carbon Dioxide 27 (21-32) mEq/L Anion Gap 12.4 (5-15) BUN 15 (7-18) mg/dL Creatinine 0.8 (0.55-1.02) mg/dL Est Cr Clr Drug Dosing 89.58 mL/min Estimated GFR (MDRD) > 60 (>60) mL/min BUN/Creatinine Ratio 18.8 H (14-18) Glucose 150 H (74-106) mg/dL Calcium 9.0 (8.5-10.1) mg/dL Magnesium 1.7 L (1.8-2.4) mg/dl Total Bilirubin 1.0 (0.2-1.0) mg/dL AST 90 H (15-37) U/L ALT 53 (14-59) U/L Alkaline Phosphatase 233 H (46-116) U/L Troponin I < 0.017 (0.00-0.056) ng/mL NT-Pro-B Natriuret Pep (0-125) pg/mL Total Protein 7.2 (6.4-8.2) g/dl Albumin 3.4 (3.4-5.0) g/dl Globulin 3.8 gm/dL Albumin/Globulin Ratio 0.9 L (1-2) 11/28/19 Range/Units 12:40 WBC (3.98-10.04) K/mm3 RBC (3.98-5.22) M/mm3 Hgb (11.2-15.7) gm/dl Hct (34.1-44.9) % MCV (79.4-94.8) fl MCH (25.6-32.2) pg MCHC (32.2-35.5) g/dl RDW Std Deviation (36.4-46.3) fL Plt Count (182-369) K/mm3 MPV (9.4-12.3) fl Neutrophils % (Manual) (40-60) % Band Neutrophils % (0-10) % Lymphocytes % (Manual) (20-40) % Atypical Lymphs % % Monocytes % (Manual) (2-10) % Eosinophils % (Manual) (0.7-5.8) % Basophils % (Manual) (0.1-1.2) Platelet Estimate RBC Morph Comment PT (9.7-12.0) SECONDS INR APTT (22-31) SECONDS Sodium (136-145) mEq/L Potassium (3.5-5.1) mEq/L Chloride (98-107) mEq/L Carbon Dioxide (21-32) mEq/L Anion Gap (5-15) BUN (7-18) mg/dL Creatinine (0.55-1.02) mg/dL Est Cr Clr Drug Dosing mL/min Estimated GFR (MDRD) (>60) mL/min BUN/Creatinine Ratio (14-18) Glucose (74-106) mg/dL Calcium (8.5-10.1) mg/dL Magnesium (1.8-2.4) mg/dl Total Bilirubin (0.2-1.0) mg/dL AST (15-37) U/L ALT (14-59) U/L Alkaline Phosphatase (46-116) U/L Troponin I (0.00-0.056) ng/mL NT-Pro-B Natriuret Pep 62 (0-125) pg/mL Total Protein (6.4-8.2) g/dl Albumin (3.4-5.0) g/dl Globulin gm/dL Albumin/Globulin Ratio (1-2) Meds: Medications Discontinued Medications Generic Name Dose Route Start Last Admin Trade Name Davina PRGale Reason Stop Dose Admin Dicyclomine HCl 20 mg 11/28/19 14:15 11/28/19 14:34 Bentyl PO 11/28/19 14:16 20 mg ONETIME ONE Administration - Re-Assessments/Exams Free Text/Narrative Re-Assessment/Exam: 11/28/19 12:44 Patient presents to the ED for the evaluation of ongoing abdominal pain and some vaginal bleeding with right arm pain. Not exactly sure what the right arm pain is from, but she characterize may be a little bit of chest discomfort, she does not have a cardiac history but I will do an EKG a troponin, and other baseline labs to rule out any cardiac etiology, as for her vaginal bleeding, it is most likely perimenopausal changes, will likely stick her on Provera and have her follow-up with CYTOLOGY TECHNOLOGIST. 11/28/19 14:14 Labs have come back and demonstrate no worrisome abnormalities. White blood cell count is mildly elevated at 14.6 to 89% neutrophils no bands, hemoglobin is within normal limits. Coag studies are okay, potassium is mildly low at 3.4 as well as magnesium mildly low at 1.7, troponins negative. I do believe that the white blood cell count derangement is more of a stress reaction. And the pain that she is experiencing is due to her vaginal bleeding she has been having since around November 09. She is complaining of some generalized abdominal cramping at this time. I will provide her with a tablet of dicyclomine to see if this does not help, I did also order a urinalysis for possible UTI, due to lower pelvic pain, and then hopefully discharge her home. Departure - Departure Time of Disposition: 15:34 Disposition: Home, Self-Care 01 Condition: Fair Clinical Impression: Dysfunctional uterine bleeding, Abdominal cramping - Discharge Information *PRESCRIPTION DRUG MONITORING PROGRAM REVIEWED*: No *COPY OF PRESCRIPTION DRUG MONITORING REPORT IN PATIENT JUAN CARLOS: No Prescriptions: medroxyPROGESTERone [Provera] 10 mg PO DAILY #10 tab Instructions: Abnormal Uterine Bleeding, [id number] Referrals: Selwyn Soliz MD [Physician] - 2 Weeks Forms: ED Department Discharge Additional Instructions: You were evaluated in the ER today regarding your abdominal pain and right arm pain. Cardiac work-up was obtained, and is within normal limits. It is likely that your abdominal pain is due to the dysfunctional uterine bleeding you are experiencing. You have been started on Provera, 10 mg 1 tab daily for the next 10 days to help stop the bleeding. Recommend you follow-up with CYTOLOGY TECHNOLOGIST, please call [phone], as per your history I believe you have seen Dr. Soliz in the past, and that is who you are getting a referral for at today's visit. Please go over with him the pros and cons of a hysterectomy, to see if it would be warranted in your case at this time. Please return to the ER at any time if your symptoms change or worsen. Sepsis Event Note - Evaluation Sepsis Screening Result: No Definite Risk - Focused Exam Vital Signs: Vital Signs Temp Pulse Resp BP Pulse Ox 11/28/19 12:08 98.9 F 78 16 166/73 H 98 Date Exam was Performed: 11/28/19 Time Exam was Performed: 15:34 - My Orders Last 24 Hours: My Active Orders 11/28/19 12:32 EKG Documentation Completion [RC] STAT 11/28/19 13:57 UA W/MICROSCOPIC [URIN] Stat - Assessment/Plan Last 24 Hours: My Active Orders 11/28/19 12:32 EKG Documentation Completion [RC] STAT 11/28/19 13:57 UA W/MICROSCOPIC [URIN] Stat
[2019-11-28] MEDS ORDERED: Dicyclomine 10 MG Cap PO ONE (14:15)
== END 2019-11-28 16:08 | disposition home or self-care (01) ==
LOC: JD.ED 12:05
DX: N93.8 Other specified abnormal uterine and vaginal bleeding (principal); K21.9 Gastro-esophageal reflux disease without esophagitis; F41.9 Anxiety disorder, unspecified; G35 Multiple sclerosis; F32.9 Major depressive disorder, single episode, unspecified; E66.9 Obesity, unspecified; Z68.37 Body mass index [BMI] 37.0-37.9, adult; Z88.0 Allergy status to penicillin; Z88.2 Allergy status to sulfonamides; Z88.1 Allergy status to other antibiotic agents; Z79.899 Other long term (current) drug therapy
CPT/HCPCS: 36415; 80053; 81001; 83735; 83880; 84484; 85007; 85027; 85610; 85730; 93005; 99284; A9270; 93010; 99283

== ENCOUNTER 2019-12-18 06:55 | Day surgery (SDC) | payer MEDICAID ==
[~2019-12-18 06:55] MED LIST: Lactated Ringers 1,000 ML IV SCH; Lidocaine 1%/Sod Bicarbonate in NS 8.4% 1 ML Syringe IDERM PRN; Sodium Chloride 0.9% 10 ML Syringe FLUSH PRN
[2019-12-18] MEDS ORDERED: Lidocaine 1% with EPINEPHrine 1:100,000 20 ML MDV ONE (07:02)
[2019-12-18] MEDS ORDERED: Bupivacaine 0.5% 30 ML SDV ONE (07:03)
[2019-12-18] MEDS ORDERED: Sodium Chloride 0.9% 50 ML SDV ONE (07:11)
[2019-12-18] MEDS ORDERED: Scopolamine 1.5 MG Transdermal Patch TOP ONE (07:13)
--- NOTE | 2019-12-18 07:18 | PCM.PREANE ---
Preanesthetic Assessment - Anesthesia/Transfusion/Family Hx Anesthesia History: Prior Anesthesia Reaction Family History of Anesthesia Reaction: No Transfusion History: No Prior Transfusion(s) - Review of Systems General: No Symptoms Pulmonary: No Symptoms Cardiovascular: No Symptoms Gastrointestinal: No Symptoms Neurological: Numbness ("with MS"), Tingling ("with MS") Other: Reports: Anxiety - Physical Assessment NPO Status Date: 12/17/19 NPO Status Time: 00:00 Height: 1.73 m ASA Class: 2 Mental Status: Alert & Oriented x3 Airway Class: Mallampati = 1 Dentition: Reports: [place](s), Missing Tooth/Teeth, Caries Thyro-Mental Finger Breadths: 3 Mouth Opening Finger Breadths: 3 ROM/Head Extension: Full Lungs: Clear to Auscultation, Normal Respiratory Effort Cardiovascular: Regular Rate, Regular Rhythm - Lab Values: Laboratory Last Values Urine Color Yellow (Yellow) 12/18/19 07:02 Urine Appearance Clear (Clear) 12/18/19 07:02 Urine pH 6.5 (5.0-8.0) 12/18/19 07:02 Ur Specific [place] 1.020 (1.005-1.030) 12/18/19 07:02 Urine Protein Trace (Negative) H 12/18/19 07:02 Urine Glucose (UA) Negative (Negative) 12/18/19 07:02 Urine Ketones Negative (Negative) 12/18/19 07:02 Urine Occult Blood 2+ (Negative) H 12/18/19 07:02 Urine Nitrite Negative (Negative) 12/18/19 07:02 Urine Bilirubin Negative (Negative) 12/18/19 07:02 Urine Urobilinogen 2.0 (0.2-1.0) H 12/18/19 07:02 Ur Leukocyte Esterase 1+ (Negative) H 12/18/19 07:02 - Imaging/EKG Impressions: EKG SR rate 73 - Allergies Allergies/Adverse Reactions: Allergies Allergy/AdvReac Type Severity Reaction Status Date / Time chlorhexidine Allergy Rash Verified 12/17/19 14:44 ketoconazole Allergy Rash Verified 12/17/19 14:44 Penicillins AdvReac Rash Verified 12/17/19 14:44 sulfamethoxazole AdvReac Vomiting Verified 12/17/19 14:44 [From Bactrim] trimethoprim [From Bactrim] AdvReac Vomiting Verified 12/17/19 14:44 - Blood Blood Available: Yes Product(s) Available: PRBC - Anesthesia Plan Pre-Op Medication Ordered: None - Acknowledgements Anesthesia Type Planned: General Anesthesia Pt an Appropriate Candidate for the Planned Anesthesia: Yes Alternatives and Risks of Anesthesia Discussed w Pt/Guardian: Yes Pt/Guardian Understands and Agrees with Anesthesia Plan: Yes PreAnesthesia Questionnaire HEENT History: Reports: Allergic Rhinitis Other HEENT History: wears glasses Cardiovascular History: Reports: None Respiratory History: Reports: Bronchitis, Recurrent Gastrointestinal History: Reports: GERD Genitourinary History: Reports: Renal Calculus, UTI, Recurrent, Other (See Below ) Other Genitourinary History: Dysuria INSIGHTS MANAGER History: Reports: None Other OB/BYN History: Abnormal uterine bleeding, lichen sclerosus of female genitalia, pruritis of vagina, vaginal candidiasis Musculoskeletal History: Reports: Back Pain, Chronic Other Musculoskeletal History: Right ankle sprain, broken finger in 6th grade, clavicle fracture at age 3 Neurological History: Reports: Headaches, Chronic, Migraines, MS Psychiatric History: Reports: Anxiety, Depression Endocrine/Metabolic History: Reports: None Hematologic History: Reports: None Immunologic History: Reports: None Oncologic (Cancer) History: Reports: None Dermatologic History: Reports: Cellulitis, Eczema Other Dermatologic History: 12/08/18 cellulitis right leg - Infectious Disease History Infectious Disease History: Reports: None - Past Surgical History Head Surgeries/Procedures: Reports: None HEENT Surgical History: Reports: Tonsillectomy, Other (See Below) Other HEENT Surgeries/Procedures: Facial surgery to upper lip from dog bite Cardiovascular Surgical History: Reports: None Respiratory Surgical History: Reports: None GI Surgical History: Reports: Appendectomy Female Surgical History: Reports: None Endocrine Surgical History: Reports: None Neurological Surgical History: Reports: None Musculoskeletal Surgical History: Reports: None Oncologic Surgical History: Reports: None Dermatological Surgical History: Reports: Other (See Below) - SUBSTANCE USE Smoking Status *Q: Former Smoker Tobacco Use Within Last Twelve Months: Cigarettes Second Hand Smoke Exposure: No Days Per Week of Alcohol Use: 0 Number of Drinks Per Day: 0 Total Drinks Per Week: 0 Recreational Drug Use History: No - HOME MEDS Home Medications: Home Meds Ocrelizumab [Ocrevus] 300 mg IV Q6M 06/26/19 [History] FLUoxetine HCl [Prozac] 40 mg PO QPM 11/25/19 [History] Omeprazole 20 mg PO DAILY 11/25/19 [History] Loratadine [Claritin] 10 mg PO DAILY PRN 12/17/19 [History] medroxyPROGESTERone [Provera] 20 - 30 mg PO QPM 12/17/19 [History] - CURRENT (IN HOUSE) MEDS Current Meds: Current Medications Lactated Ringer's (Ringers, Lactated) 1,000 mls @ 125 mls/hr IV ASDIRECTED SANDRO Lidocaine/Sodium Bicarbonate (Buffered Lidocaine 1% In Ns 8.4%) 0.25 ml IDERM ONETIME PRN PRN Reason: Prior to IV Start Scopolamine (Transderm-Scop) 1.5 mg TOP ONETIME ONE Stop: 12/18/19 07:14 Sodium Chloride (Saline Flush) 10 ml FLUSH ASDIRECTED PRN PRN Reason: Keep Vein Open Discontinued Medications Bupivacaine HCl (Marcaine 0.5%) Confirm Administered Dose 30 ml .ROUTE .STK-MED ONE Stop: 12/18/19 07:04 Lidocaine/Epinephrine (Xylocaine 1% With Epinephrine 1:100,000) Confirm Administered Dose 20 ml .ROUTE .STK-MED ONE Stop: 12/18/19 07:03
[2019-12-18] MEDS ORDERED: Rocuronium 50 MG/5 ML Vial ONE (07:25)
[2019-12-18] MEDS ORDERED: Ondansetron 4 MG/2 ML SDV ONE (07:25)
[2019-12-18] MEDS ORDERED: Midazolam 1 MG/ML 2 ML SDV ONE (07:26)
[2019-12-18] MEDS ORDERED: Lidocaine 1% 4 ML ONE (07:26)
[2019-12-18] MEDS ORDERED: Propofol 200 MG/20 ML SDV ONE (07:26)
[2019-12-18] MEDS ORDERED: Ketorolac 30 MG/ML SDV ONE (07:26)
[2019-12-18] MEDS ORDERED: fentaNYL 250 MCG/5 ML SDV ONE (07:26)
[2019-12-18] MEDS ORDERED: ceFAZolin 1 GM Vial ONE (08:39)
[2019-12-18] MEDS ORDERED: HYDROmorphone 0.5 MG/0.5 ML Syringe ONE ×2 (08:41)
[2019-12-18] MEDS ORDERED: Lactated Ringers 1,000 ML ONE ×2 (08:52→10:28)
[2019-12-18] MEDS ORDERED: fentaNYL 100 MCG/2 ML SDV ONE (09:47)
[2019-12-18] MEDS ORDERED: ePHEDrine Sulfate/0.9% NaCl/Pf 25 MG/5 ML SYRINGE IV ONE (09:55)
[2019-12-18] MEDS ORDERED: fentaNYL 100 MCG/2 ML SDV IVPUSH PRN (10:47)
[2019-12-18] MEDS ORDERED: HYDROmorphone 0.5 MG/0.5 ML Syringe IVPUSH PRN (10:47)
--- NOTE | 2019-12-18 10:50 | PCM.POSTAN ---
POST ANESTHESIA ASSESSMENT - MENTAL STATUS Mental Status: Alert, Oriented - VITAL SIGNS Vital Signs: Last Vital Signs Temp 36.1 C 12/18/19 10:40 Pulse 71 12/18/19 07:05 Resp 15 12/18/19 10:40 BP 168/72 H 12/18/19 10:40 Pulse Ox 99 12/18/19 10:40 - RESPIRATORY Respiratory Status: Respiratory Rate WNL, Airway Patent, O2 Saturation Stable - CARDIOVASCULAR CV Status: Pulse Rate WNL, Blood Pressure Stable - GASTROINTESTINAL GI Status: No Symptoms - PAIN Pain Score: 0 - POST OP HYDRATION Hydration Status: Adequate & Stable - OBSERVATIONS Free Text/Narrative:: no anesthesia complications noted
--- NOTE | 2019-12-18 10:59 | PCM.OPNOTE ---
- General Post-Op/Procedure Note Date of Surgery/Procedure: 12/18/19 Operative Procedure(s): Laparoscopic assisted vaginal hysterectomy, bilateral salpingectomy and right oophorectomy Findings: Grossly normal-appearing uterus, bilateral fallopian tubes and ovaries. In the right broad ligament there was a clear cyst measuring approximately 3 cm in size that was removed with the specimen. On the anterior left broad ligament there was a cyst measuring approximately 7 mm that was biopsied. Along the anterior peritoneum on the uterus and broad ligament as well as the left pelvic sidewall there was areas with white patches of peritoneum with a marketing representative sample being biopsied. Small amount of adhesions from the peritoneum to the right abdominal wall that were taken down during the case. Surgically absent appendix. Grossly normal-appearing visualized portions of the liver and upper abdomen. Pre Op Diagnosis: Complex endometrial hyperplasia with atypia Post-Op Diagnosis: Same with areas of cystic structures on the peritoneum and broad ligament as well as white patches on the left pelvic peritoneum. Anesthesia Technique: General ET Tube Primary Surgeon: Vernon Luis Anesthesia Provider: Lorenzo Remy Concrete Spreader: Cruzito Villarreal Reason Concrete Spreader Was Necessary: Patient safety and reduction of morbidity and mortality. Role of Concrete Spreader: Retraction for visualization and use of laparoscopic instruments to complete the case Pathology: 1. Suprapubic peritoneal biopsy 2. Left pelvic sidewall peritoneum biopsy 3. Left anterior broad ligament peritoneal biopsy 4. Uterus, cervix, bilateral fallopian tubes and right ovary Fluid Replacement, Intraop: 2,000 Output, Urine Amount: 100 EBL in mLs: 50 Complications: None Condition: Good Free Text/Narrative:: The patient was seen in the preoperative holding area and risks, benefits, indications, and alternatives of the procedure were reviewed with the patient and she desired to proceed with a laparoscopic assisted vaginal hysterectomy, bilateral salpingectomy, possible unilateral or bilateral salpingo-oophorectomy and possible total abdominal hysterectomy. Consents were reviewed. The patient was taken back to the OR and given general anesthesia with an endotracheal tube which was placed without difficulty. She was placed in dorsal lithotomy position using Yellofin stirrups. She was prepped and draped in normal sterile fashion. A Ricardo catheter was placed without difficulty. Attention was then turned to her umbilicus where a previous laparoscopic scar was visualized. This was injected with 0.5% Marcaine and a 5 mm stab incision was made with a scalpel and a Veress needle was then inserted through the incision. The gas was turned on, with an opening pressure of 9 mmHg. after attempting to inflate the abdomen it was felt that the Veress needle was likely not in the peritoneal cavity. Decision was made to proceed with direct abdominal entry using the trocar. A 5 mm trocar was then inserted under direct visualization through the incision without difficulty and the abdomen was insufflated using the trocar. Attention was then turned to the patient's left lower quadrant where an avascular space approximately intermediate between the ASIS and the umbilicus was identified. Local anesthetic was injected and a 5 mm incision was made with a scalpel. A 5 mm trocar was then inserted under direct visualization of the laparoscope. Attention was then turned to the right lower quadrant where there is noted to be adhesions from the peritoneum to the abdominal wall. These areas of adhesion were taken down using blunt and sharp dissection with the Enseal vessel sealing device. An avascular portion of the abdominal wall was then identified approximately intermediate between the ASIS and the umbilicus. Local anesthetic was injected and a scalpel was used to make a 5 mm incision. A 5 mm trocar was inserted under direct visualization with the laparoscope. Attention was then turned to the pelvis where the uterus was visualized and noted be normal in appearance with normal appearing bilateral fallopian tubes and normal-appearing bilateral ovaries. There were some abnormalities that were noted on the peritoneum with small areas of white plaques measuring in size from 1 to 3 mm with 1 of these spots being biopsied using laparoscopic biopsy. There is also noted to be a cyst on the suprapubic peritoneum as well as the anterior left broad ligament. These were both biopsied using the laparoscopic instrument. On the right broad ligament there was a clear cyst on the posterior broad ligament and this was not biopsied at this time. The atraumatic grasper was then removed from the left lower trocar and a Enseal vessel sealing device was introduced and was used to transect the left fallopian tube and round ligament. The mesosalpinx connecting the left fallopian tube was transected from the ovary and underlying tissue. The left round ligament was then transected using the Enseal vessel sealing device. The utero-ovarian ligament was then transected using the Enseal vessel sealing device. The left side of the uterus and broad ligament were then transected using the Enseal vessel sealing device until the level of the uterovesical peritoneal reflection. The Enseal vessel sealing device was then used to cauterize and ligate the uterine artery. This was repeated on the patient's right side. The fallopian tube was transected from the mesosalpinx using the Enseal vessel sealing device. After inspection of the right ovary and right broad ligament there was noted to be a large cystic structure within the broad ligament and decision was made to remove the ovary with the specimen. The infundibulopelvic ligament was then cauterized and ligated using the Enseal vessel sealing device. The IP ligament was then cauterized and ligated to the level of the right round ligament and this was transected using the Enseal vessel sealing device as well. The anterior broad ligament was transected in order to visualize the area with the cyst and this was dissected out from the surrounding tissue. The right broad ligament was then cauterized and transected to the level of the uterovesical peritoneal reflection. A bladder flap was created using the Enseal vessel sealing device. The right uterine artery was then identified and cauterized and transected using the Enseal vessel sealing device. The pelvis was then inspected for hemostasis at this time and hemostasis was noted. All instruments were removed from the abdomen. Attention was then turned to the patient's perineum where a weighted speculum was placed into the vagina and a Maryam retractor was used to visualize the cervix. The cervix was grasped with a double-tooth tenaculum. The cervical reflection point was then injected circumferentially with 0.25% lidocaine with epinephrine. The cervix was then circumferentially incised with a scalpel. The bladder was then dissected off the pubovesical cervical fascia anteriorly with Metzenbaum scissors. The same procedure was performed posteriorly and the posterior cul-de-sac was entered sharply without difficulty using Metzenbaum scissors. At this point, an Enseal vessel sealing device was placed over the uterosacral ligaments on the patient's left side. These were cauterized and ligated with the device. This was repeated on the patient's right side. Hemostasis was assured. The cardinal ligaments were then clamped on both sides using the Enseal vessel sealing device, cauterized and transected with the device. The remainder of the broad ligament were then serially clamped with the Enseal vessel sealing device, cauterized and transected with the device on the bilateral sides. Excellent hemostasis was noted. The cervix, uterus, bilateral fallopian tubes and right ovary were able to be delivered at this time. The posterior vaginal cuff was closed with running locked sutures of 0 Monocryl. The vaginal cuff was then closed in a horizontal fashion using running locked sutures with 0 Monocryl suture. All instruments were removed from the vagina. Attention was then turned to the abdomen where a laparoscope was inserted and was used to check for hemostasis. Hemostasis was noted at this time. The case was complete at this time. The gas was then evacuated from the peritoneum and trocars removed. These were closed using 4-0 Monocryl suture and Dermabond. The patient was awoken from general anesthesia and taken to the PACU for recovery in stable condition. She will be discharged to home once she is able to meet all postoperative milestones including tolerating small amount of oral intake and liquids, ambulate without difficulty, her pain controlled with oral medications and able to void without difficulty. She will follow-up in the clinic in 2 weeks or earlier as needed. Sponge, lap, needle, and instrument counts were correct x 2. Review of images from case IMG 001: Left pelvic sidewall peritoneum with white plaque structures present as well as cyst on the left anterior broad ligament. IMG 002: Suprapubic cyst on the peritoneum IMG 003: Grossly normal-appearing uterus IMG 004: Grossly normal-appearing left fallopian tube and ovary IMG 005: Right ovary with cystic structure on the posterior right broad ligament IMG 006: Grossly normal-appearing right fallopian tube and ovary with small portion of the visualized right broad ligament cyst IMG 007: Visualization of the anterior uterine peritoneum and suprapubic peritoneum after biopsy of several areas IMG 008: Right pelvic sidewall with hemostasis noted after hysterectomy IMG 009: Vaginal cuff with hemostasis noted after hysterectomy Name G0 10: Left pelvic sidewall with hemostasis after hysterectomy and normal- appearing left ovary IMG 011: Grossly normal-appearing liver edge IMG 012: Grossly normal appearing left upper abdomen with small portion of the stomach visualized
--- NOTE | 2019-12-18 13:57 | PCM48HPAN ---
Post Anesthesia Note - EVALUATION WITHIN 48HRS OF ANESTHETIC Vital Signs in Normal Range: Yes Patient Participated in Evaluation: Yes Respiratory Function Stable: Yes Airway Patent: Yes Cardiovascular Function Stable: Yes Hydration Status Stable: Yes Pain Control Satisfactory: Yes Nausea and Vomiting Control Satisfactory: Yes Mental Status Recovered: Yes Vital Signs: Last Vital Signs Temp 36.9 C 12/18/19 11:30 Pulse 80 12/18/19 13:00 Resp 16 12/18/19 13:00 BP 132/65 12/18/19 13:00 Pulse Ox 96 12/18/19 13:00
[2019-12-18 14:25] VITALS: BP 127/60; PULSE 78
== END 2019-12-18 14:18 | disposition home or self-care (01) ==
LOC: JD.SDS 06:55
PROVIDERS: ATTEND Obstetrics & Gynecology
DX: C54.1 Malignant neoplasm of endometrium (principal); N94.89 Other specified conditions associated with female genital organs and menstrual cycle; D25.9 Leiomyoma of uterus, unspecified; N85.01 Benign endometrial hyperplasia; K21.9 Gastro-esophageal reflux disease without esophagitis; Z88.2 Allergy status to sulfonamides; Z88.0 Allergy status to penicillin; Z88.8 Allergy status to other drugs, medicaments and biological substances; Z87.891 Personal history of nicotine dependence; Z79.899 Other long term (current) drug therapy
CPT/HCPCS: 36415; 58552; 81001; 81025; 86850; 86900; 86901; A9270; J0171; J0690; J1170; J1885; J2001; J2250; J2405; J2704; J3010; J3490; J7120; 00944

== ENCOUNTER 2020-08-27 06:00 | Emergency (ER) | payer MEDICAID ==
[2020-08-27] MEDS ORDERED: Sodium Chloride 0.9% 10 ML Syringe FLUSH PRN (06:43)
[2020-08-27] MEDS ORDERED: Sodium Chloride 0.9% 1,000 ML IV SCH (06:45)
--- NOTE | 2020-08-27 06:50 | EDM.PDOC ---
ED HPI GENERAL MEDICAL PROBLEM - General Chief Complaint: General Stated Complaint: [facility] Time Seen by Provider: 08/27/20 06:19 Source of Information: Reports: Patient, RN Notes Reviewed - History of Present Illness INITIAL COMMENTS - FREE TEXT/NARRATIVE: 45 yr old female comes in by ambulance after onset of chills, myalgias that started yesterday and than vomiting and diarrhea during the night. Became very weak, dizzy, lightheaded and that is when she called the ambulance. Feels a bit better now. No cough or difficulty breathing. Worried about covid. Has not been out much but also not wearing a mask because that makes her feel claustrophobic. Generalized Pain Score (Numeric/FACES): 7 - Related Data Allergies Allergy/AdvReac Type Severity Reaction Status Date / Time chlorhexidine Allergy Rash Verified 08/27/20 06:04 ketoconazole Allergy Rash Verified 08/27/20 06:04 Penicillins AdvReac Rash Verified 08/27/20 06:04 sulfamethoxazole AdvReac Vomiting Verified 08/27/20 06:04 [From Bactrim] trimethoprim [From Bactrim] AdvReac Vomiting Verified 08/27/20 06:04 Home Meds: Home Meds Ocrelizumab [Ocrevus] 300 mg IV Q6M 06/26/19 [History] FLUoxetine HCl [Prozac] 40 mg PO QPM 11/25/19 [History] Omeprazole 20 mg PO DAILY 11/25/19 [History] Loratadine [Claritin] 10 mg PO DAILY PRN 12/17/19 [History] Docusate Sodium [Colace] 100 mg PO BID #60 capsule 12/18/19 [Rx] Ibuprofen 600 mg PO Q6H PRN #60 tablet 12/18/19 [Rx] Ondansetron [Zofran ODT] 4 mg PO Q6H PRN #30 tab.dis 12/18/19 [Rx] oxyCODONE HCl/Acetaminophen [Percocet 5-325 mg Tablet] 1 - 2 each PO Q6H PRN #30 tablet 12/18/19 [Rx] Past Medical History HEENT History: Reports: Allergic Rhinitis Other HEENT History: wears glasses Cardiovascular History: Reports: None Respiratory History: Reports: Bronchitis, Recurrent Gastrointestinal History: Reports: GERD Genitourinary History: Reports: Renal Calculus, UTI, Recurrent, Other (See Below) Other Genitourinary History: Dysuria EQUIPMENT SALES SPECIALIST History: Reports: None Other EQUIPMENT SALES SPECIALIST History: Abnormal uterine bleeding, lichen sclerosus of female genitalia, pruritis of vagina, vaginal candidiasis Musculoskeletal History: Reports: Back Pain, Chronic Other Musculoskeletal History: Right ankle sprain, broken finger in 6th grade, clavicle fracture at age 3 Neurological History: Reports: Headaches, Chronic, Migraines, MS Psychiatric History: Reports: Anxiety, Depression Endocrine/Metabolic History: Reports: None Hematologic History: Reports: None Immunologic History: Reports: None Oncologic (Cancer) History: Reports: None Dermatologic History: Reports: Cellulitis, Eczema Other Dermatologic History: 12/08/18 cellulitis right leg - Infectious Disease History Infectious Disease History: Reports: None - Past Surgical History Head Surgeries/Procedures: Reports: None HEENT Surgical History: Reports: Tonsillectomy, Other (See Below) Other HEENT Surgeries/Procedures: Facial surgery to upper lip from dog bite Respiratory Surgical History: Reports: None GI Surgical History: Reports: Appendectomy Female Surgical History: Reports: None Endocrine Surgical History: Reports: None Neurological Surgical History: Reports: None Musculoskeletal Surgical History: Reports: None Other Musculoskeletal Surgeries/Procedures:: back surgery Oncologic Surgical History: Reports: None Dermatological Surgical History: Reports: Other (See Below) Social & Family History - Family History Family Medical History: Unobtainable - Tobacco Use Tobacco Use Status *Q: Former Tobacco User Used Tobacco, but Quit: Yes Month/Year Tobacco Last Used: 1996 Second Hand Smoke Exposure: No - Caffeine Use Caffeine Use: Reports: Soda Other Caffeine Use: one can mellow yellow a day - Recreational Drug Use Recreational Drug Use: No - Living Situation & Occupation Living situation: Reports: , with Spouse 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 Denies: Rhinitis Respiratory: Denies: Shortness of Breath, Cough Cardiovascular: Denies: Chest Pain GI/Abdominal: Reports: Abdominal Pain (mild cramps), Diarrhea, Nausea, Vomiting Musculoskeletal: Reports: Other (achiness) Skin: Reports: No Symptoms Neurological: Reports: Dizziness ED EXAM, GENERAL - Physical Exam Exam: See Below General Appearance: Alert, Anxious, Mild Distress Head: Atraumatic Neck: Supple Respiratory/Chest: No Respiratory Distress, Lungs Clear, Normal Breath Sounds. No: Rhonchi, Wheezing Cardiovascular: Tachycardia GI/Abdominal: Soft, Non-Tender. No: Guarding Extremities: Normal Inspection, Normal Range of Motion Neurological: Alert, Oriented, No Motor/Sensory Deficits Skin Exam: Warm, Dry, Normal Color Course - Vital Signs Last Recorded V/S: Last Vital Signs Temp 98.0 F 08/27/20 06:01 Pulse 113 H 08/27/20 06:01 Resp 20 08/27/20 06:01 BP 128/61 08/27/20 06:01 Pulse Ox 98 08/27/20 06:01 - Orders/Labs/Meds Orders: Active Orders 24 hr Category Date Time Status Peripheral IV Care [RC] . DIRECTED Care 08/27/20 06:43 Active Chest 1V Frontal [CR] Stat Exams 08/27/20 06:25 Taken CORONAVIRUS COVID-19 PCR [facility] Stat Lab 08/27/20 06:43 Ordered Sodium Chloride 0.9% [Normal Saline] 1,000 ml Med 08/27/20 06:45 Active IV ONETIME Sodium Chloride 0.9% [Saline Flush] Med 08/27/20 06:43 Active 10 ml FLUSH ASDIRECTED PRN Peripheral IV Insertion Adult [OM.PC] Stat Oth 08/27/20 06:43 Ordered Medication Orders Sodium Chloride (Normal Saline) 1,000 mls @ 999 mls/hr IV ONETIME SANDRO Last Admin: 08/27/20 07:01 Dose: 999 mls/hr Documented by: [id number] Sodium Chloride (Saline Flush) 10 ml FLUSH ASDIRECTED PRN PRN Reason: Keep Vein Open Last Admin: 08/27/20 07:01 Dose: 10 ml Documented by: [id number] Meds: Medications Generic Name Dose Route Start Last Admin Trade Name Freq PRN Reason Stop Dose Admin Sodium Chloride 1,000 mls @ 999 mls/hr 08/27/20 06:45 08/27/20 07:01 Normal Saline IV 999 mls/hr ONETIME SANDRO Administration Sodium Chloride 10 ml 08/27/20 06:43 08/27/20 07:01 Saline Flush FLUSH 10 ml ASDIRECTED PRN Administration Keep Vein Open - Re-Assessments/Exams Free Text/Narrative Re-Assessment/Exam: 08/27/20 06:48 Will give 1 liter of NS, will screen for covid, send it to the state. CXR nl. Departure - Departure Time of Disposition: 08:00 Disposition: Home, Self-Care 01 Condition: Fair Clinical Impression: Vomiting Qualifiers: Vomiting type: unspecified Vomiting Intractability: unspecified Nausea presence: with nausea Qualified Code(s): R11.2 - Nausea with vomiting, unspecified Diarrhea Qualifiers: Diarrhea type: unspecified type Qualified Code(s): R19.7 - Diarrhea, unspecified - Discharge Information Forms: ED Department Discharge Additional Instructions: Clear liquids until this evening. Than very careful bland diet as tolerated. Avoid milk and dairy products for at least 2 days. Covid screen will be sent to the [facility] lab. We will call you with results when available, usually 2 to 3 days. Self isolate until you do get results from the [facility]. Probiotic twice daily should help you get over the diarrhea more quickly. Sepsis Event Note (ED) - Evaluation Sepsis Screening Result: No Definite Risk - Focused Exam Vital Signs: Vital Signs Temp Pulse Resp BP Pulse Ox 08/27/20 06:01 98.0 F 113 H 20 128/61 98 - My Orders Last 24 Hours: My Active Orders 08/27/20 06:25 Chest 1V Frontal [CR] Stat 08/27/20 06:43 Peripheral IV Care [RC] . DIRECTED CORONAVIRUS COVID-19 PCR PHL Stat Sodium Chloride 0.9% [Saline Flush] 10 ml FLUSH ASDIRECTED PRN Peripheral IV Insertion Adult [OM.PC] Stat 08/27/20 06:45 Sodium Chloride 0.9% [Normal Saline] 1,000 ml IV ONETIME - Assessment/Plan Last 24 Hours: My Active Orders 08/27/20 06:25 Chest 1V Frontal [CR] Stat 08/27/20 06:43 Peripheral IV Care [RC] . DIRECTED CORONAVIRUS COVID-19 PCR PHL Stat Sodium Chloride 0.9% [Saline Flush] 10 ml FLUSH ASDIRECTED PRN Peripheral IV Insertion Adult [OM.PC] Stat 08/27/20 06:45 Sodium Chloride 0.9% [Normal Saline] 1,000 ml IV ONETIME
[2020-08-27 08:08] VITALS: BP 103/57; PULSE 112
--- NOTE | 2020-08-27 08:26 | CR ---
Chest: Frontal view of the chest was obtained. Comparison: Prior chest x-ray of 06/26/19. Findings: Heart and mediastinum: Within normal limits Lungs and pleural: Within normal limits Bony structures: No discrete abnormality. Impression: 1. Nothing acute is seen on frontal chest x-ray. Diagnostic code #1
== END 2020-08-27 09:20 | disposition home or self-care (01) ==
LOC: JD.ED 06:00
DX: R11.2 Nausea with vomiting, unspecified (principal); R19.7 Diarrhea, unspecified; R00.0 Tachycardia, unspecified; K21.9 Gastro-esophageal reflux disease without esophagitis; F41.9 Anxiety disorder, unspecified; F32.9 Major depressive disorder, single episode, unspecified; Z87.891 Personal history of nicotine dependence; Z20.828 Contact with and (suspected) exposure to other viral communicable diseases; Z88.8 Allergy status to other drugs, medicaments and biological substances; Z88.0 Allergy status to penicillin; Z88.2 Allergy status to sulfonamides; Z79.899 Other long term (current) drug therapy
CPT/HCPCS: 71045; 87635; 99284; J7030; 99283; U0002

== ENCOUNTER 2020-09-03 17:40 | Emergency (ER) | payer MEDICAID ==
[2020-09-03] MEDS ORDERED: Sodium Chloride 0.9% 1,000 ML IV STA (17:49)
[2020-09-03] MEDS ORDERED: Iopamidol 755 Mg/ML 100 ML Bottle IVPUSH ONE (18:22)
[2020-09-03] MEDS ORDERED: cefTRIAXone 2 GM in Sodium Chloride 0.9% 100 ML IV ONE (18:24)
[2020-09-03] MEDS ORDERED: Sodium Chloride 0.9% 10 ML Syringe FLUSH ONE (18:30)
[2020-09-03] MEDS ORDERED: Iopamidol 612 MG/ML 100 ML Bottle IVPUSH ONE ×2 (19:05→19:15)
--- NOTE | 2020-09-03 19:19 | EDM.PDOC ---
ED HPI GENERAL MEDICAL PROBLEM - General Chief Complaint: Gastrointestinal Problem Stated Complaint: VOMITTING X7 Time Seen by Provider: 09/03/20 17:46 Source of Information: Reports: Patient, Old Records, Other History Limitations: Reports: No Limitations - History of Present Illness INITIAL COMMENTS - FREE TEXT/NARRATIVE: Patient is a 45-year-old female presenting to the emergency department after being seen in the clinic with complaints of nausea, vomiting, and fever for the last 5 days. She states that over the course last 5 days, she has been unable to keep food down, however she is tolerating liquids fairly well. She is had intermittent fevers at home with a T-max of 103. Work-up in the clinic revealed an elevated white count at 22.69 urinalysis grossly positive for urinary tract infection. Patient denies any urinary symptoms. She is had no dysuria, frequency, or hematuria. She denies any back pain. She denies any respiratory complaints such as cough, congestion, or shortness of breath. Lower Abdominal Pain Score (Numeric/FACES): 4 - Related Data Allergies Allergy/AdvReac Type Severity Reaction Status Date / Time chlorhexidine Allergy Rash Verified 09/03/20 17:48 ketoconazole Allergy Rash Verified 09/03/20 17:48 Penicillins AdvReac Rash Verified 09/03/20 17:48 sulfamethoxazole AdvReac Vomiting Verified 09/03/20 17:48 [From Bactrim] trimethoprim [From Bactrim] AdvReac Vomiting Verified 09/03/20 17:48 Home Meds: Home Meds Ocrelizumab [Ocrevus] 300 mg IV Q6M 06/26/19 [History] FLUoxetine HCl [Prozac] 40 mg PO QPM 11/25/19 [History] Omeprazole 20 mg PO DAILY 11/25/19 [History] Loratadine [Claritin] 10 mg PO DAILY PRN 12/17/19 [History] Docusate Sodium [Colace] 100 mg PO BID #60 capsule 12/18/19 [Rx] Ibuprofen 600 mg PO Q6H PRN #60 tablet 12/18/19 [Rx] Ciprofloxacin [Ciprofloxacin HCl] 500 mg PO BID 7 Days #14 tab 09/03/20 [Rx] Ondansetron [Zofran ODT] 4 mg PO Q6H PRN #10 tab.dis 09/03/20 [Rx] Past Medical History HEENT History: Reports: Allergic Rhinitis Other HEENT History: wears glasses Cardiovascular History: Reports: None Respiratory History: Reports: Bronchitis, Recurrent Gastrointestinal History: Reports: GERD Genitourinary History: Reports: Renal Calculus, UTI, Recurrent, Other (See Below) Other Genitourinary History: Dysuria 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 Other [employer] 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 History: Abnormal uterine bleeding, lichen sclerosus of female genitalia, pruritis of vagina, vaginal candidiasis Musculoskeletal History: Reports: Back Pain, Chronic Other Musculoskeletal History: Right ankle sprain, broken finger in 6th grade, clavicle fracture at age 3 Neurological History: Reports: Headaches, Chronic, Migraines, MS Psychiatric History: Reports: Anxiety, Depression Endocrine/Metabolic History: Reports: None Hematologic History: Reports: None Immunologic History: Reports: None Oncologic (Cancer) History: Reports: None Dermatologic History: Reports: Cellulitis, Eczema Other Dermatologic History: 12/08/18 cellulitis right leg - Infectious Disease History Infectious Disease History: Reports: None - Past Surgical History Head Surgeries/Procedures: Reports: None HEENT Surgical History: Reports: Tonsillectomy, Other (See Below) Other HEENT Surgeries/Procedures: Facial surgery to upper lip from dog bite Cardiovascular Surgical History: Reports: None Respiratory Surgical History: Reports: None GI Surgical History: Reports: Appendectomy Female Surgical History: Reports: None Endocrine Surgical History: Reports: None Neurological Surgical History: Reports: None Musculoskeletal Surgical History: Reports: None Other Musculoskeletal Surgeries/Procedures:: back surgery Oncologic Surgical History: Reports: None Dermatological Surgical History: Reports: Other (See Below) Social & Family History - Family History Family Medical History: Unobtainable - Tobacco Use Tobacco Use Status *Q: Former Tobacco User Used Tobacco, but Quit: Yes Month/Year Tobacco Last Used: 09/1996 - Caffeine Use Caffeine Use: Reports: Soda Other Caffeine Use: one can mellow yellow a day - Recreational Drug Use Recreational Drug Use: No - Living Situation & Occupation Living situation: Reports: , with Spouse 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 Denies: Abdominal Pain, Diarrhea : Reports: No Symptoms Musculoskeletal: Reports: No Symptoms Skin: Reports: No Symptoms Neurological: Reports: No Symptoms Psychiatric: Reports: No Symptoms Hematologic/Lymphatic: Reports: No Symptoms Immunologic: Reports: No Symptoms ED EXAM, GENERAL - Physical Exam Exam: See Below Exam Limited By: No Limitations General Appearance: Alert, WD/WN, No Apparent Distress, Other (non-toxic appearing) Respiratory/Chest: No Respiratory Distress, Lungs Clear, Normal Breath Sounds, No Accessory Muscle Use, Chest Non-Tender Cardiovascular: Normal Peripheral Pulses, Regular Rate, Rhythm, No Edema, No Gallop, No JVD, No Murmur, No Rub GI/Abdominal: Normal Bowel Sounds, Soft, Non-Tender, No Organomegaly, No Distention, No Abnormal Bruit, No Mass Back Exam: Normal Inspection, Full Range of Motion, CVA Tenderness (L). No: CVA Tenderness (R) Neurological: Alert, Oriented, CN II-XII Intact, Normal Cognition, Normal Gait, Normal Reflexes, No Motor/Sensory Deficits Psychiatric: Normal Affect, Normal Mood Skin Exam: Warm, Dry, Intact, Normal Color, No Rash Course - Vital Signs Last Recorded V/S: Last Vital Signs Temp 97.3 F 09/03/20 20:25 Pulse 85 09/03/20 20:25 Resp 16 09/03/20 20:25 BP 152/66 H 09/03/20 20:25 Pulse Ox 99 09/03/20 20:25 - Orders/Labs/Meds Labs: Laboratory Tests 09/03/20 09/03/20 09/03/20 Range/Units 16:01 18:30 18:40 Lactic Acid 1.0 (0.4-2.0) mmol/L Magnesium 1.8 (1.8-2.4) mg/dl SARS-CoV-2 RNA (ELVA) Negative (NEGATIVE) Meds: Medications Discontinued Medications Generic Name Dose Route Start Last Admin Trade Name Rodq PRN Reason Stop Dose Admin Sodium Chloride 1,000 mls @ 999 mls/hr 09/03/20 17:49 09/03/20 18:43 Normal Saline IV 09/03/20 18:49 999 mls/hr NOW STA Administration Ceftriaxone Sodium 2 gm/ 100 mls @ 200 mls/hr 09/03/20 18:24 09/03/20 18:43 Sodium Chloride IV 09/03/20 18:53 200 mls/hr ONETIME ONE Administration Iopamidol 100 ml 09/03/20 19:05 Isovue-300 (61%) IVPUSH 09/03/20 19:06 ONETIME ONE Iopamidol 100 ml 09/03/20 19:15 Isovue-300 (61%) IVPUSH 09/03/20 19:16 ONETIME ONE Potassium Chloride 40 meq 09/03/20 19:52 09/03/20 20:25 Klor-Con M20 PO 09/03/20 19:53 40 meq ONETIME ONE Administration Sodium Chloride 10 ml 09/03/20 18:30 09/03/20 18:48 Saline Flush FLUSH 09/03/20 18:31 10 ml ONETIME ONE Administration - Re-Assessments/Exams Free Text/Narrative Re-Assessment/Exam: Patient is a 45-year-old female presenting to the emergency department after 1 week history of nausea, vomiting, fever. She was seen in the clinic prior to c oming here and found to have an elevated white count, CRP, and urinalysis grossly positive for infection. I have ordered additional blood work including lactic acid, magnesium, blood cultures, and a urine culture off the sample that was provided in clinic. Also do a 1 hour Covid test as I am sure unsure at this point if she will require hospital admission. I ordered a 1 L bolus of normal saline. Once cultures are collected, we will give her Rocephin 2 g IV. Of also ordered CT scan of the abdomen pelvis with IV contrast only. 09/03/20 20:06 Lactic acid was normal at 1.0. Abnormal 1.8. Covid screen was negative. CT scan of the abdomen pelvis shows rare enhancement and slight enlargement of the left kidney. Has the appearance of probable pyelonephritis. Patient has had no further vomiting and states that she feels she would be able to tolerate oral medications. I have ordered potassium 40 mEq to be given as her potassium was found to be low at 2.9. Return precautions discussed including if she is unable to tolerate oral medications of her symptoms seem to be worsening. I will discharge her home with a prescription for Cipro as well as Zofran for nausea. Discharge instructions as documented. Departure - Departure Time of Disposition: 20:08 Disposition: Home, Self-Care 01 Condition: Good Clinical Impression: Pyelonephritis - Discharge Information *PRESCRIPTION DRUG MONITORING PROGRAM REVIEWED*: No *COPY OF PRESCRIPTION DRUG MONITORING REPORT IN PATIENT JUAN CARLOS: No Prescriptions: Ciprofloxacin [Ciprofloxacin HCl] 500 mg PO BID 7 Days #14 tab Ondansetron [Zofran ODT] 4 mg PO Q6H PRN #10 tab.dis PRN Reason: Nausea/Vomiting Instructions: Pyelonephritis, Adult, [id number] Referrals: Amber Ventura PA-C [Primary Care Provider] - Forms: ED Department Discharge Additional Instructions: You were seen in the emergency department today for a 1 week history of nausea, vomiting, and fever. Work-up included blood work, urinalysis, CT scan of your abdomen pelvis. Results of your work-up were consistent with a diagnosis of pyelonephritis (kidney infection). In the ER, you received a liter of IV fluids as well as a dose of IV antibiotics. You have been provided prescription for Zofran for nausea as well as ciprofloxacin which is an antibiotic. Take these medications as prescribed. Ensure that you are taking an adequate amount of fluid. If you feel like your condition is worsening, or you are unable to tolerate oral medications, you should return to the emergency department. Sepsis Event Note (ED) - Evaluation Sepsis Screening Result: No Definite Risk
--- NOTE | 2020-09-03 19:47 | CT ---
CT abdomen and pelvis Technique: Multiple axial sections were obtained from above the dome of the diaphragm inferiorly through the pubic symphysis. Intravenous contrast was utilized. No oral contrast has been given. Delayed images were also obtained. Reconstructed coronal and sagittal images were also obtained. Findings: No prior CT abdomen or pelvis study is available. Findings: Lung bases: Visualized lung bases show nothing acute. Liver and spleen: Several gallstones are seen within the gallbladder. Liver and spleen show no focal abnormality. Adrenal glands: No adrenal nodule is seen. Pancreas: No abnormality is seen. Kidneys: Irregular enhancement and slight enlargement of the left kidney is seen. This has the appearance of probable pyelonephritis. Please correlate with the patient's symptoms. Delayed images also show contrast within portions of the ureters and bladder. Aorta, retroperitoneum and mesentery: Aorta shows no aneurysm. No retroperitoneal adenopathy or mesenteric abnormalities are seen. Bowel: Appendix is not visualized with certainty. No acute bowel abnormality is appreciated. Pelvis: No inflammatory change or mass is seen. Osseous: Slight disc space narrowing is noted at L5-S1. Small umbilical hernia is noted. Impression: 1. Findings within the left kidney suspicious for pyelonephritis. Please correlate with the patient's symptoms. 2. Other findings believed to be incidental as described above. Diagnostic code #3
[2020-09-03] MEDS ORDERED: Potassium Chloride 20 MEQ Tab.ER PO ONE (19:52)
[2020-09-03 20:27] VITALS: BP 152/66; PULSE 85
== END 2020-09-03 20:34 | disposition home or self-care (01) ==
LOC: JD.ED 17:40
DX: N12 Tubulo-interstitial nephritis, not specified as acute or chronic (principal); K21.9 Gastro-esophageal reflux disease without esophagitis; F41.9 Anxiety disorder, unspecified; F32.9 Major depressive disorder, single episode, unspecified; Z87.891 Personal history of nicotine dependence; Z88.8 Allergy status to other drugs, medicaments and biological substances; Z88.0 Allergy status to penicillin; Z88.2 Allergy status to sulfonamides; Z79.899 Other long term (current) drug therapy; Z20.828 Contact with and (suspected) exposure to other viral communicable diseases
CPT/HCPCS: 36415; 74177; 83605; 83735; 87040; 87086; 87088; 87186; 87635; 96365; 99284; A9270; J0696; J7030; J7050; 99283; U0002

== ENCOUNTER 2021-09-15 16:29 | Emergency (ER) | payer MEDICAID ==
[2021-09-15] MEDS ORDERED: Ondansetron 4 MG/2 ML SDV IVPUSH ONE (17:08)
[2021-09-15] MEDS ORDERED: HYDROmorphone 0.5 MG/0.5 ML Syringe IVPUSH ONE (17:08)
[2021-09-15] MEDS ORDERED: Sodium Chloride 0.9% 1,000 ML IV STA (17:08)
--- NOTE | 2021-09-15 17:52 | CT ---
CT abdomen and pelvis Technique: Multiple axial sections were obtained from above the dome of the diaphragm inferiorly through the pubic symphysis. Intravenous and oral contrast were not utilized. Study has been performed as a ureteral stone protocol. Comparison: Prior CT abdomen and pelvis study of 09/03/20. Findings: Kidneys show no abnormal calcifications. Both right and left ureters show no dilatation. No ureteral calculi are seen. No bladder calculi are seen. Visualized lung bases show nothing acute. Noncontrast appearance of the liver shows no focal abnormality. Gallstone is noted within the gallbladder measuring approximately 3.0 cm in size. Spleen size is normal. Small hiatal hernia is noted. Pancreas is within normal limits. Abdominal aorta shows atherosclerotic calcification which continues into the iliac vessels. No aneurysm is seen. No retroperitoneal adenopathy or mesenteric abnormalities are seen. No pelvic mass or adenopathy is seen. Slight increased stool is seen throughout the colon. Appendix is not visualized. No free fluid or inflammatory type change is seen. Prior hysterectomy is incidentally noted. Fat-containing umbilical hernia is noted. Bone window settings were obtained. Disc space narrowing is seen at L5-S1 with posterior disc bulging. Mild disc space narrowing is seen within the lower thoracic spine. Mild degenerative apophyseal change is noted within the lower lumbar spine. Impression: 1. No renal calculi, ureteral dilatation or ureteral calculus are seen. 2. Mild increased stool within the colon is noted. Large gallstones within the gallbladder. 3. Other findings believed to be chronic as noted above. Diagnostic code #2
[2021-09-15] MEDS ORDERED: Acetaminophen/HYDROcodone 325-5 MG Tab PO ONE (20:10)
[2021-09-15] MEDS ORDERED: Ketorolac 30 MG/ML SDV IVPUSH ONE (20:10)
--- NOTE | 2021-09-15 20:13 | EDM.PDOC ---
ED HPI GENERAL MEDICAL PROBLEM - General Chief Complaint: Back Pain or Injury Stated Complaint: BACK PAIN Time Seen by Provider: 09/15/21 16:45 Source of Information: Reports: Patient, RN Notes Reviewed History Limitations: Reports: No Limitations - History of Present Illness INITIAL COMMENTS - FREE TEXT/NARRATIVE: Patient is a 46-year-old female presenting to the emergency department with complaints of right flank pain rating to her right lateral abdomen right lower quadrant abdomen. Pain has been going on intermittently for the last week and is worse today. She describes it as a constant pain with occasional "spasms ". She is had no urinary symptoms. Denies any history of kidney stones. She is had no fever or chills. She has tried [id number] medications as well as her 's tramadol with little relief. She does have a history of MS and states that the right side of her body is more numb than the left so she does not normally feel much pain on this side, however this has been very uncomfortable for her. Denies any known injury. She has tried using her baclofen that she has at home and states it has not helped. Right Lower Back Pain Score (Numeric/FACES): 8 - Related Data Allergies Allergy/AdvReac Type Severity Reaction Status Date / Time chlorhexidine Allergy Severe Rash Verified 09/15/21 16:46 ketoconazole Allergy Severe Rash Verified 09/15/21 16:46 Penicillins AdvReac Severe Rash Verified 09/15/21 16:46 sulfamethoxazole AdvReac Severe Vomiting Verified 09/15/21 16:46 [From Bactrim] trimethoprim [From Bactrim] AdvReac Severe Vomiting Verified 09/15/21 16:46 Home Meds: Home Meds Ocrelizumab [Ocrevus] 300 mg IV Q6M 06/26/19 [History] Omeprazole 20 mg PO DAILY 11/25/19 [History] Loratadine [Claritin] 10 mg PO DAILY PRN 12/17/19 [History] Ibuprofen 600 mg PO Q6H PRN #60 tablet 12/18/19 [Rx] Ondansetron [Zofran ODT] 4 mg PO Q6H PRN #10 tab.dis 09/03/20 [Rx] Baclofen 1 tab PO QID PRN 09/15/21 [History] Escitalopram [Lexapro] 20 mg PO DAILY 09/15/21 [History] Hydrocodone/Acetaminophen [Hydrocodone-Acetamin 5-325 mg] 1 each PO Q4H PRN #12 tablet 09/15/21 [Rx] Pramipexole [Mirapex] 1 tab PO BEDTIME 09/15/21 [History] buPROPion HCL [Bupropion HCl Sr] 450 mg PO DAILY 09/15/21 [History] hydrOXYzine HCL [Hydroxyzine HCl] 1 - 2 tab PO Q6H PRN 09/15/21 [History] Past Medical History HEENT History: Reports: Allergic Rhinitis Other HEENT History: wears glasses Cardiovascular History: Reports: None Respiratory History: Reports: Bronchitis, Recurrent Gastrointestinal History: Reports: GERD Genitourinary History: Reports: Renal Calculus, UTI, Recurrent, Other (See Below) Other Genitourinary History: Dysuria ROTARY OPERATOR History: Reports: None Other ROTARY OPERATOR History: Abnormal uterine bleeding, lichen sclerosus of female genitalia, pruritis of vagina, vaginal candidiasis Musculoskeletal History: Reports: Back Pain, Chronic Other Musculoskeletal History: Right ankle sprain, broken finger in 6th grade, clavicle fracture at age 3 Neurological History: Reports: Headaches, Chronic, Migraines, MS Psychiatric History: Reports: Anxiety, Depression Endocrine/Metabolic History: Reports: Obesity/BMI 30+ Hematologic History: Reports: None Immunologic History: Reports: None Oncologic (Cancer) History: Reports: None Dermatologic History: Reports: Cellulitis, Eczema Other Dermatologic History: 12/08/18 cellulitis right leg - Infectious Disease History Infectious Disease History: Reports: None - Past Surgical History HEENT Surgical History: Reports: Tonsillectomy, Other (See Below) Other HEENT Surgeries/Procedures: Facial surgery to upper lip from dog bite GI Surgical History: Reports: Appendectomy Female Surgical History: Reports: Hysterectomy Other Musculoskeletal Surgeries/Procedures:: back surgery Dermatological Surgical History: Reports: Other (See Below) Social & Family History - Family History Family Medical History: Unobtainable - Tobacco Use Tobacco Use Status *Q: Never Tobacco User - Caffeine Use Caffeine Use: Reports: Soda Other Caffeine Use: one can mellow yellow a day - Recreational Drug Use Recreational Drug Use: No - Living Situation & Occupation Living situation: Reports: , with Spouse 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 ED EXAM,LOWER BACK PAIN/INJURY - Physical Exam Exam: See Below Exam Limited By: No Limitations General Appearance: Alert, WD/WN, No Apparent Distress Respiratory/Chest: No Respiratory Distress, Lungs Clear, Normal Breath Sounds, No Accessory Muscle Use, Chest Non-Tender Cardiovascular: Normal Peripheral Pulses, Regular Rate, Rhythm, No Edema, No Gallop, No JVD, No Murmur, No Rub GI/Abdominal: Normal Bowel Sounds, Soft, No Organomegaly, No Distention, No Abnormal Bruit, No Mass, Tender (Mild right lateral and right lower quadrant) Back Exam: Normal Inspection, Full Range of Motion, CVA Tenderness (R), Other (Tenderness to light palpation throughout the right flank and lateral abdomen.). No: CVA Tenderness (L) Neurological: Alert, Normal Mood/Affect, CN II-XII Intact, Normal Gait, No Motor/Sensory Deficits, Oriented x 3 Psychiatric: Normal Affect, Normal Mood Skin Exam: Warm, Dry, Intact, Normal Color, No Rash Course - Vital Signs Last Recorded V/S: Last Vital Signs Temp 97.8 F 09/15/21 20:55 Pulse 82 09/15/21 20:55 Resp 16 09/15/21 20:55 BP 169/98 H 09/15/21 20:55 Pulse Ox 99 09/15/21 20:55 - Orders/Labs/Meds Labs: Laboratory Tests 09/15/21 09/15/21 09/15/21 Range/Units 17:40 17:40 17:40 WBC 7.07 (3.98-10.04) K/mm3 RBC 4.75 (3.98-5.22) M/mm3 Hgb 13.1 D (11.2-15.7) gm/dl Hct 40.0 (34.1-44.9) % MCV 84.2 (79.4-94.8) fl MCH 27.6 (25.6-32.2) pg MCHC 32.8 (32.2-35.5) g/dl RDW Std Deviation 47.5 H (36.4-46.3) fL Plt Count 282 D (182-369) K/mm3 MPV 10.7 (9.4-12.3) fl Neut % (Auto) 54.6 (34.0-71.1) % Lymph % (Auto) 21.9 (19.3-51.7) % [place] % (Auto) 18.7 H (4.7-12.5) % Eos % (Auto) 3.0 (0.7-5.8) Baso % (Auto) 1.1 (0.1-1.2) % Neut # (Auto) 3.86 (1.56-6.13) K/mm3 Lymph # (Auto) 1.55 (1.18-3.74) K/mm3 [place] # (Auto) 1.32 H (0.24-0.36) K/mm3 Eos # (Auto) 0.21 (0.04-0.36) K/mm3 Baso # (Auto) 0.08 (0.01-0.08) K/mm3 Sodium 142 (136-145) mEq/L Potassium 4.4 (3.5-5.1) mEq/L Chloride 104 (98-107) mEq/L Carbon Dioxide 29 (21-32) mEq/L Anion Gap 13.4 (5-15) BUN 17 (7-18) mg/dL Creatinine 1.0 (0.55-1.02) mg/dL Est Cr Clr Drug Dosing 70.16 mL/min Estimated GFR (MDRD) 59 (>60) mL/min BUN/Creatinine Ratio 17.0 (14-18) Glucose 85 (70-99) mg/dL Calcium 8.5 (8.5-10.1) mg/dL Total Bilirubin 0.3 (0.2-1.0) mg/dL AST 12 L (15-37) U/L ALT 22 (14-59) U/L Alkaline Phosphatase 149 H (46-116) U/L C-Reactive Protein <0.2 (<1.0) mg/dL Total Protein 7.3 (6.4-8.2) g/dl Albumin 3.9 (3.4-5.0) g/dl Globulin 3.4 gm/dL Albumin/Globulin Ratio 1.2 (1-2) Lipase 155 (73-393) U/L Urine Color (Yellow) Urine Appearance (Clear) Urine pH (5.0-8.0) Ur Specific Henderson (1.005-1.030) Urine Protein (Negative) Urine Glucose (UA) (Negative) Urine Ketones (Negative) Urine Occult Blood (Negative) Urine Nitrite (Negative) Urine Bilirubin (Negative) Urine Urobilinogen (0.2-1.0) Ur Leukocyte Esterase (Negative) Urine RBC (0-5) /hpf Urine WBC (0-5) /hpf Ur Squamous Epith Cells (0-5) /hpf Urine Bacteria (FEW) /hpf Urine Mucus (FEW) /hpf Urine Yeast (Budding) (NOT SEEN) 09/15/21 Range/Units 19:25 WBC (3.98-10.04) K/mm3 RBC (3.98-5.22) M/mm3 Hgb (11.2-15.7) gm/dl Hct (34.1-44.9) % MCV (79.4-94.8) fl MCH (25.6-32.2) pg MCHC (32.2-35.5) g/dl RDW Std Deviation (36.4-46.3) fL Plt Count (182-369) K/mm3 MPV (9.4-12.3) fl Neut % (Auto) (34.0-71.1) % Lymph % (Auto) (19.3-51.7) % [place] % (Auto) (4.7-12.5) % Eos % (Auto) (0.7-5.8) Baso % (Auto) (0.1-1.2) % Neut # (Auto) (1.56-6.13) K/mm3 Lymph # (Auto) (1.18-3.74) K/mm3 [place] # (Auto) (0.24-0.36) K/mm3 Eos # (Auto) (0.04-0.36) K/mm3 Baso # (Auto) (0.01-0.08) K/mm3 Sodium (136-145) mEq/L Potassium (3.5-5.1) mEq/L Chloride (98-107) mEq/L Carbon Dioxide (21-32) mEq/L Anion Gap (5-15) BUN (7-18) mg/dL Creatinine (0.55-1.02) mg/dL Est Cr Clr Drug Dosing mL/min Estimated GFR (MDRD) (>60) mL/min BUN/Creatinine Ratio (14-18) Glucose (70-99) mg/dL Calcium (8.5-10.1) mg/dL Total Bilirubin (0.2-1.0) mg/dL AST (15-37) U/L ALT (14-59) U/L Alkaline Phosphatase (46-116) U/L C-Reactive Protein (<1.0) mg/dL Total Protein (6.4-8.2) g/dl Albumin (3.4-5.0) g/dl Globulin gm/dL Albumin/Globulin Ratio (1-2) Lipase (73-393) U/L Urine Color Yellow (Yellow) Urine Appearance Clear (Clear) Urine pH 6.5 (5.0-8.0) Ur Specific Henderson 1.025 (1.005-1.030) Urine Protein Negative (Negative) Urine Glucose (UA) Negative (Negative) Urine Ketones Negative (Negative) Urine Occult Blood Negative (Negative) Urine Nitrite Negative (Negative) Urine Bilirubin Negative (Negative) Urine Urobilinogen 1.0 (0.2-1.0) Ur Leukocyte Esterase Negative (Negative) Urine RBC 0-5 (0-5) /hpf Urine WBC 0-5 (0-5) /hpf Ur Squamous Epith Cells 5-10 H (0-5) /hpf Urine Bacteria Moderate H (FEW) /hpf Urine Mucus Few (FEW) /hpf Urine Yeast (Budding) Few H (NOT SEEN) Meds: Medications Discontinued Medications Generic Name Dose Route Start Last Admin Trade Name Davina PRN Reason Stop Dose Admin Hydrocodone Bitart/Acetaminophen 1 tab 09/15/21 20:10 09/15/21 20:31 Acetaminophen/Hydrocodone 325-5 Mg Tab PO 09/15/21 20:11 1 tab ONETIME ONE Administration Hydromorphone HCl 0.5 mg 09/15/21 17:08 09/15/21 17:41 Hydromorphone 0.5 Mg/0.5 Ml Syringe IVPUSH 09/15/21 17:09 0.5 mg ONETIME ONE Administration Sodium Chloride 1,000 mls @ 150 mls/hr 09/15/21 17:08 09/15/21 17:42 Normal Saline IV 09/15/21 23:47 150 mls/hr NOW STA Administration Ketorolac Tromethamine 15 mg 09/15/21 20:10 09/15/21 20:32 Ketorolac 30 Mg/Ml Sdv IVPUSH 09/15/21 20:11 15 mg ONETIME ONE Administration Ondansetron HCl 4 mg 09/15/21 17:08 09/15/21 17:42 Ondansetron 4 Mg/2 Ml Sdv IVPUSH 09/15/21 17:09 4 mg ONETIME ONE Administration - Re-Assessments/Exams Free Text/Narrative Re-Assessment/Exam: Patient is a 46-year-old female presenting to the emergency department for evaluation of right flank pain with radiation to her right lateral knee abdomen and right lower quadrant abdomen. Symptoms have been going on for the last week intermittently. She describes it as a sharp pain with intermittent spasming. Patient does have a history of MS and states that the right side of her body is normally more numb than the left, however she is still experiencing significant pain. She has had no known injuries. On exam, she does have tenderness to the right flank, right lateral abdomen, and right lower quadrant abdomen. Area is tender to both light and deep palpation. Straight suspicion for musculoskeletal pain, however we will rule out kidney stone and kidney infection. Have ordered blood work, urinalysis, CT scan. We will give her IV fluids of normal saline, Zofran, Dilaudid. Departure - Departure Time of Disposition: 20:13 Disposition: Home, Self-Care 01 Condition: Good Clinical Impression: Back pain Qualifiers: Back pain location: low back pain Chronicity: acute Back pain laterality: right Sciatica presence: without sciatica Qualified Code(s): M54.50 - Low back pain, unspecified - Discharge Information *PRESCRIPTION DRUG MONITORING PROGRAM REVIEWED*: Yes *COPY OF PRESCRIPTION DRUG MONITORING REPORT IN PATIENT JUAN CARLOS: No Prescriptions: Hydrocodone/Acetaminophen [Hydrocodone-Acetamin 5-325 mg] 1 each PO Q4H PRN #12 tablet PRN Reason: Pain Instructions: Acute Back Pain, Adult Referrals: Amber Ventura PA-C [Primary Care Provider] - Forms: ED Department Discharge, Interfacility Transfer [facility] Additional Instructions: Use ibuprofen routinely for pain. Do not take a dose of ibuprofen this evening as you received a nonsteroidal anti-inflammatory medication in the ER. Use the hydrocodone with Tylenol as needed for pain. Not work or drive for 12 hours after taking this as it can be sedating. Use baclofen with caution when taking the hydrocodone as this can cause increased sedation. Apply heat intermittently to the area of discomfort. If symptoms fail to improve over the next few days, recommend follow-up in the clinic, or return to ER as needed. Sepsis Event Note (ED) - Evaluation Sepsis Screening Result: No Definite Risk - Focused Exam Vital Signs: Vital Signs Temp Pulse Resp BP Pulse Ox 09/15/21 20:55 97.8 F 82 16 169/98 H 99 09/15/21 20:30 98.8 F 82 16 169/98 H 99 09/15/21 16:44 96.6 F L 71 16 164/80 H 97
[2021-09-15 20:52] VITALS: BP 169/98; PULSE 82
== END 2021-09-15 20:45 | disposition home or self-care (01) ==
LOC: JD.ED 16:29
DX: M54.50 Low back pain, unspecified (principal); K21.9 Gastro-esophageal reflux disease without esophagitis; E66.9 Obesity, unspecified; Z68.34 Body mass index [BMI] 34.0-34.9, adult; Z88.8 Allergy status to other drugs, medicaments and biological substances; Z88.0 Allergy status to penicillin; Z88.2 Allergy status to sulfonamides; Z79.899 Other long term (current) drug therapy
CPT/HCPCS: 36415; 74176; 80053; 81001; 83690; 85025; 86140; 96374; 96375; 99284; A9270; J1170; J1885; J2405; J7030

== ENCOUNTER 2021-09-18 13:47 | Emergency (ER) | payer MEDICAID ==
[2021-09-18 14:06] VITALS: BP 168/77; PULSE 77
--- NOTE | 2021-09-18 14:28 | EDM.PDOC ---
ED HPI GENERAL MEDICAL PROBLEM - General Chief Complaint: Back Pain or Injury Stated Complaint: BACK PAIN Time Seen by Provider: 09/18/21 14:12 Source of Information: Reports: Patient, RN Notes Reviewed History Limitations: Reports: No Limitations - History of Present Illness INITIAL COMMENTS - FREE TEXT/NARRATIVE: Patient is a 46-year-old female who presents to the ER for her back/right flank/abdomen pain. States that she was evaluated in this ER a few days ago, had a CT and was sent home with some pain meds. Patient notes that she developed a rash, yesterday and it seems to be spreading into today. This is an erythematous rash with a vesicular pattern to it, consistent with shingles outbreak. Not have any worsening symptoms like fevers or chills, cough or shortness of breath or any sort of nausea/vomiting/diarrhea. States that the pain medication she was prescribed does not seem to be helping much. States that she did have chickenpox when she was a young child. Back Pain Score (Numeric/FACES): 10 - Related Data Allergies Allergy/AdvReac Type Severity Reaction Status Date / Time chlorhexidine Allergy Intermediate Rash Verified 09/18/21 14:06 ketoconazole Allergy Intermediate Rash Verified 09/18/21 14:06 Penicillins AdvReac Intermediate Rash Verified 09/18/21 14:06 sulfamethoxazole AdvReac Mild Vomiting Verified 09/18/21 14:06 [From Bactrim] trimethoprim [From Bactrim] AdvReac Mild Vomiting Verified 09/18/21 14:06 Home Meds: Home Meds Ocrelizumab [Ocrevus] 300 mg IV Q6M 06/26/19 [History] Omeprazole 20 mg PO DAILY 11/25/19 [History] Loratadine [Claritin] 10 mg PO DAILY PRN 12/17/19 [History] Ibuprofen 600 mg PO Q6H PRN #60 tablet 12/18/19 [Rx] Ondansetron [Zofran ODT] 4 mg PO Q6H PRN #10 tab.dis 09/03/20 [Rx] Baclofen 1 tab PO QID PRN 09/15/21 [History] Escitalopram [Lexapro] 20 mg PO DAILY 09/15/21 [History] Pramipexole [Mirapex] 1 tab PO BEDTIME 09/15/21 [History] buPROPion HCL [Bupropion HCl Sr] 450 mg PO DAILY 09/15/21 [History] hydrOXYzine HCL [Hydroxyzine HCl] 1 - 2 tab PO Q6H PRN 09/15/21 [History] Acetaminophen/oxyCODONE [Percocet 325-5 MG] 1 each PO Q6H PRN #20 tab 09/18/21 [Rx] Lidocaine 5% 1 gm TOP TID PRN #1 tube 09/18/21 [Rx] valACYclovir HCl [valACYclovir] 1,000 mg PO TID 7 Days #21 tablet 09/18/21 [Rx] Past Medical History HEENT History: Reports: Allergic Rhinitis Other HEENT History: wears glasses Respiratory History: Reports: Bronchitis, Recurrent Gastrointestinal History: Reports: GERD Genitourinary History: Reports: Renal Calculus, UTI, Recurrent, Other (See Below) Other Genitourinary History: Dysuria EXHIBITS MANAGER History: Reports: Dysfunctional Uterine Bleeding, Other (See Below) Other EXHIBITS MANAGER History: Abnormal uterine bleeding, lichen sclerosus of female genitalia, pruritis of vagina, vaginal candidiasis Musculoskeletal History: Reports: Back Pain, Chronic Other Musculoskeletal History: Right ankle sprain, broken finger in 6th grade, clavicle fracture at age 3 Neurological History: Reports: Headaches, Chronic, Migraines, MS Psychiatric History: Reports: Anxiety, Depression Endocrine/Metabolic History: Reports: Obesity/BMI 30+ Dermatologic History: Reports: Cellulitis, Eczema Other Dermatologic History: 12/08/18 cellulitis right leg - Infectious Disease History Infectious Disease History: Reports: Chicken Pox - Past Surgical History HEENT Surgical History: Reports: Tonsillectomy, Other (See Below) Other HEENT Surgeries/Procedures: Facial surgery to upper lip from dog bite GI Surgical History: Reports: Appendectomy Female Surgical History: Reports: Hysterectomy Other Musculoskeletal Surgeries/Procedures:: back surgery Social & Family History - Family History Family Medical History: Unobtainable - Tobacco Use Tobacco Use Status *Q: Never Tobacco User Second Hand Smoke Exposure: No - Caffeine Use Caffeine Use: Reports: Coffee Other Caffeine Use: one can mellow yellow a day - Recreational Drug Use Recreational Drug Use: No - Living Situation & Occupation Living situation: Reports: , with Spouse 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 ED EXAM, SKIN/RASH Exam: See Below Exam Limited By: No Limitations General Appearance: Alert, WD/WN, No Apparent Distress Respiratory/Chest: No Respiratory Distress, Lungs Clear, Normal Breath Sounds, No Accessory Muscle Use, Chest Non-Tender Cardiovascular: Normal Peripheral Pulses, Regular Rate, Rhythm, No Edema GI/Abdominal: Other (Rash on right lower abdomen, see skin for further detail) Neurological: Alert, Oriented, Normal Cognition, No Motor/Sensory Deficits Psychiatric: Normal Affect, Normal Mood Skin: Warm, Dry, Intact, Normal Color, Zoster-Like Rash (to right lower abdomen) Course - Vital Signs Last Recorded V/S: Last Vital Signs Temp 98.1 F 09/18/21 14:05 Pulse 77 09/18/21 14:05 Resp 20 09/18/21 14:05 BP 168/77 H 09/18/21 14:05 Pulse Ox 100 09/18/21 14:05 - Re-Assessments/Exams Free Text/Narrative Re-Assessment/Exam: 09/18/21 14:26 Patient presents to the ER for evaluation of her ongoing pain and developing rash. This is clinically consistent with shingles. Patiently placed on different pain medication, some oral antivirals, and some topical lidocaine to see if this helps relieve some of her symptoms. She will have to follow-up in clinic this week if not feeling much better. Patient verbalized understanding. Departure - Departure Time of Disposition: 14:26 Disposition: Home, Self-Care 01 Condition: Good Clinical Impression: Shingles outbreak Qualifiers: Herpes zoster complications: without complications Qualified Code(s): B02.9 - Zoster without complications - Discharge Information *PRESCRIPTION DRUG MONITORING PROGRAM REVIEWED*: Yes *COPY OF PRESCRIPTION DRUG MONITORING REPORT IN PATIENT JUAN CARLOS: No Prescriptions: Lidocaine 5% 1 gm TOP TID PRN #1 tube PRN Reason: Pain Acetaminophen/oxyCODONE [Percocet 325-5 MG] 1 each PO Q6H PRN #20 tab PRN Reason: Pain valACYclovir HCl [valACYclovir] 1,000 mg PO TID 7 Days #21 tablet Instructions: Shingles, [id number] Referrals: Amber Ventura PA-C [Primary Care Provider] - Additional Instructions: You were evaluated in the ER today for your rash/ongoing pain. Your course is clinically consistent with shingles. You have been started on a few different medications. Please discontinue your use of the hydrocodone medication you received at a previous visit as you have been started on a different pain medication. You were given a prescription for a strong pain medication, oxycodone/acetaminophen 5/325 mg, please take 1 tab every 6 hours as needed for pain not relieved by Tylenol or ibuprofen alone. Please note this medication does contain Tylenol in it, so do not take more than 4000 mg in a 24-hour time span. These medications can be addictive, so please take as few as possible to achieve adequate pain control. These meds can also be quite constipating, re commend that you increase your oral fluid intake and take a stool softener like MiraLAX while taking these medications. Do not drive while taking this medication. You have been given a prescription for topical lidocaine to place on the rash to see if this helps relieve some of the pain. You may apply 2-3 times daily as needed for pain management. Antiviral will be valacyclovir 1 tablet 3 times a day for the next 7 days. This medication was electronically sent to the [place] pharmacy located in the [facility] grocery store. Would strongly recommend you follow-up with your regular care provider sometime this week in clinic if symptoms are not much better. Do not hesitate to return to the ER at any time if symptoms change or worsen. Sepsis Event Note (ED) - Focused Exam Vital Signs: Vital Signs Temp Pulse Resp BP Pulse Ox 09/18/21 14:05 98.1 F 77 20 168/77 H 100
== END 2021-09-18 14:43 | disposition home or self-care (01) ==
LOC: JD.ED 13:47
DX: B02.9 Zoster without complications (principal); K21.9 Gastro-esophageal reflux disease without esophagitis; E66.9 Obesity, unspecified; Z68.34 Body mass index [BMI] 34.0-34.9, adult; Z88.0 Allergy status to penicillin; Z88.1 Allergy status to other antibiotic agents; Z88.8 Allergy status to other drugs, medicaments and biological substances; Z79.899 Other long term (current) drug therapy
CPT/HCPCS: 99282

== ENCOUNTER 2021-09-22 13:57 | Emergency (ER) | payer MEDICAID ==
[2021-09-22 14:04] VITALS: BP 129/72; PULSE 81
[2021-09-22] MEDS ORDERED: Gabapentin 300 MG Cap PO ONE (15:52)
--- NOTE | 2021-09-22 16:24 | EDM.PDOC ---
ED HPI GENERAL MEDICAL PROBLEM - General Chief Complaint: General Stated Complaint: ROB GELLER Time Seen by Provider: 09/22/21 15:17 Source of Information: Reports: Patient History Limitations: Reports: No Limitations - History of Present Illness INITIAL COMMENTS - FREE TEXT/NARRATIVE: 46-year-old female presents the emergency department via [place] [facility] with complaints of severe pain due to shingles outbreak. Patient was seen here in this emergency department on 2020 and diagnosed with shingles on her mid abdomen radiating around her right flank and into her mid back horizontally. Patient states she was prescribed valacyclovir, lidocaine and hydrocodone at that visit however she states that the pain is still quite severe and she is almost out of her hydrocodone tabs. She denies any recent fever, chills, nausea, vomiting or diarrhea. Patient has also been taking MiraLAX to prevent constipation due to hydrocodone. She states her primary care provider is Zina Santizo. Back Pain Score (Numeric/FACES): 5 - Related Data Allergies Allergy/AdvReac Type Severity Reaction Status Date / Time chlorhexidine Allergy Intermediate Rash Verified 09/22/21 14:04 ketoconazole Allergy Intermediate Rash Verified 09/22/21 14:04 Penicillins AdvReac Intermediate Rash Verified 09/22/21 14:04 sulfamethoxazole AdvReac Mild Vomiting Verified 09/22/21 14:04 [From Bactrim] trimethoprim [From Bactrim] AdvReac Mild Vomiting Verified 09/22/21 14:04 Home Meds: Home Meds Ocrelizumab [Ocrevus] 300 mg IV Q6M 06/26/19 [History] Omeprazole 20 mg PO DAILY 11/25/19 [History] Loratadine [Claritin] 10 mg PO DAILY PRN 12/17/19 [History] Ibuprofen 600 mg PO Q6H PRN #60 tablet 12/18/19 [Rx] Ondansetron [Zofran ODT] 4 mg PO Q6H PRN #10 tab.dis 09/03/20 [Rx] Baclofen 1 tab PO QID PRN 09/15/21 [History] Escitalopram [Lexapro] 20 mg PO DAILY 09/15/21 [History] Pramipexole [Mirapex] 1 tab PO BEDTIME 09/15/21 [History] buPROPion HCL [Bupropion HCl Sr] 450 mg PO DAILY 09/15/21 [History] hydrOXYzine HCL [Hydroxyzine HCl] 1 - 2 tab PO Q6H PRN 09/15/21 [History] Acetaminophen/oxyCODONE [Percocet 325-5 MG] 1 each PO Q6H PRN #20 tab 09/18/21 [Rx] Lidocaine 5% 1 gm TOP TID PRN #1 tube 09/18/21 [Rx] valACYclovir HCl [valACYclovir] 1,000 mg PO TID 7 Days #21 tablet 09/18/21 [Rx] Gabapentin [Neurontin] 300 mg PO DAILY #30 cap 09/22/21 [Rx] oxyCODONE HCl/Acetaminophen [Percocet 5-325 mg Tablet] 1 each PO Q4H PRN #20 tablet 09/22/21 [Rx] Past Medical History HEENT History: Reports: Allergic Rhinitis Other HEENT History: wears glasses Cardiovascular History: Reports: None Respiratory History: Reports: Bronchitis, Recurrent Gastrointestinal History: Reports: GERD Genitourinary History: Reports: Renal Calculus, UTI, Recurrent, Other (See Below) Other Genitourinary History: Dysuria SIGHT MOUNTER History: Reports: Dysfunctional Uterine Bleeding, Other (See Below) Other SIGHT MOUNTER History: Abnormal uterine bleeding, lichen sclerosus of female genitalia, pruritis of vagina, vaginal candidiasis Musculoskeletal History: Reports: Back Pain, Chronic Other Musculoskeletal History: Right ankle sprain, broken finger in 6th grade, clavicle fracture at age 3 Neurological History: Reports: Headaches, Chronic, Migraines, MS Psychiatric History: Reports: Anxiety, Depression Endocrine/Metabolic History: Reports: Obesity/BMI 30+ Hematologic History: Reports: None Immunologic History: Reports: None Oncologic (Cancer) History: Reports: None Dermatologic History: Reports: Cellulitis, Eczema Other Dermatologic History: 12/08/18 cellulitis right leg - Infectious Disease History Infectious Disease History: Reports: Chicken Pox, Shingles - Past Surgical History Head Surgeries/Procedures: Reports: None HEENT Surgical History: Reports: Tonsillectomy, Other (See Below) Other HEENT Surgeries/Procedures: Facial surgery to upper lip from dog bite Cardiovascular Surgical History: Reports: None Respiratory Surgical History: Reports: None GI Surgical History: Reports: Appendectomy Female Surgical History: Reports: Hysterectomy Endocrine Surgical History: Reports: None Neurological Surgical History: Reports: None Musculoskeletal Surgical History: Reports: None Other Musculoskeletal Surgeries/Procedures:: back surgery Oncologic Surgical History: Reports: None Dermatological Surgical History: Reports: Other (See Below) Social & Family History - Family History Family Medical History: Unobtainable - Tobacco Use Tobacco Use Status *Q: Never Tobacco User Second Hand Smoke Exposure: No - Caffeine Use Caffeine Use: Reports: None Other Caffeine Use: one can mellow yellow a day - Recreational Drug Use Recreational Drug Use: No - Living Situation & Occupation Living situation: Reports: , with Spouse 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 ED EXAM, GENERAL - Physical Exam Exam: See Below (Vesicular rash noted along mid abdomen horizontally on right side running along right flank and right thoracic area unfound) Exam Limited By: No Limitations General Appearance: Alert, WD/WN, Moderate Distress Ears: Normal External Exam, Hearing Grossly Normal Nose: Normal Inspection Throat/Mouth: Normal Inspection, Normal Lips, Normal Voice, No Airway Compromise Head: Atraumatic Neck: Normal Inspection, Supple Respiratory/Chest: No Respiratory Distress, No Accessory Muscle Use Cardiovascular: Normal Peripheral Pulses, Regular Rate, Rhythm GI/Abdominal: No Distention, Other (Vesicular rash noted along mid abdomen on the right side running around right flank and into mid back on the right side) (Female) Exam: Deferred Rectal (Female) Exam: Deferred Back Exam: Other (Vesicular rash noted horizontally on the right side of the patient's back along the thoracic area) Extremities: Normal Inspection Neurological: Alert, Oriented, Normal Cognition Psychiatric: Normal Affect, Normal Mood Skin Exam: Warm, Rash Lymphatic: No Adenopathy Course - Vital Signs Text/Narrative:: As stated above, patient presents with a recent diagnosis of shingles running horizontally along her mid abdomen around her right flank and the middle of the base of her back. Patient does have a vesicular rash noted consistent with shingles. Will give the patient 300 mg of gabapentin while here in the emergency department. She will then be discharged home with a prescription for gabapentin and hydrocodone tablets. She will need to follow-up with her primary care provider in about a week for reevaluation. Last Recorded V/S: Last Vital Signs Temp 98.0 F 12/28/21 14:03 Pulse 81 09/22/21 14:03 Resp 18 09/22/21 14:03 BP 129/72 09/22/21 14:03 Pulse Ox 97 09/22/21 14:03 - Orders/Labs/Meds Orders: Active Orders 24 hr Category Date Time Status Gabapentin [Neurontin] Med 09/22/21 15:52 Once 300 mg PO ONETIME ONE Departure - Departure Time of Disposition: 16:34 Disposition: Home, Self-Care 01 Condition: Good Clinical Impression: Shingles outbreak Qualifiers: Herpes zoster complications: without complications Qualified Code(s): B02.9 - Zoster without complications - Discharge Information Prescriptions: Gabapentin [Neurontin] 300 mg PO DAILY #30 cap oxyCODONE HCl/Acetaminophen [Percocet 5-325 mg Tablet] 1 each PO Q4H PRN #20 tablet PRN Reason: Pain (Moderate 4-6) Instructions: Shingles, [id number] Referrals: Amber Ventura PA-C [Primary Care Provider] - Additional Instructions: You were seen in the emergency department today with worsening pain due to shingles. While you are in the emergency department I did give you a medication called gabapentin. This medication is used to treat nerve pain. I have sent a prescription for this medication to your pharmacy. Tomorrow you may take 1 tab twice a daily and then starting on you may take 1 tab 3 times daily thereafter. You will need to follow-up with your primary care provider in about a week for reevaluation of your shingles outbreak. I have also sent a prescription for a narcotic pain medication called Percocet to your pharmacy. You may take 1 tab every 4 hours as needed for more severe pain not relieved by Tylenol or ibuprofen. Keep in mind that if you are taking this medication every 4 hours you likely will become constipated and should be taking a stool softener like MiraLAX daily. Be sure to drink plenty of fluids and eat a high-fiber diet. Should your condition worsen or change, do not hesitate returning to the emergency department. Sepsis Event Note (ED) - Focused Exam Vital Signs: Vital Signs Temp Pulse Resp BP Pulse Ox 09/22/21 14:03 98.0 F 81 18 129/72 97 - My Orders Last 24 Hours: My Active Orders 09/22/21 15:52 Gabapentin [Neurontin] 300 mg PO ONETIME ONE - Assessment/Plan Last 24 Hours: My Active Orders 09/22/21 15:52 Gabapentin [Neurontin] 300 mg PO ONETIME ONE
== END 2021-09-22 17:14 | disposition home or self-care (01) ==
LOC: JD.ED 13:57
DX: B02.9 Zoster without complications (principal); K21.9 Gastro-esophageal reflux disease without esophagitis; E66.9 Obesity, unspecified; Z88.8 Allergy status to other drugs, medicaments and biological substances; Z88.0 Allergy status to penicillin; Z88.1 Allergy status to other antibiotic agents; Z88.2 Allergy status to sulfonamides; Z79.899 Other long term (current) drug therapy; Z68.34 Body mass index [BMI] 34.0-34.9, adult
CPT/HCPCS: 99283; A9270

== ENCOUNTER 2022-02-10 21:32 | Emergency (ER) | payer BC, MEDICAID ==
[2022-02-10 21:56] VITALS: BP 146/66; PULSE 87
[2022-02-10] MEDS ORDERED: Fluorescein 1 MG Ophth Strip EYERT ONE (23:08)
[2022-02-10] MEDS ORDERED: Proparacaine 0.5% Ophth Soln 15 ML Bottle EYERT ONE (23:08)
[2022-02-10] MEDS ORDERED: Erythromycin Base 0.5% Ophth Oint 1 GM Tube EYERT ONE (23:30)
[2022-02-10] MEDS ORDERED: Acetaminophen/HYDROcodone 325-5 MG Tab PO ONE (23:31)
[2022-02-11] MEDS ORDERED: Acetaminophen/HYDROcodone 325-10 MG Tab PO ONE (00:14)
== END 2022-02-11 00:20 | disposition home or self-care (01) ==
LOC: JD.ED 21:32
DX: H57.89 Other specified disorders of eye and adnexa (principal); K21.9 Gastro-esophageal reflux disease without esophagitis; E66.9 Obesity, unspecified; Z88.1 Allergy status to other antibiotic agents; Z88.6 Allergy status to analgesic agent; Z88.0 Allergy status to penicillin; Z79.899 Other long term (current) drug therapy; Z68.33 Body mass index [BMI] 33.0-33.9, adult
CPT/HCPCS: 99283; A9270

== ENCOUNTER 2022-02-24 00:44 | Emergency (ER) | payer BC, MEDICAID ==
[2022-02-24] MEDS ORDERED: Benzonatate 100 MG Cap PO ONE (01:37)
[2022-02-24 02:28] LABS: CORONAVIRUS COVID-19 NAA NEGATIVE (NEGATIVE)
[2022-02-24 02:54] VITALS: BP 121/58; PULSE 78
== END 2022-02-24 02:54 | disposition home or self-care (01) ==
LOC: JD.ED 00:44
DX: J40 Bronchitis, not specified as acute or chronic (principal); J01.10 Acute frontal sinusitis, unspecified; K21.9 Gastro-esophageal reflux disease without esophagitis; E66.9 Obesity, unspecified; Z68.33 Body mass index [BMI] 33.0-33.9, adult; Z88.1 Allergy status to other antibiotic agents; Z88.8 Allergy status to other drugs, medicaments and biological substances; Z88.0 Allergy status to penicillin; Z88.6 Allergy status to analgesic agent; Z79.899 Other long term (current) drug therapy; Z20.822 Contact with and (suspected) exposure to COVID-19
CPT/HCPCS: 0241U; 99283; A9270

== ENCOUNTER 2022-06-20 03:12 | Emergency (ER) | payer BC, MEDICAID ==
[2022-06-20 03:35] VITALS: BP 152/76; PULSE 85
[2022-06-20 04:23] LABS: CORONAVIRUS COVID-19 NAA NEGATIVE (NEGATIVE)
[2022-06-20] MEDS ORDERED: Albuterol 6.7 GM Inhaler INH ONE (05:46)
== END 2022-06-20 06:36 | disposition home or self-care (01) ==
LOC: JD.ED 03:12
DX: J20.8 Acute bronchitis due to other specified organisms (principal); K21.9 Gastro-esophageal reflux disease without esophagitis; E66.9 Obesity, unspecified; Z68.33 Body mass index [BMI] 33.0-33.9, adult; Z88.1 Allergy status to other antibiotic agents; Z88.0 Allergy status to penicillin; Z88.2 Allergy status to sulfonamides; Z88.8 Allergy status to other drugs, medicaments and biological substances; Z79.899 Other long term (current) drug therapy; Z20.822 Contact with and (suspected) exposure to COVID-19
CPT/HCPCS: 0240U; 71046; 94640; 99284; A9270; 99283

== ENCOUNTER 2022-08-27 00:33 | Emergency (ER) | payer BC, MEDICAID ==
[2022-08-27] MEDS ORDERED: Cetirizine 10 MG Tab PO ONE (01:14)
[2022-08-27 01:41] VITALS: BP 122/76; PULSE 87
== END 2022-08-27 01:40 | disposition home or self-care (01) ==
LOC: JD.ED 00:33
DX: L29.9 Pruritus, unspecified (principal); K21.9 Gastro-esophageal reflux disease without esophagitis; E66.9 Obesity, unspecified; Z68.32 Body mass index [BMI] 32.0-32.9, adult; Z88.8 Allergy status to other drugs, medicaments and biological substances; Z88.0 Allergy status to penicillin; Z88.2 Allergy status to sulfonamides; Z79.899 Other long term (current) drug therapy
CPT/HCPCS: 99283; A9270

== ENCOUNTER 2022-09-06 20:55 | Emergency (ER) | payer BC, MEDICAID ==
[2022-09-06 21:29] VITALS: BP 159/72; PULSE 74
[2022-09-06 22:40] LABS: CORONAVIRUS COVID-19 NAA POSITIVE (NEGATIVE)
== END 2022-09-06 23:11 | disposition home or self-care (01) ==
LOC: JD.ED 20:55
DX: U07.1 COVID-19 (principal); E66.9 Obesity, unspecified; Z68.32 Body mass index [BMI] 32.0-32.9, adult; Z88.1 Allergy status to other antibiotic agents; Z88.0 Allergy status to penicillin; Z88.2 Allergy status to sulfonamides; Z79.899 Other long term (current) drug therapy; Z90.49 Acquired absence of other specified parts of digestive tract; Z90.710 Acquired absence of both cervix and uterus
CPT/HCPCS: 0241U; 36415; 71046; 80053; 83735; 83880; 85025; 99283

== ENCOUNTER 2022-09-09 14:52 | Emergency (ER) | payer BC, MEDICAID ==
[2022-09-09] MEDS ORDERED: Sodium Chloride 0.9% 1,000 ML IV ONE (15:30)
[2022-09-09] MEDS ORDERED: Sodium Chloride 0.9% 10 ML Syringe FLUSH PRN (15:30)
[2022-09-09] MEDS ORDERED: Ketorolac 30 MG/ML SDV IVPUSH ONE (15:31)
[2022-09-09] MEDS ORDERED: diphenhydrAMINE 50 MG/ML SDV IVPUSH ONE (15:31)
[2022-09-09] MEDS ORDERED: Metoclopramide 10 MG/2 ML SDV IVPUSH ONE (15:31)
[2022-09-09 17:22] VITALS: BP 128/85; PULSE 85
== END 2022-09-09 17:22 | disposition home or self-care (01) ==
LOC: JD.ED 14:52
DX: U07.1 COVID-19 (principal); R51.9 Headache, unspecified; E66.9 Obesity, unspecified; Z68.33 Body mass index [BMI] 33.0-33.9, adult; Z88.1 Allergy status to other antibiotic agents; Z88.0 Allergy status to penicillin; Z88.2 Allergy status to sulfonamides; Z79.899 Other long term (current) drug therapy
CPT/HCPCS: 70450; 96361; 96374; 96375; 99284; J1200; J1885; J2765; J3490; J7030

== ENCOUNTER 2022-10-24 11:43 | Emergency (ER) | payer BC, MEDICAID ==
[2022-10-24 12:04] VITALS: BP 151/78; PULSE 96
[2022-10-24] MEDS ORDERED: Acetaminophen 325 MG Tab PO ONE (12:25)
== END 2022-10-24 13:25 | disposition home or self-care (01) ==
LOC: JD.ED 11:43
DX: S06.0X0A Concussion without loss of consciousness, initial encounter (principal); S00.01XA Abrasion of scalp, initial encounter; F41.9 Anxiety disorder, unspecified; F32.A Depression, unspecified; E66.9 Obesity, unspecified; Z68.32 Body mass index [BMI] 32.0-32.9, adult; Z79.899 Other long term (current) drug therapy; Z88.1 Allergy status to other antibiotic agents; Z88.2 Allergy status to sulfonamides; Z88.8 Allergy status to other drugs, medicaments and biological substances; W19.XXXA Unspecified fall, initial encounter
CPT/HCPCS: 99283; A9270

== ENCOUNTER 2023-03-23 18:23 | Emergency (ER) | payer MEDICARE, MEDICAID, OTHER ==
[2023-03-23] MEDS ORDERED: HYDROmorphone 1 MG/ML Syringe IM ONE (19:12)
[2023-03-23] MEDS ORDERED: Ondansetron 4 MG Tab.DIS PO ONE (19:12)
[2023-03-23 20:40] VITALS: BP 139/79; PULSE 76
== END 2023-03-23 20:39 | disposition home or self-care (01) ==
LOC: JD.ED 18:23
DX: S52.571A Other intraarticular fracture of lower end of right radius, initial encounter for closed fracture (principal); S52.621A Torus fracture of lower end of right ulna, initial encounter for closed fracture; K21.9 Gastro-esophageal reflux disease without esophagitis; E66.9 Obesity, unspecified; Z68.32 Body mass index [BMI] 32.0-32.9, adult; Z86.16 Personal history of COVID-19; Z88.8 Allergy status to other drugs, medicaments and biological substances; Z88.1 Allergy status to other antibiotic agents; Z88.0 Allergy status to penicillin; Z88.2 Allergy status to sulfonamides; Z79.899 Other long term (current) drug therapy; W01.0XXA Fall on same level from slipping, tripping and stumbling without subsequent striking against object, initial encounter; Y92.59 Other trade areas as the place of occurrence of the external cause
CPT/HCPCS: 29125; 73090; 96372; 99283; A9270; J1170

== ENCOUNTER 2023-04-21 08:43 | Day surgery (SDC) | payer MEDICARE, OTHER, MEDICAID ==
[~2023-04-21 08:43] MED LIST changes: -Lactated Ringers 1,000 ML IV SCH; -Lidocaine 1%/Sod Bicarbonate in NS 8.4% 1 ML Syringe IDERM PRN; +Sodium Chloride 0.9% 10 ML Syringe FLUSH SCH
[2023-04-21] MEDS ORDERED: Ondansetron 4 MG/2 ML SDV IVPUSH PRN (09:24)
[2023-04-21] MEDS ORDERED: Naloxone 0.4 MG/ML SDV IVPUSH PRN (09:24)
[2023-04-21] MEDS: Lactated Ringers 1,000 ML IV SCH ×3 (09:30→14:25)
[2023-04-21] MEDS ORDERED: Rocuronium 50 MG/5 ML Vial ONE (09:32)
[2023-04-21] MEDS ORDERED: fentaNYL 250 MCG/5 ML SDV ONE (09:32)
[2023-04-21] MEDS ORDERED: Ketorolac 30 MG/ML SDV ONE (09:32)
[2023-04-21] MEDS ORDERED: Lidocaine 1% 5 ML VIAL ONE (09:32)
[2023-04-21] MEDS ORDERED: Propofol 200 MG/20 ML SDV ONE (09:32)
[2023-04-21] MEDS ORDERED: Ondansetron 4 MG/2 ML SDV ONE (09:32)
[2023-04-21] MEDS ORDERED: ceFAZolin 2 GM Vial ONE (10:44)
[2023-04-21] MEDS: Bupivacaine 0.5%/EPINEPHrine 1:200,000 50 ML MDV ONE ×2 (10:51→11:03)
[2023-04-21] MEDS: ceFAZolin 1 GM Vial ONE ×2 (11:00→11:11)
[2023-04-21] MEDS: Sodium Chloride 0.9% 50 ML SDV ONE ×2 (11:03→11:30)
[2023-04-21] MEDS: Iopamidol 755 Mg/ML 100 ML Bottle ONE ×2 (11:04→11:30)
[2023-04-21] MEDS ORDERED: Labetalol 100 MG/20 ML MDV ONE (11:52)
[2023-04-21] MEDS: HYDROmorphone 0.5 MG/0.5 ML Syringe IVPUSH PRN ×2 (12:31→12:46)
[2023-04-21] MEDS: fentaNYL 100 MCG/2 ML SDV IVPUSH PRN ×3 (12:32→13:05)
[2023-04-21] MEDS ORDERED: Acetaminophen/HYDROcodone 325-10 MG Tab PO ONE (13:30)
[2023-04-21 16:28] VITALS: BP 141/65; PULSE 80
== END 2023-04-21 16:10 | disposition home or self-care (01) ==
LOC: JD.SDS 08:43
PROVIDERS: ATTEND Specialist
DX: K80.10 Calculus of gallbladder with chronic cholecystitis without obstruction (principal); D13.5 Benign neoplasm of extrahepatic bile ducts; F41.9 Anxiety disorder, unspecified; F32.A Depression, unspecified; K21.9 Gastro-esophageal reflux disease without esophagitis; G43.909 Migraine, unspecified, not intractable, without status migrainosus; G25.81 Restless legs syndrome; M54.9 Dorsalgia, unspecified; E66.9 Obesity, unspecified; G89.29 Other chronic pain; Z88.0 Allergy status to penicillin; Z88.1 Allergy status to other antibiotic agents; Z88.8 Allergy status to other drugs, medicaments and biological substances; Z79.899 Other long term (current) drug therapy; Z90.710 Acquired absence of both cervix and uterus; Z98.890 Other specified postprocedural states; Z87.891 Personal history of nicotine dependence
CPT/HCPCS: 47563; 76000; A9270; J0690; J1170; J1885; J2405; J2704; J3010; J3490; J7120; Q9967

== ENCOUNTER 2024-01-15 23:08 | Emergency (ER) | payer MEDICARE ==
[2024-01-15 23:51] LABS: BASOPHILS ABSOLUTE AUTO 0.2 K/mm3 (0.0-0.2); BASOPHILS PERCENT AUTO 1.5 % (0.0-1.0); EOSINOPHILS ABSOLUTE AUTO 0.4 K/mm3 (0.0-0.4); EOSINOPHILS PERCENT AUTO 4.4 % (0.0-6.0); HEMATOCRIT 40.1 % (37.0-47.0); HEMOGLOBIN 13.1 gm/dl (12.0-16.0); IMMATURE GRAN ABSOLUTE AUTO 0.08 K/mm3 (0.00-0.05); IMMATURE GRAN PERCENT AUTO 0.8 % (0.0-0.4); LYMPHOCYTES ABSOLUTE AUTO 2.7 K/mm3 (1.0-4.8); MEAN CORPUSCULAR HEMOGLOBIN 27.8 pg (28.0-32.0); MEAN CORPUSCULAR HGB CONC 32.7 g/dl (32.0-36.0); MEAN CORPUSCULAR VOLUME 85.1 fl (83.0-99.0); MEAN PLATELET VOLUME 10.4 fl (9.4-12.3); MONOCYTES ABSOLUTE AUTO 1.3 K/mm3 (0.0-0.8); MONOCYTES PERCENT AUTO 12.8 % (0.0-8.0); NEUTROPHILS ABSOLUTE AUTO 5.3 K/mm3 (1.8-7.7); NEUTROPHILS PERCENT AUTO 53.5 % (41.0-71.0); PLATELET COUNT,PLT 294 K/mm3 (150-400); RED BLOOD CELL COUNT 4.71 M/mm3 (4.10-5.30); WHITE BLOOD CELL COUNT,WBC 9.82 K/mm3 (3.9-11.3)
[2024-01-16] MEDS: Sodium Chloride 0.9% 10 ML Syringe FLUSH PRN (00:10)
[2024-01-16 00:12] LABS: A/G RATIO 1.2 (1-2); ALBUMIN 3.4 g/dl (3.4-5.0); ANION GAP 10.9 (5-15); BILIRUBIN TOTAL 0.4 mg/dL (0.2-1.0); C-REACTIVE PROTEIN 0.3 mg/dL (<0.30); CALCIUM 8.7 mg/dL (8.5-10.1); EST CRCL DRUG DOSING (CG) 68.65 mL/min; POTASSIUM,K 3.9 mEq/L (3.5-5.1); PROTEIN TOTAL,TP 6.3 g/dl (6.4-8.2)
[2024-01-16 01:32] VITALS: BP 150/74; PULSE 74
== END 2024-01-16 01:31 | disposition home or self-care (01) ==
LOC: JD.ED 23:08
DX: S00.212A Abrasion of left eyelid and periocular area, initial encounter (principal); S09.90XA Unspecified injury of head, initial encounter; G35 Multiple sclerosis; K21.9 Gastro-esophageal reflux disease without esophagitis; Z88.1 Allergy status to other antibiotic agents; Z88.0 Allergy status to penicillin; Z88.2 Allergy status to sulfonamides; Z88.8 Allergy status to other drugs, medicaments and biological substances; Z79.899 Other long term (current) drug therapy; Z86.16 Personal history of COVID-19; Z90.710 Acquired absence of both cervix and uterus; W01.198A Fall on same level from slipping, tripping and stumbling with subsequent striking against other object, initial encounter
CPT/HCPCS: 36415; 70450; 70486; 72125; 73130; 80053; 85025; 86140; 96365; 99284; J2930; J3490; J7050